=== PATIENT | male | born 1940 | race Caucasian/White ===

== ENCOUNTER 2020-09-01 20:26 | Inpatient (IN) ==
--- OUTSIDE RECORDS SUMMARY | 2020-09-01 20:29 | External Medical Summary | Continuity of Care Document ---
:1940 Author Name Andreas Paul, Provider Address Unavailable Unavailable , Care Team Providers Name Role Phone Jeffrey [email or web address] [email or web address] PCP, UNKNOWN Unavailable Unavailable Problems Active medical history not documented Allergies and Adverse Reactions Allergy history not documented Medications Medications not documented Procedures Procedures not documented Immunizations Immunizations not documented Plan of Treatment Planned Observations Planned Goals not documented Results No Known Results Results not documented
--- NOTE | 2020-09-01 21:02 | Emergency Department Note ---
History of Present Illness General Chief complaint: Shortness of Breath/Dyspnea Stated complaint: SOB; tumor R neck Time Seen by Provider: 09/01/20 20:48 Source: patient History of Present Illness Provider complaint: Shortness of breath Onset (ago): day(s) Location: chest Severity: moderate Pain Consistency: + intermittent Quality: + other (Shortness of breath) Relieved By: + none Associated symptoms: + chest pain (Tightness in chest today); no cough, no fever/chills and no nausea/vomiting This is an 80-year-old male with a history of CHF and a neck tumor presenting with shortness of breath today. The patient stated that he felt short of breath and had some tightness in his chest today. He was just discharged from the hospital at [facility] where they asked the ambulance to take him but they would not take him there. 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 He states that shortness of breath is worse when he moves around. He does have chronic swelling to his legs. He thinks he is on a blood thinner but is not sure. He denies any fever, cough, vomiting or diarrhea. He does feel some pressure in his abdomen. 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 I did obtain further history from the patient's as well as Bekah his daughter. They state that the patient was seen in [facility] 5 days ago. He was transferred to [facility] where he was discharged in order to get chemo and immunotherapy. The patient does have an appointment next Friday in [facility]. The patient was on Xarelto for atrial fibrillation but was taken off 2 weeks ago. He has been complaining of headaches for the past 2 months and has been taking ibuprofen on a regular basis. He was recently placed on narcotics which has caused him some bowel issues and he has not been eating very well recently. Home Medications Medication Instructions Recorded Confirmed Type diltiazem HCl 240 mg PO QAM 06/15/18 09/01/20 History furosemide [Lasix] 40 mg PO QAM 06/15/18 09/01/20 History potassium chloride [Klor-Con M20] 20 meq PO BID 06/15/18 09/01/20 History albuterol sulfate [Ventolin HFA] 2 puff INHALATION Q6H PRN 09/01/20 09/01/20 History artificial tears(hypromellose) 1 drp OPR TID 09/01/20 09/01/20 History atorvastatin 20 mg PO HS 09/01/20 09/01/20 History donepezil 5 mg PO QAM 09/01/20 09/01/20 History fentanyl 1 patch TRANSDERMAL [id number] 09/01/20 09/01/20 History metoprolol succinate 50 mg PO BID 09/01/20 09/01/20 History Allergies Allergy/AdvReac Type Severity Reaction Status Date / Time No Known Allergies Allergy Verified 09/01/20 22:27 Past Med/Surg History Medical History (Updated 09/02/20 @ 02:08 by Bindu Roman DO) Atrial fibrillation Dementia Dyslipidemia History of pacemaker Hypertension Neoplasm of neck Surgical History (Updated 09/02/20 @ 02:08 by Bindu Roman DO) History of cholecystectomy History of left knee replacement Family History (Updated 09/02/20 @ 02:09 by Bindu Roman DO) Other Family history non-contributory Social History (Updated 09/02/20 @ 02:09 by Bindu Roman DO) Smoking Status: Unknown if ever smoked Tobacco Type: Smokeless Tobacco (Dip or Chew) Hx Alcohol Use: Yes Alcohol type: beer Hx Substance Use: No Preferred Language: Turkish Feels Safe at Home: Yes Review of Systems See HPI for pertinent positives & negatives. and A total of 10 systems reviewed and were otherwise negative Physical Exam Vital Signs Vital Signs - 24 hr 09/01/20 20:25 09/01/20 20:48 09/01/20 20:57 Temperature 36.4 C L Temperature Source Oral Pulse Rate 89 96 H Pulse Rate from SpO2 Sensor 90 Pulse Rhythm Irregular Pulse Strength Normal Respiratory Rate 18 23 Respiratory Effort / Characteristics Non-Labored Respiratory Depth Normal Respiratory Pattern Regular Blood Pressure 141/45 H 136/70 Blood Pressure Mean 77 83 Blood Pressure Position Lying Pulse Oximetry 98 95 94 Oxygen Delivery Method Room Air Sepsis Recent Fever Within 48 Hours No Sepsis New/Unexplained Change in Mental Status N/A Sepsis Action Taken by Nursing No Action Required 09/01/20 21:00 09/01/20 22:00 09/01/20 22:30 Temperature Temperature Source Pulse Rate 98 H 76 91 H Pulse Rate from SpO2 Sensor 92 H 78 89 Pulse Rhythm Pulse Strength Respiratory Rate 19 14 19 Respiratory Effort / Characteristics Respiratory Depth Respiratory Pattern Blood Pressure 131/56 L 146/70 H 151/67 H Blood Pressure Mean 81 95 95 Blood Pressure Position Pulse Oximetry 96 99 98 Oxygen Delivery Method Sepsis Recent Fever Within 48 Hours Sepsis New/Unexplained Change in Mental Status Sepsis Action Taken by Nursing 09/01/20 23:00 09/01/20 23:45 09/01/20 23:50 Temperature Temperature Source Pulse Rate 85 88 Pulse Rate from SpO2 Sensor 199 H Pulse Rhythm Pulse Strength Respiratory Rate 17 19 Respiratory Effort / Characteristics Respiratory Depth Respiratory Pattern Blood Pressure 120/63 Blood Pressure Mean 82 Blood Pressure Position Pulse Oximetry 85 L Oxygen Delivery Method Room Air Sepsis Recent Fever Within 48 Hours Sepsis New/Unexplained Change in Mental Status Sepsis Action Taken by Nursing 09/02/20 00:00 09/02/20 00:03 09/02/20 00:19 Temperature 36.5 C Temperature Source Oral Pulse Rate 82 89 90 Pulse Rate from SpO2 Sensor 84 79 Pulse Rhythm Irregular Pulse Strength Normal Respiratory Rate 18 17 16 Respiratory Effort / Characteristics Respiratory Depth Respiratory Pattern Blood Pressure 138/55 L 138/55 L Blood Pressure Mean 74 82 Blood Pressure Position Lying Pulse Oximetry 99 98 96 Oxygen Delivery Method Sepsis Recent Fever Within 48 Hours Sepsis New/Unexplained Change in Mental Status Sepsis Action Taken by Nursing 09/02/20 00:31 09/02/20 00:46 09/02/20 00:47 Temperature Temperature Source Pulse Rate 88 90 89 Pulse Rate from SpO2 Sensor 82 87 90 Pulse Rhythm Pulse Strength Respiratory Rate 19 21 14 Respiratory Effort / Characteristics Respiratory Depth Respiratory Pattern Blood Pressure 109/59 L 145/93 H Blood Pressure Mean 69 105 Blood Pressure Position Pulse Oximetry 98 97 94 Oxygen Delivery Method Sepsis Recent Fever Within 48 Hours Sepsis New/Unexplained Change in Mental Status Sepsis Action Taken by Nursing 09/02/20 01:00 09/02/20 01:01 09/02/20 01:16 Temperature Temperature Source Pulse Rate 84 82 91 H Pulse Rate from SpO2 Sensor 80 85 88 Pulse Rhythm Pulse Strength Respiratory Rate 19 18 18 Respiratory Effort / Characteristics Respiratory Depth Respiratory Pattern Blood Pressure 138/73 116/70 Blood Pressure Mean 81 75 Blood Pressure Position Pulse Oximetry 100 95 97 Oxygen Delivery Method Sepsis Recent Fever Within 48 Hours Sepsis New/Unexplained Change in Mental Status Sepsis Action Taken by Nursing 09/02/20 01:30 09/02/20 01:31 09/02/20 01:52 Temperature Temperature Source Pulse Rate 86 94 H 89 Pulse Rate from SpO2 Sensor 83 87 89 Pulse Rhythm Pulse Strength Respiratory Rate 16 16 17 Respiratory Effort / Characteristics Respiratory Depth Respiratory Pattern Blood Pressure 138/76 110/51 L Blood Pressure Mean 87 84 Blood Pressure Position Pulse Oximetry 100 100 99 Oxygen Delivery Method Sepsis Recent Fever Within 48 Hours Sepsis New/Unexplained Change in Mental Status Sepsis Action Taken by Nursing Constitutional: Vital signs reviewed. Eyes: Pupils are equal round reactive to light. Conjunctiva are noninjected. ENT: Mucous membranes are dry. There is a large orange sized necrotic mass to the right side of the neck with swelling to the right pinna. Respiratory: Clear to auscultation bilaterally. Breath sounds are equal bilaterally. Cardiovascular: Irregularly irregular rhythm. Normal rate. GI: Soft, nondistended and nontender. Bowel sounds are present. Rectal: Guaiac positive melena. Musculoskeletal: Bilateral lower extremity pitting edema. Integumentary: No cyanosis. or jaundice. Neurological: The patient is awake and alert. No focal deficits. Psychiatric: Normal affect. Course Administered Medications Pantoprazole Sodium 40 mg/ (Dextrose) 100 mls @ 20 mls/hr IV Q5H [facility] Stop: 10/01/20 22:16 Last Admin: 09/01/20 22:24 Dose: 8 mg/hr, 20 mls/hr Documented by: [id number] Vancomycin HCl 2,500 mg/ (Sodium Chloride) 550 mls @ 180 mls/hr IV NOW ONE Stop: 09/02/20 03:55 Last Admin: 09/02/20 01:55 Dose: 180 mls/hr Documented by: [id number] Discontinued Medications Pantoprazole Sodium (Protonix Bolus/Drip) 0 mls @ 1 mls/hr IV ONE STA Stop: 09/01/20 22:00 Last Admin: 09/01/20 22:24 Dose: 1 mls/hr Documented by: [id number] Pantoprazole Sodium 80 mg/ (Dextrose) 120 mls @ 400 mls/hr IV NOW ONE Stop: 09/01/20 22:16 Last Infusion: 09/01/20 22:49 Dose: 0 mls/hr Documented by: [id number] Admin: 09/01/20 22:24 Dose: 400 mls/hr Documented by: [id number] Cefepime HCl (Maxipime) 2,000 mg in 20 mls @ 5 mls/min IV NOW STA; Protocol Stop: 09/01/20 22:17 Last Admin: 09/01/20 22:27 Dose: 5 mls/min Documented by: [id number] Morphine Sulfate (Morphine Sulfate 2 Mg/Ml Carp) 2 mg IV NOW STA Stop: 09/02/20 01:41 Last Admin: 09/02/20 01:48 Dose: 2 mg Documented by: [id number] Ondansetron HCl (Ondansetron Inj 2 Mg/Ml 2 Ml Vial) 4 mg IV NOW STA Stop: 09/02/20 01:41 Last Admin: 09/02/20 01:48 Dose: 4 mg Documented by: [id number] Critical Care Time Critical Care Time: Yes Total Critical Care Time: 45 I have personally spent approximately 45 minutes of critical care time in the direct management of this patient. This includes bedside care, interpretation of diagnostic studies, and testing, discussion with consultants, patient, and family members, and other required patient management activities. These minutes are in excess of all separately billable procedures. Medical Decision Making Differential Diagnosis CHF exacerbation, pulmonary edema, neck mass, pneumonia, anemia Medical Records Attestation: I reviewed the patient's medical records. I did perform a limited focused review of portions of the patient's old chart on the electronic medical record. The patient has had no recent pertinent visits to this hospital. Home Medications Current Medication List: was personally reviewed by me Laboratory Data Attestation: I reviewed the patient's lab results. Result diagrams: 09/01/20 21:49 09/01/20 21:49 Lab Results 09/01/20 09/01/20 09/01/20 Range/Units 21:49 21:49 21:49 WBC 38.61 H* (4.8-10.8) K/uL RBC 2.16 L (4.7-6.1) M/uL Hgb 6.2 L* (14.0-18.0) g/dL Hct 19.2 L* (42-52) % MCV 88.9 (80-100) fL MCH 28.7 (25-34) pg MCHC 32.3 (32-36) g/dL RDW Std Deviation 47.6 H (36.4-46.3) fL RDW Coeff of Sheri 15.2 H (11.5-14.5) % Plt Count 364 (130-400) K/uL MPV 8.9 (7.4-10.4) fL Absolute Nucleated RBC 1.73 H (0-0) K/uL Nucleated RBC % (auto) 4.5 % Neutrophils % (Manual) 87.9 % Lymphocytes % (Manual) 2.6 % Monocytes % (Manual) 6.1 % Metamyelocytes % (Man) 1.7 % Myelocytes % (Man) 1.7 % Neutrophils # (Manual) 33.94 H (1.4-6.5) K/uL Total Absolute Neuts 33.94 H (1.4-6.5) K/uL Lymphocytes # (Manual) 1.00 L (1.2-3.4) K/uL Total Abs Lymphocytes 1.00 L (1.2-3.4) K/uL Monocytes # (Manual) 2.36 H (0.11-0.59) K/uL Metamyelocytes # (Man) 0.66 H (0-0) K/uL Myelocytes # (Manual) 0.66 H (0-0) K/uL Polychromasia 1+ PT Cancelled INR Cancelled APTT Cancelled PTT Ratio Cancelled Sodium 137 (136-145) mmol/L Potassium 4.7 (3.5-5.1) mmol/L Chloride 104 (98-107) mmol/L Carbon Dioxide 19 L (21-32) mmol/L Anion Gap 13.0 H (3-11) BUN 81 H (7-18) mg/dl Creatinine 2.37 H (0.6-1.4) mg/dl Est Cr Clr Drug Dosing 31.2 ml/min Est GFR ( Amer) 28.7 Est GFR (Non-Af Amer) 24.8 BUN/Creatinine Ratio 34.3 H (10-20) Glucose 169 H (70-99) mg/dl Lactate (0.4-2.0) mmol/L Uric Acid 10.7 H (2.6-7.2) mg/dl Calcium 8.0 L (8.5-10.1) mg/dl Phosphorus 4.9 (2.5-4.9) mg/dl Total Bilirubin 0.5 (0.2-1) mg/dl AST 22 (15-37) U/L ALT 32 (12-78) U/L Alkaline Phosphatase 70 (45-117) U/L Lactate Dehydrogenase (87-241) U/L Troponin I < 0.015 (0-0.045) ng/ml NT-Pro-B Natriuret Pep 4292 H (0-1800) pg/ml Total Protein 4.9 L (6.4-8.2) gm/dl Albumin 1.9 L (3.4-5.0) gm/dl Globulin 3.0 (2.5-4.0) gm/dl Albumin/Globulin Ratio 0.6 L (0.9-2) Urine Color Urine Appearance (Clear) Urine pH (4.5-7.5) Ur Specific [place] (1.000-1.030) Urine Protein (Negative) Urine Glucose (UA) (Negative) Urine Ketones (Negative) Urine Blood (Negative) Urine Nitrite (Negative) Urine Bilirubin (Negative) Urine Urobilinogen (Negative) Ur Leukocyte Esterase (Negative) Urine WBC (Auto) (0-5) /hpf Urine RBC (Auto) (0-4) /hpf U Hyaline Cast (Auto) (0-5) /lpf U Epithel Cells (Auto) (0-5) /lpf Urine Bacteria (Auto) (Negative) COVID-19 Eval Order SARS-CoV-2, RNA, NAAT (NEGATIVE) Blood Type Antibody Screen Crossmatch 09/01/20 09/01/20 09/01/20 Range/Units 21:49 21:51 21:51 WBC (4.8-10.8) K/uL RBC (4.7-6.1) M/uL Hgb (14.0-18.0) g/dL Hct (42-52) % MCV (80-100) fL MCH (25-34) pg MCHC (32-36) g/dL RDW Std Deviation (36.4-46.3) fL RDW Coeff of Sheri (11.5-14.5) % Plt Count (130-400) K/uL MPV (7.4-10.4) fL Absolute Nucleated RBC (0-0) K/uL Nucleated RBC % (auto) % Neutrophils % (Manual) % Lymphocytes % (Manual) % Monocytes % (Manual) % Metamyelocytes % (Man) % Myelocytes % (Man) % Neutrophils # (Manual) (1.4-6.5) K/uL Total Absolute Neuts (1.4-6.5) K/uL Lymphocytes # (Manual) (1.2-3.4) K/uL Total Abs Lymphocytes (1.2-3.4) K/uL Monocytes # (Manual) (0.11-0.59) K/uL Metamyelocytes # (Man) (0-0) K/uL Myelocytes # (Manual) (0-0) K/uL Polychromasia PT INR APTT PTT Ratio Sodium (136-145) mmol/L Potassium (3.5-5.1) mmol/L Chloride (98-107) mmol/L Carbon Dioxide (21-32) mmol/L Anion Gap (3-11) BUN (7-18) mg/dl Creatinine (0.6-1.4) mg/dl Est Cr Clr Drug Dosing ml/min Est GFR ( Amer) Est GFR (Non-Af Amer) BUN/Creatinine Ratio (10-20) Glucose (70-99) mg/dl Lactate 7.4 H* (0.4-2.0) mmol/L Uric Acid (2.6-7.2) mg/dl Calcium (8.5-10.1) mg/dl Phosphorus (2.5-4.9) mg/dl Total Bilirubin (0.2-1) mg/dl AST (15-37) U/L ALT (12-78) U/L Alkaline Phosphatase (45-117) U/L Lactate Dehydrogenase 249 H (87-241) U/L Troponin I (0-0.045) ng/ml NT-Pro-B Natriuret Pep (0-1800) pg/ml Total Protein (6.4-8.2) gm/dl Albumin (3.4-5.0) gm/dl Globulin (2.5-4.0) gm/dl Albumin/Globulin Ratio (0.9-2) Urine Color Yellow Urine Appearance Cloudy A (Clear) Urine pH 5.0 (4.5-7.5) Ur Specific [place] 1.018 (1.000-1.030) Urine Protein Negative (Negative) Urine Glucose (UA) Negative (Negative) Urine Ketones Trace H (Negative) Urine Blood Negative (Negative) Urine Nitrite Negative (Negative) Urine Bilirubin Negative (Negative) Urine Urobilinogen Negative (Negative) Ur Leukocyte Esterase Trace H (Negative) Urine WBC (Auto) 1-5 (0-5) /hpf Urine RBC (Auto) 0-4 (0-4) /hpf U Hyaline Cast (Auto) >30 H (0-5) /lpf U Epithel Cells (Auto) 20-30 H (0-5) /lpf Urine Bacteria (Auto) Negative (Negative) COVID-19 Eval Order SARS-CoV-2, RNA, NAAT (NEGATIVE) Blood Type Antibody Screen Crossmatch 09/01/20 09/01/20 09/02/20 Range/Units 22:33 22:55 01:16 WBC (4.8-10.8) K/uL RBC (4.7-6.1) M/uL Hgb (14.0-18.0) g/dL Hct (42-52) % MCV (80-100) fL MCH (25-34) pg MCHC (32-36) g/dL RDW Std Deviation (36.4-46.3) fL RDW Coeff of Hseri (11.5-14.5) % Plt Count (130-400) K/uL MPV (7.4-10.4) fL Absolute Nucleated RBC (0-0) K/uL Nucleated RBC % (auto) % Neutrophils % (Manual) % Lymphocytes % (Manual) % Monocytes % (Manual) % Metamyelocytes % (Man) % Myelocytes % (Man) % Neutrophils # (Manual) (1.4-6.5) K/uL Total Absolute Neuts (1.4-6.5) K/uL Lymphocytes # (Manual) (1.2-3.4) K/uL Total Abs Lymphocytes (1.2-3.4) K/uL Monocytes # (Manual) (0.11-0.59) K/uL Metamyelocytes # (Man) (0-0) K/uL Myelocytes # (Manual) (0-0) K/uL Polychromasia PT 11.7 INR 1.1 APTT 21.0 PTT Ratio 0.8 Sodium (136-145) mmol/L Potassium (3.5-5.1) mmol/L Chloride (98-107) mmol/L Carbon Dioxide (21-32) mmol/L Anion Gap (3-11) BUN (7-18) mg/dl Creatinine (0.6-1.4) mg/dl Est Cr Clr Drug Dosing ml/min Est GFR ( Amer) Est GFR (Non-Af Amer) BUN/Creatinine Ratio (10-20) Glucose (70-99) mg/dl Lactate 4.8 H* (0.4-2.0) mmol/L Uric Acid (2.6-7.2) mg/dl Calcium (8.5-10.1) mg/dl Phosphorus (2.5-4.9) mg/dl Total Bilirubin (0.2-1) mg/dl AST (15-37) U/L ALT (12-78) U/L Alkaline Phosphatase (45-117) U/L Lactate Dehydrogenase (87-241) U/L Troponin I (0-0.045) ng/ml NT-Pro-B Natriuret Pep (0-1800) pg/ml Total Protein (6.4-8.2) gm/dl Albumin (3.4-5.0) gm/dl Globulin (2.5-4.0) gm/dl Albumin/Globulin Ratio (0.9-2) Urine Color Urine Appearance (Clear) Urine pH (4.5-7.5) Ur Specific [place] (1.000-1.030) Urine Protein (Negative) Urine Glucose (UA) (Negative) Urine Ketones (Negative) Urine Blood (Negative) Urine Nitrite (Negative) Urine Bilirubin (Negative) Urine Urobilinogen (Negative) Ur Leukocyte Esterase (Negative) Urine WBC (Auto) (0-5) /hpf Urine RBC (Auto) (0-4) /hpf U Hyaline Cast (Auto) (0-5) /lpf U Epithel Cells (Auto) (0-5) /lpf Urine Bacteria (Auto) (Negative) COVID-19 Eval Order SARS-CoV-2, RNA, NAAT (NEGATIVE) Blood Type A Positive Antibody Screen NEGATIVE Crossmatch See Detail 09/02/20 09/02/20 Range/Units 01:20 01:20 WBC (4.8-10.8) K/uL RBC (4.7-6.1) M/uL Hgb (14.0-18.0) g/dL Hct (42-52) % MCV (80-100) fL MCH (25-34) pg MCHC (32-36) g/dL RDW Std Deviation (36.4-46.3) fL RDW Coeff of Sheri (11.5-14.5) % Plt Count (130-400) K/uL MPV (7.4-10.4) fL Absolute Nucleated RBC (0-0) K/uL Nucleated RBC % (auto) % Neutrophils % (Manual) % Lymphocytes % (Manual) % Monocytes % (Manual) % Metamyelocytes % (Man) % Myelocytes % (Man) % Neutrophils # (Manual) (1.4-6.5) K/uL Total Absolute Neuts (1.4-6.5) K/uL Lymphocytes # (Manual) (1.2-3.4) K/uL Total Abs Lymphocytes (1.2-3.4) K/uL Monocytes # (Manual) (0.11-0.59) K/uL Metamyelocytes # (Man) (0-0) K/uL Myelocytes # (Manual) (0-0) K/uL Polychromasia PT INR APTT PTT Ratio Sodium (136-145) mmol/L Potassium (3.5-5.1) mmol/L Chloride (98-107) mmol/L Carbon Dioxide (21-32) mmol/L Anion Gap (3-11) BUN (7-18) mg/dl Creatinine (0.6-1.4) mg/dl Est Cr Clr Drug Dosing ml/min Est GFR ( Amer) Est GFR (Non-Af Amer) BUN/Creatinine Ratio (10-20) Glucose (70-99) mg/dl Lactate (0.4-2.0) mmol/L Uric Acid (2.6-7.2) mg/dl Calcium (8.5-10.1) mg/dl Phosphorus (2.5-4.9) mg/dl Total Bilirubin (0.2-1) mg/dl AST (15-37) U/L ALT (12-78) U/L Alkaline Phosphatase (45-117) U/L Lactate Dehydrogenase (87-241) U/L Troponin I (0-0.045) ng/ml NT-Pro-B Natriuret Pep (0-1800) pg/ml Total Protein (6.4-8.2) gm/dl Albumin (3.4-5.0) gm/dl Globulin (2.5-4.0) gm/dl Albumin/Globulin Ratio (0.9-2) Urine Color Urine Appearance (Clear) Urine pH (4.5-7.5) Ur Specific [place] (1.000-1.030) Urine Protein (Negative) Urine Glucose (UA) (Negative) Urine Ketones (Negative) Urine Blood (Negative) Urine Nitrite (Negative) Urine Bilirubin (Negative) Urine Urobilinogen (Negative) Ur Leukocyte Esterase (Negative) Urine WBC (Auto) (0-5) /hpf Urine RBC (Auto) (0-4) /hpf U Hyaline Cast (Auto) (0-5) /lpf U Epithel Cells (Auto) (0-5) /lpf Urine Bacteria (Auto) (Negative) [facility], [facility], NAAT NEGATIVE (NEGATIVE) Blood Type Antibody Screen Crossmatch Imaging Data Attestation: I personally reviewed and interpreted this imaging study as follows: My Impression: Acute abdominal series x-rays per my interpretation shows cardiomegaly and dilated bowel loops. Radiologist's Impression: Preliminary Findings Only See Final Report For Complete Findings CT HEAD: No acute intracranial hemorrhage, extra-axial fluid collection or mass-effect. There is age-related generalized cerebral volume loss and presumed chronic microvascular ischemic changes in the supratentorial white matter. CT NECK: There is a large ulcerated soft tissue mass centered within the right parotid gland and extending caudally along the right sternocleidomastoid muscle. Metallic artifact from probable embolization material is visualized along the posterior margin of the right mandible. There is right cervical chain lymphadenopathy. The airway is patent. No underlying osseous invasion is visualized. Nodular thickening concerning for neoplastic involvement is visualized within the posterior and medial margins of the left pleural space, which is only partially included in the [id number]. Biapical lung nodules are partially included in the [id number], suspicious for pulmonary metastases. Moderate amount of debris is visualized within the esophagus. Prominent arthroscopic calcifications of the aortic arch and to a lesser extent the arch vessels. CT ABDOMEN & PELVIS Without Contrast: No acute findings within the abdomen or pelvis. The bowel including the appendix is unremarkable. No evidence of bowel obstruction. No free air or free fluid in the abdomen or pelvis. Left pleural effusion with pleural thickening which may indicate a malignant pleural effusion. Numerous nodules are visualized within both lung bases suspicious for pulmonary metastases. Extensive atherosclerotic calcifications of the aorta, biiliac arteries and visceral branch vessels. Lobulated cystic structure right hepatic dome with additional subcentimeter low- density lesions in both the right and left hepatic lobe which are too small to characterize. Subcentimeter low-density lesions also noted within the spleen. While these may represent cysts, given the presence of known neoplasm within the right neck, metastases are not excluded. Mild degenerative changes both hips as well as spine. Radiologist: Ayanna Angulo M.D. Study ready at 00:01 and initial results transmitted at 00:35 ECG Data Attestation: I personally reviewed and interpreted this ECG as follows: Indication: + chest pain and + SOB/dyspnea Rate (beats per minute): 92 Rhythm: + atrial fibrillation ECG ST segments: + Nonspecific ST abnormalities ECG Findings: + PVCs; no Q waves MDM Narrative I did evaluate the patient as noted above. I did obtain history from the patient as well as his and his daughter over the telephone. She does state that he is a full code. He is presenting with chest pain and shortness of breath. He is not having any chest pain right now. He also had a headache earlier but has had headaches for over 2 weeks. Ultrasound-guided IV access was established. I did place an order for continuous cardiac monitoring. The monitor showed atrial fibrillation at a rate of 92 bpm. I did order and personally review the patient's 12-lead EKG as described above. He has atrial fibrillation with nonspecific ST changes. I did order and personally reviewed the images of the patient's chest and abdominal x-rays as described above. He has some distended bowel loops and cardiomegaly. I did order a urine analysis. I did order and review the patient's blood work as noted in the electronic medical record. Hemoglobin is 6.2. White count is 38.6. Creatinine is elevated at 2.37. BUN is 81. Troponin is negative. B [employer] is elevated. Lactate is over 7. They did have a very difficult time getting blood work from him so it is unclear if this lactate might be artificially elevated. His previous labs from [facility] showed a hemoglobin of 11.2, white blood cell count of 19 and creatinine of 1 on August 28. Blood cultures were obtained. The patient was given cefepime 2 g IV. I did obtain informed consent for blood transfusion. I did order 2 units of crossmatched blood. I did start the patient on IV Protonix. He was given a bolus and a continuous drip. I did order a CT of the head, soft tissue neck and abdomen and pelvis. I did review the images myself as well as the radiology report as described above.There is no intracranial hemorrhage or acute abnormality. CT neck shows a large ulcerated soft tissue mass centered within the right parotid gland and extending caudally along the right sternocleidomastoid muscle.CT of the abdomen pelvis shows no acute findings within the abdomen pelvis. ThereIs a left pleural effusion with pleural thickening which could indicate a malignant pleural effusion and numerous nodules within both lung bases concerning for metastatic disease. I did discuss the test results with the patient. He was given morphine 2 mg IV and Zofran 4 mg IV for pain all over his body. The patient is currently being transfused his first unit of blood.He remains hemodynamically stable. He will be hospitalized for further care and evaluation. Impression & Plan Acute upper gastrointestinal bleeding, Anemia due to acute blood loss, BRINDA (acute kidney injury), Chest pain Discharge Plan Visit Data Chief Complaint: Shortness of Breath/Dyspnea Stated Complaint: SOB; tumor R neck ED Provider: Jose De Jesus Cook Discharge Problem: Acute upper gastrointestinal bleeding, Anemia due to acute blood loss, BRINDA (acute kidney injury), Chest pain Patient Disposition: Admitted As Inpatient Forms Stand Alone Forms: [facility] Prescriptions Prescriptions: No Action furosemide [Lasix] 40 mg Tablet 40 mg PO QAM RF: 0 diltiazem HCl 240 mg Capsule,Ext.Rel 24h Degradable 240 mg PO QAM RF: 0 potassium chloride [Klor-Con M20] 20 mEq Tablet,Er Particles/Crystals 20 meq PO BID RF: 0 atorvastatin 40 mg Tablet 20 mg PO HS RF: 0 donepezil 5 mg Tablet 5 mg PO QAM RF: 0 metoprolol succinate 50 mg Tablet Extended Release 24 Hr 50 mg PO BID RF: 0 albuterol sulfate [Ventolin HFA] 90 mcg/actuation Hfa Aerosol Inhaler 2 puff INHALATION Q6H PRN (Reason: Shortness Of Breath) RF: 0 artificial tears(hypromellose) 0.5 % Drops 1 drp OPR TID RF: 0 fentanyl 25 mcg/hr Patch 72 Hour 1 patch TRANSDERMAL [id number] RF: 0 Referrals Referrals: PCP,NO [Primary Care Provider] - Discharge Problem: Chest pain Qualifiers: Chest pain type: unspecified Qualified Code(s): R07.9 - Chest pain, unspecified
[2020-09-01] MEDS ORDERED: PANTOPRAZOLE BOLUS/DRIP 1 EA IV STA (21:59)
[2020-09-01] MEDS ORDERED: PANTOprazole 80 MG in DEXTROSE 5% 100 ML IV ONE (21:59)
[2020-09-01] MEDS ORDERED: CEFEPIME 2,000 MG/20 ML VIAL IV STA (22:14)
[2020-09-01] MEDS ORDERED: SODIUM CHLORIDE 0.9% 250 ML IV PRN (22:14)
[2020-09-01] MEDS ORDERED: PANTOprazole 40 MG in DEXTROSE 5% 100 ML IV SCH (22:17)
[2020-09-01 22:20] LABS: Alanine Aminotransferase 32 U/L (12-78); Albumin Level 1.9 gm/dl (3.4-5.0); Aspartate Aminotransferase 22 U/L (15-37); BUN Creatinine Ratio 34.3 (10-20); Blood Urea Nitrogen 81 mg/dl (7-18); Carbon Dioxide 19 mmol/L (21-32); Chloride 104 mmol/L (98-107); Creatinine Clr Calc Pharmacy 31.2 ml/min; Est GFR (African American) 28.7; Est GFR (Non-African American) 24.8; Glucose 169 mg/dl (70-99); Potassium 4.7 mmol/L (3.5-5.1); Sodium 137 mmol/L (136-145)
[2020-09-01 22:24] LABS: Albumin Globulin Ratio 0.6 (0.9-2); Alkaline Phosphatase 70 U/L (45-117); Bilirubin,Total 0.5 mg/dl (0.2-1); NT Pro B Type Natriuretic Pept 4292 pg/ml (0-1800); Total Protein 4.9 gm/dl (6.4-8.2); Troponin I < 0.015 ng/ml (0-0.045)
[2020-09-01 22:27] LABS: Hematocrit (blood only) 19.2 % (42-52); Hemoglobin 6.2 g/dL (14.0-18.0); Mean Corpuscular Hemoglobin 28.7 pg (25-34); Mean Corpuscular Hgb Conc 32.3 g/dL (32-36); Mean Corpuscular Volume 88.9 fL (80-100); Mean Platelet Volume 8.9 fL (7.4-10.4); Nucleated RBC # (auto) 1.73 K/uL (0-0); Nucleated RBC % (auto) 4.5 %; Platelet Count 364 K/uL (130-400); RDW Coefficient of Variation 15.2 % (11.5-14.5); RDW Standard Deviation 47.6 fL (36.4-46.3); Red Blood Count 2.16 M/uL (4.7-6.1); White Blood Count 38.61 K/uL (4.8-10.8)
[2020-09-01 22:28] LABS: ANC (manual) 33.94 K/uL (1.4-6.5); Lymphocytes % (manual) 2.6 %; Metamyelocytes # (manual) 0.66 K/uL (0-0); Metamyelocytes % (manual) 1.7 %; Monocytes # (manual) 2.36 K/uL (0.11-0.59); Monocytes % (manual) 6.1 %; Myelocytes # (manual) 0.66 K/uL (0-0); Myelocytes % (manual) 1.7 %; Neutrophils # (manual) 33.94 K/uL (1.4-6.5); Neutrophils % (manual) 87.9 %; Polychromasia 1+
[2020-09-01 23:20] LABS: INR 1.1 (0.9-1.1); Partial Thromboplastin Ratio 0.8; Prothrombin Time 11.7 Seconds (9.0-12.0)
[2020-09-02] MEDS ORDERED: VANCOMYCIN HCL 2,500 MG in SODIUM CHLORIDE 0.9% 500 ML IV ONE (00:52)
[2020-09-02] MEDS ORDERED: VANCOMYCIN CONSULT ACTIVE PRN ×2 (00:52→02:33)
[2020-09-02 01:08] LABS: Appearance Urine Cloudy (Clear); Bacteria Urine Automated Negative (Negative); Bilirubin Urine Negative (Negative); Blood Urine Negative (Negative); Color Urine Yellow; Epithelial Cell Urine Auto 20-30 /lpf (0-5); Glucose Urine UA Negative (Negative); Ketones Urine Trace (Negative); Leukocyte Esterase Urine Trace (Negative); Nitrite Urine Negative (Negative); Protein Urine Negative (Negative); RBC Urine Automated 0-4 /hpf (0-4); Specific Gravity Urine 1.018 (1.000-1.030); Urobilinogen Urine Negative (Negative)
[2020-09-02 01:20] LABS: Phosphorus 4.9 mg/dl (2.5-4.9); Uric Acid 10.7 mg/dl (2.6-7.2)
[2020-09-02 01:24] LABS: Cast Urine Automated >30 /lpf (0-5)
[2020-09-02] MEDS ORDERED: ONDANSETRON INJ 2 MG/ML 2 ML VIAL IV STA (01:40)
[2020-09-02] MEDS ORDERED: MoRPHine SULFATE 2 MG/ML CARP IV STA (01:40)
--- NOTE | 2020-09-02 02:18 | History & Physical Report ---
Date of Service September 02, 2020 Assessment & Plan (1) Anemia due to acute blood loss: Patient with normochromic, normocytic anemia with Hgb=6.2, Hct=19.2. He is not currently on any blood thinners. Concern for UGIB given complaint of abdominal pain, nausea as well as epigastric discomfort on exam. He is hemodynamically stable at present. -Admit to PCU -Maintain 2 large PIVs -Transfuse 2u PRBCs now -Monitor CBC q 6 hours -Protonix drip continued -GI Consultation appreciated -Zofran PRN nausea Present on Admission?: Yes (2) Neoplasm of neck: Patient with large neoplasm of the right neck, presumably squamous cell carcinoma. He has had very little formal workup done thus far at outside institutions. He has not had complete staging as of yet. Imaging performed today concerning for pulmonary metastases, possible malignant effusion as well as possible metastases to liver and spleen. Patient is to establish care with Heme-Onc at [facility] next week and hopes to start chemotherapy and immunotherapy. Tumor is not currently bleeding. Does not appear to be invading vessels or osseous structures on imaging -Consult Heme-Onc - assistance appreciated Present on Admission?: Yes (3) Dementia: Patient with mild dementia -Continue Aricept Present on Admission?: Yes (4) Dyslipidemia: Chronic. Stable -Continue Atorvastatin Present on Admission?: Yes (5) Hypertension: Blood pressure stable -Hold Metoprolol in setting of acute bleed -Continue to monitor Present on Admission?: Yes (6) Atrial fibrillation: Patient with pacer in place. Currently not on anticoagulation therapy given recent bleeding from tumor -Holding Metoprolol and Diltiazem for now in setting of active bleeding -Continue to monitor Present on Admission?: Yes (7) BRINDA (acute kidney injury): Elevated BUN and Cr. Uncertain baseline. Most likely secondary to poor perfusion in setting of acute blood loss anemia. UA unremarkable. TLS rare in solid tumors, patient has not yet begun chemotherapy. K, PO4 are within normal limits. Uric acid and LDH are elevated -Avoid nephrotoxic agents -Monitor renal function after transfusion -Check urine Na and Cr for FeNA Present on Admission?: Yes (8) Leukocytosis: WBC=38.6 - Neutrophil predominant. Slight elevation in myelocytes/metamyelocytes as well. ?reactive in setting of acute stress, underlying malignancy, ?infection -Check peripheral smear -Follow cultures -Empiric antibiotic coverage with Vancomycin and Cefepime F/E/N - Transfusion PRBCs x 2 units as above. Monitor electrolytes. NPO for now Ppx - NO chemoppx given concern for acute bleed, SCDs Code - Full per discussion with daughter Dispo - Admit to PCU POC - Blossom Kimble - [phone]. Updated on patient's status and care plan at time of admission. History of Present Illness Chief Complaint: SOB, abdominal pain Primary Care Provider: NO PCP History obtained through discussion with daughter - [phone] Joe Wolf is an 80yo male with history of Atrial Fibrillation, HTN, HLP and large SCC of right neck presenting with abdominal pain and SOB as well as nausea, lightheadedness, melena. Hgb=6.2 concerning for acute blood loss anemia possibly secondary to GIB. Patient has been in and out of hospitals over the last few weeks. 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 He was seen in the ER at [facility] and was sent to [facility] in [place]. They were told that the bleeding in the tumor was from an arterial source. The vessel was embolized and the patient was sent home. The PET scan was never completed. Approximately 2 weeks ago he developed weakness and shortness of breath. He was taken to [facility] and diagnosed with a UTI as well as having his Fentanyl patch discontinued. He returned home. He was seen by his home Physical Therapist on 08/28/20 and was thought to have right sided facial droop concerning for a new CVA. He returned to [facility] for workup. He was told that he did not have a stroke but that the neck tumor was compressing the nerves and structures in his neck. He returned to [place] on 08/29/[address] Mae from Med-Onc to begin a plan for chemotherapy. She felt it best to start chemotherapy and immunotherapy on an outpatient basis. The family wishes to pursue their cancer treatment locally so Dr. Mae discussed the plan with Dr. Salas in [place]. They have an appointment to see Dr. Salas on 09/05/20. Patient returned home from [place] last evening. He has been complaining of lightheadedness, nausea and abdominal pain as well as decreased PO intake. His daughter states he has had dark, tarry stools for the last 1.5 weeks. Patient states that he feels "sick" but does not offer more specific complaints at this time. ER Course: Vancomycin 2500mg, Protonix bolus and drip, Zofran 4mg IV, Morphine 2mg IV, Cefepime, 2u PRBCs started, ER reports dark, Heme+ stools Allergies Allergy/AdvReac Type Severity Reaction Status Date / Time No Known Allergies Allergy Verified 09/01/20 22:27 Home Medications Medication Instructions Recorded Confirmed Type diltiazem HCl 240 mg PO QAM 06/15/18 09/01/20 History furosemide [Lasix] 40 mg PO QAM 06/15/18 09/01/20 History potassium chloride [Klor-Con M20] 20 meq PO BID 06/15/18 09/01/20 History albuterol sulfate [Ventolin HFA] 2 puff INHALATION Q6H PRN 09/01/20 09/01/20 History artificial tears(hypromellose) 1 drp OPR TID 09/01/20 09/01/20 History atorvastatin 20 mg PO HS 09/01/20 09/01/20 History donepezil 5 mg PO QAM 09/01/20 09/01/20 History fentanyl 1 patch TRANSDERMAL [id number] 09/01/20 09/01/20 History metoprolol succinate 50 mg PO BID 09/01/20 09/01/20 History Past Med/Surg History Medical History (Updated 09/02/20 @ 02:33 by Bindu Roman DO) Atrial fibrillation Dementia Dyslipidemia History of pacemaker Hypertension Neoplasm of neck Surgical History (Updated 09/02/20 @ 02:08 by Bindu Roman DO) History of cholecystectomy History of left knee replacement Family History (Updated 09/02/20 @ 02:09 by Bindu Roman DO) Other Family history non-contributory Social History (Updated 09/02/20 @ 02:09 by Bindu Roman DO) Smoking Status: Unknown if ever smoked Tobacco Type: Smokeless Tobacco (Dip or Chew) Hx Alcohol Use: Yes Alcohol type: beer Hx Substance Use: No Preferred Language: Sammarinese Feels Safe at Home: Yes Review of Systems Review of Systems: All systems reviewed & are unremarkable except as noted in HPI & below +SOB, nausea, dizziness, abdominal pain Physical Exam Physical Exam: General: obese, elderly male, ill in appearance, awake and alert to self Skin: pale, no rashes HEENT: NC/AT, PERRL, anicteric sclera, conjunctiva without injection, external ear normal to inspection and nontender, nares patent, moist mucus membranes, dentition intact, no oropharyngeal lesions, trachea midline, no thyromegaly, large mass on right neck with eschar. No active bleeding, oozing or drainage, dressing in place Heart: +S1/S2, regular, no m/r/g Lungs: equal air entry bilaterally, no rales/rhonchi/wheezes Abd: +BS, soft, diffusely tender with voluntary guarding, most in epigastric ilia, no masses/organomegaly/ascites Ext: cool, palpable pulses in UE/LE bilaterally, 3+ edema of bilateral LE Neuro: patient oriented to self, following commands, +right facial droop Results & Data Results & Data ([facility]) Vital Signs (Past 12 Hours) Vital Signs Temp Pulse Resp BP Pulse Ox 09/02/20 00:46 90 21 145/93 H 97 09/02/20 00:31 88 19 109/59 L 98 09/02/20 00:19 36.5 C 90 16 138/55 L 96 09/02/20 00:03 89 17 138/55 L 98 09/02/20 00:00 82 18 99 09/01/20 23:50 88 19 09/01/20 23:00 85 17 120/63 85 L 09/01/20 22:30 91 H 19 151/67 H 98 09/01/20 22:00 76 14 146/70 H 99 09/01/20 21:00 98 H 19 131/56 L 96 09/01/20 20:57 94 09/01/20 20:48 96 H 23 136/70 95 09/01/20 20:25 36.4 C L 89 18 141/45 H 98 Laboratory Results Lab Results 09/01/20 09/01/20 09/01/20 Range/Units 21:49 21:49 21:49 WBC 38.61 H* (4.8-10.8) K/uL RBC 2.16 L (4.7-6.1) M/uL Hgb 6.2 L* (14.0-18.0) g/dL Hct 19.2 L* (42-52) % MCV 88.9 (80-100) fL MCH 28.7 (25-34) pg MCHC 32.3 (32-36) g/dL RDW Std Deviation 47.6 H (36.4-46.3) fL RDW Coeff of Sheri 15.2 H (11.5-14.5) % Plt Count 364 (130-400) K/uL MPV 8.9 (7.4-10.4) fL Absolute Nucleated RBC 1.73 H (0-0) K/uL Nucleated RBC % (auto) 4.5 % Neutrophils % (Manual) 87.9 % Lymphocytes % (Manual) 2.6 % Monocytes % (Manual) 6.1 % Metamyelocytes % (Man) 1.7 % Myelocytes % (Man) 1.7 % Neutrophils # (Manual) 33.94 H (1.4-6.5) K/uL Total Absolute Neuts 33.94 H (1.4-6.5) K/uL Lymphocytes # (Manual) 1.00 L (1.2-3.4) K/uL Total Abs Lymphocytes 1.00 L (1.2-3.4) K/uL Monocytes # (Manual) 2.36 H (0.11-0.59) K/uL Metamyelocytes # (Man) 0.66 H (0-0) K/uL Myelocytes # (Manual) 0.66 H (0-0) K/uL Polychromasia 1+ PT Cancelled INR Cancelled APTT Cancelled PTT Ratio Cancelled Sodium 137 (136-145) mmol/L Potassium 4.7 (3.5-5.1) mmol/L Chloride 104 (98-107) mmol/L Carbon Dioxide 19 L (21-32) mmol/L Anion Gap 13.0 H (3-11) BUN 81 H (7-18) mg/dl Creatinine 2.37 H (0.6-1.4) mg/dl Est Cr Clr Drug Dosing 31.2 ml/min Est GFR ( Amer) 28.7 Est GFR (Non-Af Amer) 24.8 BUN/Creatinine Ratio 34.3 H (10-20) Glucose 169 H (70-99) mg/dl Lactate (0.4-2.0) mmol/L Uric Acid 10.7 H (2.6-7.2) mg/dl Calcium 8.0 L (8.5-10.1) mg/dl Phosphorus 4.9 (2.5-4.9) mg/dl Total Bilirubin 0.5 (0.2-1) mg/dl AST 22 (15-37) U/L ALT 32 (12-78) U/L Alkaline Phosphatase 70 (45-117) U/L Lactate Dehydrogenase (87-241) U/L Troponin I < 0.015 (0-0.045) ng/ml NT-Pro-B Natriuret Pep 4292 H (0-1800) pg/ml Total Protein 4.9 L (6.4-8.2) gm/dl Albumin 1.9 L (3.4-5.0) gm/dl Globulin 3.0 (2.5-4.0) gm/dl Albumin/Globulin Ratio 0.6 L (0.9-2) Urine Color Urine Appearance (Clear) Urine pH (4.5-7.5) Ur Specific [place] (1.000-1.030) Urine Protein (Negative) Urine Glucose (UA) (Negative) Urine Ketones (Negative) Urine Blood (Negative) Urine Nitrite (Negative) Urine Bilirubin (Negative) Urine Urobilinogen (Negative) Ur Leukocyte Esterase (Negative) Urine WBC (Auto) (0-5) /hpf Urine RBC (Auto) (0-4) /hpf U Hyaline Cast (Auto) (0-5) /lpf U Epithel Cells (Auto) (0-5) /lpf Urine Bacteria (Auto) (Negative) COVID-19 Eval Order SARS-CoV-2, RNA, NAAT (NEGATIVE) Blood Type Antibody Screen Crossmatch 09/01/20 09/01/20 09/01/20 Range/Units 21:49 21:51 21:51 WBC (4.8-10.8) K/uL RBC (4.7-6.1) M/uL Hgb (14.0-18.0) g/dL Hct (42-52) % MCV (80-100) fL MCH (25-34) pg MCHC (32-36) g/dL RDW Std Deviation (36.4-46.3) fL RDW Coeff of Sheri (11.5-14.5) % Plt Count (130-400) K/uL MPV (7.4-10.4) fL Absolute Nucleated RBC (0-0) K/uL Nucleated RBC % (auto) % Neutrophils % (Manual) % Lymphocytes % (Manual) % Monocytes % (Manual) % Metamyelocytes % (Man) % Myelocytes % (Man) % Neutrophils # (Manual) (1.4-6.5) K/uL Total Absolute Neuts (1.4-6.5) K/uL Lymphocytes # (Manual) (1.2-3.4) K/uL Total Abs Lymphocytes (1.2-3.4) K/uL Monocytes # (Manual) (0.11-0.59) K/uL Metamyelocytes # (Man) (0-0) K/uL Myelocytes # (Manual) (0-0) K/uL Polychromasia PT INR APTT PTT Ratio Sodium (136-145) mmol/L Potassium (3.5-5.1) mmol/L Chloride (98-107) mmol/L Carbon Dioxide (21-32) mmol/L Anion Gap (3-11) BUN (7-18) mg/dl Creatinine (0.6-1.4) mg/dl Est Cr Clr Drug Dosing ml/min Est GFR ( Amer) Est GFR (Non-Af Amer) BUN/Creatinine Ratio (10-20) Glucose (70-99) mg/dl Lactate 7.4 H* (0.4-2.0) mmol/L Uric Acid (2.6-7.2) mg/dl Calcium (8.5-10.1) mg/dl Phosphorus (2.5-4.9) mg/dl Total Bilirubin (0.2-1) mg/dl AST (15-37) U/L ALT (12-78) U/L Alkaline Phosphatase (45-117) U/L Lactate Dehydrogenase 249 H (87-241) U/L Troponin I (0-0.045) ng/ml NT-Pro-B Natriuret Pep (0-1800) pg/ml Total Protein (6.4-8.2) gm/dl Albumin (3.4-5.0) gm/dl Globulin (2.5-4.0) gm/dl Albumin/Globulin Ratio (0.9-2) Urine Color Yellow Urine Appearance Cloudy A (Clear) Urine pH 5.0 (4.5-7.5) Ur Specific [place] 1.018 (1.000-1.030) Urine Protein Negative (Negative) Urine Glucose (UA) Negative (Negative) Urine Ketones Trace H (Negative) Urine Blood Negative (Negative) Urine Nitrite Negative (Negative) Urine Bilirubin Negative (Negative) Urine Urobilinogen Negative (Negative) Ur Leukocyte Esterase Trace H (Negative) Urine WBC (Auto) 1-5 (0-5) /hpf Urine RBC (Auto) 0-4 (0-4) /hpf U Hyaline Cast (Auto) >30 H (0-5) /lpf U Epithel Cells (Auto) 20-30 H (0-5) /lpf Urine Bacteria (Auto) Negative (Negative) COVID-19 Eval Order SARS-CoV-2, RNA, NAAT (NEGATIVE) Blood Type Antibody Screen Crossmatch 09/01/20 09/01/20 09/02/20 Range/Units 22:33 22:55 01:16 WBC (4.8-10.8) K/uL RBC (4.7-6.1) M/uL Hgb (14.0-18.0) g/dL Hct (42-52) % MCV (80-100) fL MCH (25-34) pg MCHC (32-36) g/dL RDW Std Deviation (36.4-46.3) fL RDW Coeff of Sheri (11.5-14.5) % Plt Count (130-400) K/uL MPV (7.4-10.4) fL Absolute Nucleated RBC (0-0) K/uL Nucleated RBC % (auto) % Neutrophils % (Manual) % Lymphocytes % (Manual) % Monocytes % (Manual) % Metamyelocytes % (Man) % Myelocytes % (Man) % Neutrophils # (Manual) (1.4-6.5) K/uL Total Absolute Neuts (1.4-6.5) K/uL Lymphocytes # (Manual) (1.2-3.4) K/uL Total Abs Lymphocytes (1.2-3.4) K/uL Monocytes # (Manual) (0.11-0.59) K/uL Metamyelocytes # (Man) (0-0) K/uL Myelocytes # (Manual) (0-0) K/uL Polychromasia PT 11.7 INR 1.1 APTT 21.0 PTT Ratio 0.8 Sodium (136-145) mmol/L Potassium (3.5-5.1) mmol/L Chloride (98-107) mmol/L Carbon Dioxide (21-32) mmol/L Anion Gap (3-11) BUN (7-18) mg/dl Creatinine (0.6-1.4) mg/dl Est Cr Clr Drug Dosing ml/min Est GFR ( Amer) Est GFR (Non-Af Amer) BUN/Creatinine Ratio (10-20) Glucose (70-99) mg/dl Lactate 4.8 H* (0.4-2.0) mmol/L Uric Acid (2.6-7.2) mg/dl Calcium (8.5-10.1) mg/dl Phosphorus (2.5-4.9) mg/dl Total Bilirubin (0.2-1) mg/dl AST (15-37) U/L ALT (12-78) U/L Alkaline Phosphatase (45-117) U/L Lactate Dehydrogenase (87-241) U/L Troponin I (0-0.045) ng/ml NT-Pro-B Natriuret Pep (0-1800) pg/ml Total Protein (6.4-8.2) gm/dl Albumin (3.4-5.0) gm/dl Globulin (2.5-4.0) gm/dl Albumin/Globulin Ratio (0.9-2) Urine Color Urine Appearance (Clear) Urine pH (4.5-7.5) Ur Specific [place] (1.000-1.030) Urine Protein (Negative) Urine Glucose (UA) (Negative) Urine Ketones (Negative) Urine Blood (Negative) Urine Nitrite (Negative) Urine Bilirubin (Negative) Urine Urobilinogen (Negative) Ur Leukocyte Esterase (Negative) Urine WBC (Auto) (0-5) /hpf Urine RBC (Auto) (0-4) /hpf U Hyaline Cast (Auto) (0-5) /lpf U Epithel Cells (Auto) (0-5) /lpf Urine Bacteria (Auto) (Negative) COVID-19 Eval Order SARS-CoV-2, RNA, NAAT (NEGATIVE) Blood Type A Positive Antibody Screen NEGATIVE Crossmatch See Detail 09/02/20 09/02/20 Range/Units 01:20 01:20 WBC (4.8-10.8) K/uL RBC (4.7-6.1) M/uL Hgb (14.0-18.0) g/dL Hct (42-52) % MCV (80-100) fL MCH (25-34) pg MCHC (32-36) g/dL RDW Std Deviation (36.4-46.3) fL RDW Coeff of Sheri (11.5-14.5) % Plt Count (130-400) K/uL MPV (7.4-10.4) fL Absolute Nucleated RBC (0-0) K/uL Nucleated RBC % (auto) % Neutrophils % (Manual) % Lymphocytes % (Manual) % Monocytes % (Manual) % Metamyelocytes % (Man) % Myelocytes % (Man) % Neutrophils # (Manual) (1.4-6.5) K/uL Total Absolute Neuts (1.4-6.5) K/uL Lymphocytes # (Manual) (1.2-3.4) K/uL Total Abs Lymphocytes (1.2-3.4) K/uL Monocytes # (Manual) (0.11-0.59) K/uL Metamyelocytes # (Man) (0-0) K/uL Myelocytes # (Manual) (0-0) K/uL Polychromasia PT INR APTT PTT Ratio Sodium (136-145) mmol/L Potassium (3.5-5.1) mmol/L Chloride (98-107) mmol/L Carbon Dioxide (21-32) mmol/L Anion Gap (3-11) BUN (7-18) mg/dl Creatinine (0.6-1.4) mg/dl Est Cr Clr Drug Dosing ml/min Est GFR ( Amer) Est GFR (Non-Af Amer) BUN/Creatinine Ratio (10-20) Glucose (70-99) mg/dl Lactate (0.4-2.0) mmol/L Uric Acid (2.6-7.2) mg/dl Calcium (8.5-10.1) mg/dl Phosphorus (2.5-4.9) mg/dl Total Bilirubin (0.2-1) mg/dl AST (15-37) U/L ALT (12-78) U/L Alkaline Phosphatase (45-117) U/L Lactate Dehydrogenase (87-241) U/L Troponin I (0-0.045) ng/ml NT-Pro-B Natriuret Pep (0-1800) pg/ml Total Protein (6.4-8.2) gm/dl Albumin (3.4-5.0) gm/dl Globulin (2.5-4.0) gm/dl Albumin/Globulin Ratio (0.9-2) Urine Color Urine Appearance (Clear) Urine pH (4.5-7.5) Ur Specific [place] (1.000-1.030) Urine Protein (Negative) Urine Glucose (UA) (Negative) Urine Ketones (Negative) Urine Blood (Negative) Urine Nitrite (Negative) Urine Bilirubin (Negative) Urine Urobilinogen (Negative) Ur Leukocyte Esterase (Negative) Urine WBC (Auto) (0-5) /hpf Urine RBC (Auto) (0-4) /hpf U Hyaline Cast (Auto) (0-5) /lpf U Epithel Cells (Auto) (0-5) /lpf Urine Bacteria (Auto) (Negative) COVID-19 [facility] SARS-CoV-2, RNA, NAAT NEGATIVE (NEGATIVE) Blood Type Antibody Screen Crossmatch Diagnostic Findings CT Head: per STAT-rad - No acute intracranial hemorrhage, extra-axial fluid collection or mass-effect. There is age-related generalized cerebral volume loss and presumed chronic microvascular ischemic changes in the supratentorial white matter. CT Neck: Per STAT-rad - There is a large ulcerated soft tissue mass centered within the right parotid gland and extending caudally along the right SCM muscle. Metallic artifact from the probable embolization material is visualized layne the posterior margin of the right mandible. There is right cervical chain LAD. The airway is patent. No underlying osseous invasion is visualized. Nodular thickening concerning for neoplastic involvement is visualized within the posterior and medial margins of the left pleural space which is only partially included int he field of view. Biapical lung nodules are partially i ncluded in the field of view suspicious for pulmonary mets. Moderate amount of debris is visualized within the esophagus. Prominent arthroscopic calcification of the aortic arch and to a lesser extent the arch vessels. CT Abd/Pelvis - Per STAT-rad - No acute findings within the abdomen or pelvis. Left pelural effusion with pleural thickening which may indicate a malignant pleural effusion. Numerous nodules are visualized within both lung bases suspicious for metastases. Extensive atherosclerosis of the aorta, iliac, visceral branch vessels. Lobulated cystic structure right hepatic dome with additional subcentimeter low density lesions in both the right and left hepatic lobe which are too small to characterize. Subcentimeter low density lesions also in thespleen. ?cysts, mets no excluded. Code Status & VTE Plan VTE Prophylaxis Plan VTE Prophylaxis will be ordered: Yes PG Care Time/CCT Total # of Minutes Spent Total Time Spent with Patient: Total time spent is greater than 50% in coordination of care (as documented) at patient's floor/unit and/or counseling patient: Coding Level of Care Code 29879 Initial Inpt Care Lvl 3 Diagnoses Anemia due to acute blood loss D62 Neoplasm of neck D49.89 Dementia F03.90 Dementia type: unspecified type Dementia behavioral disturbance: without behavioral disturbance Dyslipidemia E78.5 Hypertension I10 Hypertension type: essential hypertension Atrial fibrillation I48.20 Atrial fibrillation type: unspecified chronic BRINDA (acute kidney injury) N17.9 Leukocytosis D72.829 Leukocytosis type: unspecified (1) Dementia Dementia type: unspecified type Dementia behavioral disturbance: without behavioral disturbance Qualified Code(s): F03.90 - Unspecified dementia without behavioral disturbance (2) Hypertension Hypertension type: essential hypertension Qualified Code(s): I10 - Essential (primary) hypertension (3) Atrial fibrillation Atrial fibrillation type: unspecified chronic Qualified Code(s): I48.20 - Chronic atrial fibrillation, unspecified (4) Leukocytosis Leukocytosis type: unspecified Qualified Code(s): D72.829 - Elevated white blood cell count, unspecified
[2020-09-02] MEDS ORDERED: VANCOMYCIN HCL 1,000 MG in SODIUM CHLORIDE 0.9% 250 ML IV SCH (02:33)
[2020-09-02] MEDS ORDERED: ALBUTEROL HFA 8 GM INHALER INH PRN (02:33)
[2020-09-02] MEDS ORDERED: ACETAMINOPHEN 325 MG TAB PO PRN (02:33)
[2020-09-02] MEDS ORDERED: SODIUM CHLORIDE 0.9% 250 ML IV PRN (02:33)
[2020-09-02] MEDS ORDERED: ONDANSETRON INJ 2 MG/ML 2 ML VIAL IV PRN ×2 (02:33)
[2020-09-02] MEDS: PANTOprazole 40 MG in DEXTROSE 5% 100 ML IV SCH ×5 (03:24→21:03)
--- NOTE | 2020-09-02 07:36 | Hospitalist Progress Note ---
Date of Service September 02, 2020 Assessment & Plan (1) Anemia due to acute blood loss: Patient with normochromic, normocytic anemia with Hgb=6.2, Hct=19.2. He is not currently on any blood thinners. Concern for UGIB given complaint of abdominal pain, nausea as well as epigastric discomfort on exam. He is hemodynamically stable at present. 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 The patient has been in and out of hospitals over the last few weeks. 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 This mass began bleeding a few weeks ago during a PET scan. He was seen in the ER at [facility] and was sent to [facility] in [place]. They were told that the bleeding in the tumor was from an arterial source. The vessel was embolized and the patient was sent home. He has not had complete staging as of yet. Imaging performed today concerning for pulmonary metastases, possible malignant effusion as well as possible metastases to liver and spleen. This pt has not yet established care with Heme-Onc at [facility] and given his illness currently will liknanette not make his appointment next week, the family is open to seeing Dr Voss here and are just looking for some striaght answers regarding treatment. I am concened that as he continues to accumulate medical issues his functional decline and reduced performance status will not be in his favor to treat. Tumor is not currently bleeding. Does not appear to be invading vessels or osseous structures on imaging (3) Dementia: Patient with mild dementia -Continue Aricept (4) Dyslipidemia: Chronic. Stable -Continue Atorvastatin (5) Hypertension: Blood pressure stable -Hold Metoprolol in setting of acute bleed -Continue to monitor (6) Atrial fibrillation: Patient with pacer in place. Currently not on anticoagulation therapy given recent bleeding from tumor -Holding Metoprolol and Diltiazem for now in setting of active bleeding -Continue to monitor (7) BRINDA (acute kidney injury): Elevated BUN and Cr. Uncertain baseline. BUN elevation maybe from ugi bleed, continue hydration (8) Leukocytosis: WBC=38.6 on presentiaton - Neutrophil predominant. Slight elevation in myelocytes/metamyelocytes as well. ?reactive in setting of acute stress, underlying malignancy, ?infection -Check peripheral smear -Follow cultures -Empiric antibiotic coverage with Vancomycin and Cefepime DVT NO chemoppx given concern for acute bleed, SCDs Code - Full per discussion with daughter Dispo - Admit to PCU POC - Daughter - Shyanne - [phone]. Updated on patient's status and care plan at time of admission. Admission and Anticipated Discharge Date Admission Date: September 02, 2020 Subjective pt is in significant pain and appears painful despite his transfusion, scheduled for EGD 09/03/20. large fungating draining right periauricular mass Review of Systems Review of Systems: Mild distress and fatigue c/o headache and neck pain does have speech or swallowing issues no chest pain, pressure or palpitations no shortness of breath, cough or wheezes no abdominal pain, nausea or vomiting, diarrhea or constipation no dysuria, hematuria or frequency significant LE swelling no back pain, CVA tenderness or radicular pain no bruising, bleeding or rashes no focal signs of weakness or numbness or altered sensation no complaints of anxiety or depression.. Physical Exam Physical Exam: The patient appeared in pain pale and weak Vital signs as documented. Head exam is normocephalic atraumatic no scleral icterus Neck is with massive fungating neck mass with associated facial droop Lungs are clear to auscultation, no focal loss of breath sounds Cardiac exam, Rhythm is tachycardic and regular.. No murmurs, rubs or gallops. Abdominal exam reveals normal bowel sounds, soft non tender, no masses Extremities are edematous bilaterally and both pedal pulses are present Neurologic exam is alert and oriented, no focal loss of strength or sensation Skin is without bruises or rashes Psychologically is without concerns for anxiety or depression. Results & Data Results & Data ([facility]) Vital Signs (Past 12 Hours) Vital Signs Temp Pulse Pulse Resp BP BP Pulse Ox 09/02/20 07:13 97.7 F 86 22 135/84 95 09/02/20 06:03 97.5 F L 88 24 125/60 98 09/02/20 05:20 97.5 F L 80 24 125/75 97 09/02/20 04:50 97.9 F 86 24 134/80 96 09/02/20 04:20 97.5 F L 84 22 138/85 98 09/02/20 03:50 97.7 F 82 22 142/78 H 98 09/02/20 03:35 97.5 F L 86 22 139/81 99 09/02/20 03:18 97.5 F L 91 H 138/84 100 09/02/20 02:51 97.5 F L 91 H 138/84 100 09/02/20 02:16 93 H 18 121/63 97 09/02/20 02:01 85 14 118/66 100 09/02/20 02:00 89 17 96 09/02/20 01:53 95 H 13 100 09/02/20 01:52 89 17 110/51 L 99 09/02/20 01:31 94 H 16 138/76 100 09/02/20 01:30 86 16 100 09/02/20 01:16 91 H 18 116/70 97 09/02/20 01:01 82 18 138/73 95 09/02/20 01:00 84 19 100 09/02/20 00:47 89 14 94 09/02/20 00:46 90 21 145/93 H 97 09/02/20 00:31 88 19 109/59 L 98 09/02/20 00:19 97.7 F 90 16 138/55 L 96 09/02/20 00:03 89 17 138/55 L 98 09/02/20 00:00 82 18 99 09/01/20 23:50 88 19 09/01/20 23:00 85 17 120/63 85 L 09/01/20 22:30 91 H 19 151/67 H 98 09/01/20 22:00 76 14 146/70 H 99 09/01/20 21:00 98 H 19 131/56 L 96 09/01/20 20:57 94 09/01/20 20:48 96 H 23 136/70 95 09/01/20 20:25 97.5 F L 89 18 141/45 H 98 PG Care Time/CCT Total # of Minutes Spent Total Time Spent with Patient: Total time spent is greater than 50% in coordination of care (as documented) at patient's floor/unit and/or counseling patient: Coding Level of Care Code 71220 Subseq Hosp Care Lvl 3 Diagnoses Anemia due to acute blood loss D62 Neoplasm of neck D49.89 Dementia F03.90 Dementia behavioral disturbance: without behavioral disturbance Dementia type: unspecified type Dyslipidemia E78.5 Hypertension I10 Hypertension type: essential hypertension Atrial fibrillation I48.20 Atrial fibrillation type: unspecified chronic BRINDA (acute kidney injury) N17.9 Leukocytosis D72.829 Leukocytosis type: unspecified (1) Atrial fibrillation Atrial fibrillation type: unspecified chronic Qualified Code(s): I48.20 - Chronic atrial fibrillation, unspecified (2) Dementia Dementia behavioral disturbance: without behavioral disturbance Dementia type: unspecified type Qualified Code(s): F03.90 - Unspecified dementia without behavioral disturbance (3) Leukocytosis Leukocytosis type: unspecified Qualified Code(s): D72.829 - Elevated white blood cell count, unspecified (4) Hypertension Hypertension type: essential hypertension Qualified Code(s): I10 - Essential (primary) hypertension
[2020-09-02] MEDS ORDERED: PNEUMOCOCCAL ADMINISTRATION CHARGE ONE (08:00)
[2020-09-02] MEDS ORDERED: PNEUMOCOCCAL POLYSACCHARIDES 25 MCG/0.5 ML VIAL/SYR IM ONE (08:00)
[2020-09-02] MEDS: CEFEPIME 2,000 MG in SYRINGE 0 ML IV SCH ×2 (08:09→19:57)
[2020-09-02] MEDS: DONEPEZIL HCL 5 MG TAB PO SCH (08:13)
[2020-09-02 08:38] LABS: Creatinine Clr Calc Pharmacy 29.5 ml/min; Est GFR (African American) 26.8; Est GFR (Non-African American) 23.1; Magnesium 2.4 mg/dl (1.8-2.4)
[2020-09-02] MEDS ORDERED: FUROSEMIDE 40 MG TAB PO SCH (09:00)
[2020-09-02] MEDS ORDERED: dilTIAZem HCL 240 MG CAPCR PO SCH (09:00)
[2020-09-02] MEDS ORDERED: PANTOprazole 40 MG in SYRINGE 0 ML IV SCH (09:00)
--- NOTE | 2020-09-02 09:01 | XRay Report ---
CHEST AND ABDOMEN 2 VIEWS HISTORY: Shortness of breath.Generalized abdominal pain. COMPARISON: Chest 01/08/2006. FINDINGS: No pneumothorax. There is a small left pleural effusion. The heart is enlarged. There is a left-sided pacemaker. There is diffuse interstitial/vascular thickening consistent with mild pulmonar y edema. This has progressed in the interval. There may be a few scattered subcentimeter pulmonary no dules. The largest in the right lung apex measures 8 mm. No pneumoperitoneum. No pneumatosis. Prior c holecystectomy. No renal or ureteral calculi. Multiple borderline dilated gas-filled loops of small b owel within the abdomen. There is gas and stool seen throughout the colon. This could represent a low -grade partial small bowel obstruction versus an ileus. Mild gaseous distention of the stomach. IMPRESSION: 1. Cardiomegaly with mild interstitial pulmonary edema and a small left pleural effusion. 2. Suggestion of a few scattered pulmonary nodules with the largest in the right lung apex measuring 8 mm. 3. A few mildly dilated gas-filled loops of small bowel seen within the abdomen. There is also gas an d stool-filled colon. Therefore, this could represent an ileus or low-grade partial small bowel obstr uction. ACT 112: Negative or not required by law. Electronically signed by: Chuck Reed M.D. 09/02/2020 9:00 AM
[2020-09-02 09:03] LABS: Hematocrit (blood only) 24.8 % (42-52); Hemoglobin 8.3 g/dL (14.0-18.0); Mean Corpuscular Hemoglobin 29.1 pg (25-34); Mean Corpuscular Hgb Conc 33.5 g/dL (32-36); Mean Platelet Volume 9.6 fL (7.4-10.4); Nucleated RBC # (auto) 1.08 K/uL (0-0); Nucleated RBC % (auto) 3.4 %; Platelet Count 228 K/uL (130-400); RDW Coefficient of Variation 14.8 % (11.5-14.5); RDW Standard Deviation 45.7 fL (36.4-46.3); Red Blood Count 2.85 M/uL (4.7-6.1); White Blood Count 31.33 K/uL (4.8-10.8)
[2020-09-02] MEDS ORDERED: oxyCODONE HCL IR 5 MG TAB (IMMEDIATE RELEASE) PO PRN (09:11)
[2020-09-02 09:19] LABS: Basophils # (auto) 0.07 K/uL (0-0.2); Basophils % (auto) 0.2 %; Immature Granulocytes # (auto) 0.96 K/uL (0.00-0.02); Immature Granulocytes % (auto) 3.1 %; Lymphocytes # (auto) 0.97 K/uL (1.2-3.4); Lymphocytes % (auto) 3.1 %; Monocytes # (auto) 1.64 K/uL (0.11-0.59); Monocytes % (auto) 5.2 %; Neutrophils # (auto) 27.69 K/uL (1.4-6.5); Neutrophils % (auto) 88.4 %; Polychromasia 1+
--- NOTE | 2020-09-02 09:36 | Pharmacy Report ---
Pharmacy Abx Initial Consult - Date of Service September 02, 2020 - Pharmacy Dosing Scope Date of Consult: 09/02 Consultation requested by: Dr. Roman Pharmacy is consulted to initiate Vancomycin dosing therapy, order appropriate labs and adjust drug dose/frequency. - Subjective The patient is a 80 year old M admitted on 09/02/20 01:48. - Objective Height: 5 ft 8 in Weight: 123.1 kg Vital Signs (Past 12hrs): Vital Signs Temp Pulse Pulse Resp BP BP Pulse Ox 09/02/20 07:13 36.5 C 86 22 135/84 95 09/02/20 06:03 36.4 C L 88 24 125/60 98 09/02/20 05:20 36.4 C L 80 24 125/75 97 09/02/20 04:50 36.6 C 86 24 134/80 96 09/02/20 04:20 36.4 C L 84 22 138/85 98 09/02/20 03:50 36.5 C 82 22 142/78 H 98 09/02/20 03:35 36.4 C L 86 22 139/81 99 09/02/20 03:18 36.4 C L 91 H 138/84 100 09/02/20 02:51 36.4 C L 91 H 138/84 100 09/02/20 02:16 93 H 18 121/63 97 09/02/20 02:01 85 14 118/66 100 09/02/20 02:00 89 17 96 09/02/20 01:53 95 H 13 100 09/02/20 01:52 89 17 110/51 L 99 09/02/20 01:31 94 H 16 138/76 100 09/02/20 01:30 86 16 100 09/02/20 01:16 91 H 18 116/70 97 09/02/20 01:01 82 18 138/73 95 09/02/20 01:00 84 19 100 09/02/20 00:47 89 14 94 09/02/20 00:46 90 21 145/93 H 97 09/02/20 00:31 88 19 109/59 L 98 09/02/20 00:19 36.5 C 90 16 138/55 L 96 09/02/20 00:03 89 17 138/55 L 98 09/02/20 00:00 82 18 99 09/01/20 23:50 88 19 09/01/20 23:00 85 17 120/63 85 L 09/01/20 22:30 91 H 19 151/67 H 98 09/01/20 22:00 76 14 146/70 H 99 Lab Results (24hrs): Laboratory Tests (24 Hours) 09/02/20 09/02/20 09/02/20 08:32 07:35 07:35 WBC 31.33 H* Neut # (Auto) 27.69 H Creatinine Cancelled Est Cr Clr Drug Dosing Cancelled Procalcitonin 3.62 H 09/02/20 09/02/20 09/01/20 07:35 07:35 21:49 WBC Cancelled 38.61 H* Neut # (Auto) Cancelled Creatinine 2.51 H Est Cr Clr Drug Dosing 29.5 Procalcitonin 09/01/20 21:49 WBC Neut # (Auto) Creatinine 2.37 H Est Cr Clr Drug Dosing 31.2 Procalcitonin Micro Results: 09/01/20 22:33 Aerobic Blood Culture - Pending Blood Anaerobic Blood Culture - Pending 09/01/20 22:33 Aerobic Blood Culture - Pending Blood Anaerobic Blood Culture - Pending - Risk Factors for Resistance * Immunocompromised ) - Assessment & Plan Assessment 80 year old M admitted with anemia d/t acute blood lose, concern for UGIB, leukocytosis on admission 38.6, patient with neoplasm of neck with imaging concerning for pulmonary mets and possible mets to liver and spleen. Leukocytosis may be related to acute stress, however beginning empiric vancomycin/cefepime, until further work up completed, blood cultures pending Plan Vancomycin IV * Estimated PK Parameters: Vd 0.6 L/kg, Dillan 0.028 hr-1, t1/2 24 hr * Loading dose: 2500 mg (20mg/kg) * Maintenance dose- will order random level for this evening ~18 hours from previous dose as SCr has held steady/increased slightly from repeat, uncertain of direction of renal function * Goal trough level for 15-20 mcg/mL * Random level ordered for 09/02 @ 1999 * A less than traditional dose and/or extended dosing interval has/have been selected due to likelihood of drug accumulation in obese patient/patient with h/o CKD. Cefepime currently dosed appropriately for renal function, should he have further decline, dose will need reduced to 2 gm every 24 hours. Pharmacy will continue to follow and will adjust dose/frequency as necessary. Thank you.
[2020-09-02] MEDS: MoRPHine SULFATE 2 MG/ML CARP IV PRN ×5 (09:37→22:53)
--- NOTE | 2020-09-02 09:41 | CT Scan Report ---
HEAD CT NONCONTRAST CT DOSE: HISTORY: Headache. Neck mass. TECHNIQUE: Multiaxial CT images of the head were performed without the use of intravenous contrast. A utomated exposure control was utilized for this study. A dose lowering technique was utilized adheri ng to the principles of ALARA. Comparison: None. Findings: There is a large right-sided neck mass which is partially imaged on this study. This appear s to extend into the external auditory canal. This mass measures up to 10 cm in size. The right masto id air cells are completely opacified as well as the right middle ear cavity. There is mild mucosal t hickening within the right maxillary sinus. The left mastoid air cells are clear. The calvarium and s kull base are intact. There is no mass, hematoma, midline shift, acute infarct. White matter hypodens ity is nonspecific but suggestive of microvascular ischemic change. The ventricles and sulci demonstr ate mild age-related involutional changes. Impression: 1. No acute intracranial abnormality. 2. Please refer to the same day neck CT for further evaluation of the large right neck mass. This karan ears to extend into the external auditory canal and likely accounts for the opacified right middle ea r cavity and mastoid air cells. ACT 112: Negative or not required by law. Electronically signed by: Chuck Reed M.D. 09/02/2020 9:39 AM
--- NOTE | 2020-09-02 09:47 | CT Scan Report ---
CT soft tissue neck wo con HISTORY: Right neck mass TECHNIQUE: Multiaxial CT images of the neck were performed without contrast. COMPARISON STUDY: None. FINDINGS: Multiple subcentimeter nodules are seen within the lung apices with the largest on the righ t measuring 8 mm. This is consistent with metastatic disease. There is also nodular pleural thickenin g within the left hemithorax consistent with metastatic disease. Left-sided pacemaker is noted. Mild mucosal thickening within the right maxillary sinus. Extensive calcified plaque within the bilateral carotid bifurcations. No left-sided cervical lymphadenopathy. There is a large ulcerating right neck mass which extends through the skin surface. There is associated right cervical lymphadenopathy with invasion into the right sternocleidomastoid muscle. This neck mass measures up to 10 cm in size. Ther e are vascular collaterals along the deep surface of the neck mass. This mass invades into the inferi or right ear lobe. There is opacification of the right external auditory canal which could be due to mass effect from the right neck mass or possibly tumor extension. This likely accounts for the opacif ied right middle ear cavity and mastoid air cells. This large right neck mass is centered at the righ t parotid gland. There is mild left deviation of the airway. However, the airway appears patent. Prev ertebral soft tissues and the epiglottis are normal in thickness. IMPRESSION: 1. A large ulcerated soft tissue mass centered within the right parotid gland with associated right c ervical lymphadenopathy as described above. 2. Multiple subcentimeter pulmonary nodules and nodular thickening of the left pleura consistent with metastatic disease. ACT 112: Negative or not required by law. Electronically signed by: Chuck Reed M.D. 09/02/2020 9:45 AM
--- NOTE | 2020-09-02 09:54 | CT Scan Report ---
CT OF THE ABDOMEN AND PELVIS WITHOUT CONTRAST CLINICAL HISTORY: Abdominal pain and melena. Evaluate for perforation. COMPARISON STUDY: Abdominal series September 01, 2020. TECHNIQUE: Axial images of the abdomen and pelvis were obtained without IV contrast. Images were revi ewed in the axial, sagittal, and coronal planes. Automated exposure control was utilized for the makenzie dy. A dose lowering technique was utilized adhering to the principles of ALARA. FINDINGS: Visualized portions of the lower chest reveal moderate cardiomegaly. Pacer leads are partia lly imaged. There is a small left pleural effusion. Extensive pleural nodularity within each lower he mithorax is noted. There are multiple pulmonary nodules within the lower lungs that measure up to 1.2 cm. Note is made of right cardiophrenic angle nodules. These may reflect enlarged lymph nodes or imp lants. Evaluation of the abdomen and pelvis is suboptimal on this unenhanced examination. No pneumato sis, free air or portal venous gas is present. There are several indeterminate hypodense hepatic lesi ons that measure up to 3.2 cm. Hypodense splenic lesions are likely benign. The adrenal glands, kidne ys and pancreas are unremarkable with exception of a left renal lesion. This is suboptimally assessed on this unenhanced exam but measures near water attenuation. A cyst is favored. Gallbladder surgical ly absent. There is no evidence for a bowel obstruction. There is a moderate amount of poorly formed stool within the colon. The appendix is normal. No pelvic lymphadenopathy is noted. No suspicious oss eous lesions are noted. There is no ascites. A few nodules adjacent to the spleen are noted. IMPRESSION: 1. No acute process within the abdomen or pelvis. No bowel obstruction. Moderate amount of poorly for med stool within the colon. Normal appendix. 2. Small left pleural effusion with extensive pleural nodularity within visualized portions of the lo wer chest. 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 Numerous pulmonary nodules suggestive of pulmonary metastases. 3. Several indeterminate hypodense hepatic lesions. ACT 112: Positive. There are findings on this exam that require communication between the performing entity and the patient following Patient Test Result Information Act ([place] Act 112) guidelines. Electronically signed by: Jaun Barger M.D. 09/02/2020 9:53 AM
[2020-09-02 13:08] LABS: Hematocrit (blood only) 24.3 % (42-52); Hemoglobin 8.1 g/dL (14.0-18.0); Mean Corpuscular Hgb Conc 33.3 g/dL (32-36); Mean Corpuscular Volume 87.1 fL (80-100); Nucleated RBC # (auto) 1.08 K/uL (0-0); Nucleated RBC % (auto) 3.6 %; Platelet Count 282 K/uL (130-400); RDW Coefficient of Variation 14.8 % (11.5-14.5); RDW Standard Deviation 45.6 fL (36.4-46.3); Red Blood Count 2.79 M/uL (4.7-6.1); White Blood Count 30.03 K/uL (4.8-10.8)
--- NOTE | 2020-09-02 13:54 | Gastrointestinal Consultation ---
Date of Consultation September 02, 2020 Assessment & Plan (1) Melena: (2) GI bleed: possible PUD vs. metastatic disease of his SCC or AVM. Recs: --clear liquid diet today, NPO post midnight --EGD to further evaluate tomorrow morning --continue protonix drip --trend H/H, transfuse prn hgb <7 rest as per primary team Thank you for allowing me to participate in the care of this patient. History of Present Illness Attending Physician: Jose De Jesus Gaviria MD 80yo male with history of Atrial Fibrillation, HTN, HLP and large SCC of right neck presenting with abdominal pain and SOB as well as nausea, lightheadedness, melena. GI consulted for possible GI bleed, worsening anemia. Hgb on admission was 6.2 and noted to have melena and heme positive stools. Currently he denies hematochezia, epistaxis, hematemesis. Currently denies any abdominal pains or other issues though he was having nausea and pain prior to admission. Started on protonix drip. Of note, patient has been in and out of hospitals over the last few weeks. 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 He was seen in the ER at [facility] and was sent to [facility] in [place]. They were told that the bleeding in the tumor was from an arterial source. The vessel was embolized and the patient was sent home. The PET scan was never completed. Approximately 2 weeks ago he developed weakness and shortness of breath. He was taken to [facility] and diagnosed with a UTI as well as having his Fentanyl patch discontinued. He returned home. He was seen by his home Physical Therapist on 08/28/20 and was thought to have right sided facial droop concerning for a new CVA. He returned to [facility] for workup. He was told that he did not have a stroke but that the neck tumor was compressing the nerves and structures in his neck. He returned to [place] on 08/29/[address] Mae from [facility] to begin a plan for chemotherapy. She felt it best to start chemotherapy and immunotherapy on an outpatient basis. The family wishes to pursue their cancer treatment locally so Dr. Mae discussed the plan with Dr. Salas in [place]. They have an appointment to see Dr. Salas on 09/05/20. VSS. hgb currently 8.1. labs reviewed. Allergies Allergy/AdvReac Type Severity Reaction Status Date / Time No Known Allergies Allergy Verified 09/01/20 22:27 Home Medications Medication Instructions Recorded Confirmed Type diltiazem HCl 240 mg PO QAM 06/15/18 09/01/20 History furosemide [Lasix] 40 mg PO QAM 06/15/18 09/01/20 History potassium chloride [Klor-Con M20] 20 meq PO BID 06/15/18 09/01/20 History albuterol sulfate [Ventolin HFA] 2 puff INHALATION Q6H PRN 09/01/20 09/01/20 History artificial tears(hypromellose) 1 drp OPR TID 09/01/20 09/01/20 History atorvastatin 20 mg PO HS 09/01/20 09/01/20 History donepezil 5 mg PO QAM 09/01/20 09/01/20 History fentanyl 1 patch TRANSDERMAL [id number] 09/01/20 09/01/20 History metoprolol succinate 50 mg PO BID 09/01/20 09/01/20 History Patient History Medical History Atrial fibrillation Dementia Dyslipidemia History of pacemaker Hypertension Neoplasm of neck Surgical History History of cholecystectomy History of left knee replacement Family History Other Family history non-contributory Social History Smoking Status: Unknown if ever smoked Tobacco Type: Smokeless Tobacco (Dip or Chew) Hx Alcohol Use: Yes Alcohol type: beer Hx Substance Use: No Preferred Language: Irish Beliefs That Will Affect Care: None Current Living Situation: Spouse Feels Safe at Home: Yes Review of Systems Constitutional: no fever, no chills and no weight loss Eyes: as per Subjective / HPI Ear, Nose, Mouth, Throat: as per Subjective / HPI Respiratory: no dyspnea and no dyspnea on exertion Cardiovascular: no chest pain and no palpitations Gastrointestinal: as per Subjective / HPI Musculoskeletal: no joint pain and no swelling Integumentary: no rash and no lesions Neurologic: no numbness and no paresthesia Psychiatric: no depression and no anxiety Endocrine: no fatigue Hematologic / Lymphatic: no easy bleeding and no easy bruising Physical Exam Constitutional: WD/WN, vitals as above Eyes: EOM intact bilaterally Neck: normal visual inspection Respiratory: normal respiratory effort, lungs clear to auscultation Cardiovascular: RRR, no murmur, no edema Gastrointestinal (Abdomen): Inspection/Auscultation: abdomen normal to inspection; abdomen not distended Percussion/Palpation: abdomen soft; abdomen nontender and no hepatosplenomegaly Musculoskeletal: Extremities: no cyanosis Gait: normal gait Skin: no rashes, warm and dry Neurologic: moves all extremities Psychiatric: A+Ox3, euthymic affect Results & Data ([facility]) Vital Signs (Past 12 Hours) Vital Signs Temp Pulse Pulse Resp BP BP Pulse Ox 09/02/20 12:21 36.9 C 72 20 129/76 99 09/02/20 10:08 84 09/02/20 07:13 36.5 C 86 22 135/84 95 09/02/20 06:03 36.4 C L 88 24 125/60 98 09/02/20 05:20 36.4 C L 80 24 125/75 97 09/02/20 04:50 36.6 C 86 24 134/80 96 09/02/20 04:20 36.4 C L 84 22 138/85 98 09/02/20 03:50 36.5 C 82 22 142/78 H 98 09/02/20 03:35 36.4 C L 86 22 139/81 99 09/02/20 03:18 36.4 C L 91 H 138/84 100 09/02/20 02:51 36.4 C L 91 H 138/84 100 09/02/20 02:16 93 H 18 121/63 97 09/02/20 02:01 85 14 118/66 100 09/02/20 02:00 89 17 96 09/02/20 01:53 95 H 13 100 09/02/20 01:52 89 17 110/51 L 99 PG Care Time/CCT Total # of Minutes Spent Total Time Spent with Patient: Total time spent is greater than 50% in coordination of care (as documented) at patient's floor/unit and/or counseling patient: Coding Level of Care Code 38352 Initial Inpt Care Lvl 3 Diagnoses Melena K92.1 GI bleed K92.2
--- NOTE | 2020-09-02 17:35 | Anesthesiology Consultation ---
Date of Service September 02, 2020 Assessment & Plan (1) Encounter for pre-operative examination: Chart Review Chart Review: Patient NOT seen in Pre Admission Testing Consults Requested ENT Please assess for ability to do emergent trach in the event of airway loss during planned endoscopy for GI bleed. Additional Notes Initial assessment of airway is concerning for multiple problems, including possible difficult intubation and possible difficult ventilation with a high risk for inability to maintain airway during planned endoscopy. Would recommend having ENT assess patient for ability to provide emergent trach in the event of airway loss (not sure if this would be surgically possible in the setting of patients neck mass). Mass does not appear to be putting direct pressure on the airway, but it is preventing the patient from opening his mouth normally and from extending his neck. In addition, the patient is morbidly obese with a short thick neck before the development of his current mass. Will await ENT assessment. History Height/Weight Height: 5 ft 8 in Weight: 123.1 kg Allergies Allergy/AdvReac Type Severity Reaction Status Date / Time No Known Allergies Allergy Verified 09/01/20 22:27 Medications Home Medications Medication Instructions Recorded Confirmed Last Taken diltiazem HCl 240 mg PO QAM 06/15/18 09/01/20 Unknown furosemide [Lasix] 40 mg PO QAM 06/15/18 09/01/20 Unknown potassium chloride [Klor-Con M20] 20 meq PO BID 06/15/18 09/01/20 Unknown albuterol sulfate [Ventolin HFA] 2 puff INHALATION Q6H PRN 09/01/20 09/01/20 Unknown artificial tears(hypromellose) 1 drp OPR TID 09/01/20 09/01/20 Unknown atorvastatin 20 mg PO HS 09/01/20 09/01/20 Unknown donepezil 5 mg PO QAM 09/01/20 09/01/20 Unknown fentanyl 1 patch TRANSDERMAL [id number] 09/01/20 09/01/20 Unknown metoprolol succinate 50 mg PO BID 09/01/20 09/01/20 Unknown Active Medications Generic Name Dose Route Start Last Admin Trade Name Freq PRN Reason Stop Dose Admin Acetaminophen 650 mg 09/02/20 02:33 09/02/20 08:24 Acetaminophen 325 Mg Tab PO 10/02/20 02:32 650 mg Q4H PRN Administration Pain or Fever Donepezil HCl 5 mg 09/02/20 09:00 09/02/20 08:13 Donepezil Hcl 5 Mg Tab PO 10/02/20 08:59 5 mg QAM MELISA Administration Furosemide 40 mg 09/02/20 09:00 09/02/20 08:14 Furosemide 40 Mg Tab PO 10/02/20 08:59 40 mg QAM MELISA Administration Pantoprazole Sodium 40 mg/ 100 mls @ 20 mls/hr 09/02/20 02:30 09/02/20 16:27 Dextrose IV 10/02/20 02:29 8 mg/hr Q5H MELISA 20 mls/hr Administration 8 MG/HR Cefepime HCl 2,000 mg/ Syringe 20 mls @ 5 mls/min 09/02/20 10:00 09/02/20 08:09 IV 09/04/20 09:59 5 mls/min Q12H MELISA Administration Protocol Morphine Sulfate 2 mg 09/02/20 09:11 09/02/20 17:11 Morphine Sulfate 2 Mg/Ml Carp IV 09/16/20 09:10 2 mg Q4 PRN Administration Pain Past Medical History Medical History Atrial fibrillation Dementia Dyslipidemia History of pacemaker Hypertension Neoplasm of neck Past Family History Family History Other Family history non-contributory Past Surgical History Surgical History History of cholecystectomy History of left knee replacement Social History Smoking Status: Unknown if ever smoked Hx Alcohol Use: Yes Alcohol type: beer Hx Substance Use: No Review of Systems pt c/o severe neck pain and requesting additional pain medications pt denying N/V Physical Exam Vital Signs Last Vital Signs Temp 37.0 C 09/02/20 14:57 Pulse 93 H 09/02/20 17:39 Resp 24 09/02/20 14:57 BP 108/65 09/02/20 14:57 Pulse Ox 96 09/02/20 14:57 Constitutional + morbidly obese Eyes right eye ptosis ENMT Mouth: + restricted motion of mouth and + small oral opening (2cm at most - trismus (combo of pain and mechanical per pt)) Thyromental Distance: < 3.5 Finger Breadths Mallampati Class: Other (unable to open mouth far enough to visualize mallampati) Mouth / Teeth: 1. missing teeth Neck + short neck, + thick neck and + limited neck extension Large mass covering right side of face and neck. Pt unwilling to move neck due to severe pain Respiratory normal respiratory effort, lungs clear to auscultation Cardiovascular Rate/Rhythm: + irregularly irregular Heart Sounds: no murmur Chest (Breasts) Chest: + pacemaker Neurologic Right sided facial droop Psychiatric Orientation: alert and oriented to person Testing Laboratory Results 09/02/20 12:54 09/02/20 07:35 PT 11.7 Seconds (9.0-12.0) 09/01/20 22:55 INR 1.1 (0.9-1.1) 09/01/20 22:55 APTT 21.0 Seconds (21.0-31.0) 09/01/20 22:55 Urine Color Yellow 09/01/20 21:51 Urine Appearance Cloudy (Clear) A 09/01/20 21:51 Urine pH 5.0 (4.5-7.5) 09/01/20 21:51 Ur Specific [place] 1.018 (1.000-1.030) 09/01/20 21:51 Urine Protein Negative (Negative) 09/01/20 21:51 Urine Glucose (UA) Negative (Negative) 09/01/20 21:51 Urine Ketones Trace (Negative) H 09/01/20 21:51 Urine Nitrite Negative (Negative) 09/01/20 21:51 Ur Leukocyte Esterase Trace (Negative) H 09/01/20 21:51 Urine WBC (Auto) 1-5 /hpf (0-5) 09/01/20 21:51 Urine RBC (Auto) 0-4 /hpf (0-4) 09/01/20 21:51 U Hyaline Cast (Auto) >30 /lpf (0-5) H 09/01/20 21:51 U Epithel Cells (Auto) 20-30 /lpf (0-5) H 09/01/20 21:51 Urine Bacteria (Auto) Negative (Negative) 09/01/20 21:51 Blood Type A Positive 09/01/20 22:33 Antibody Screen NEGATIVE 09/01/20 22:33 Electrocardiogram Date: 09/02/20 Findings: + AFIB @ (92) Occassional PVCs, nonspecific T wave abnormality Chest X-Ray Date: 09/02/20 1. Cardiomegaly with mild interstitial pulmonary edema and a small left pleural effusion. 2. Suggestion of a few scattered pulmonary nodules with the largest in the right lung apex measuring 8 mm. 3. A few mildly dilated gas-filled loops of small bowel seen within the abdomen. There is also gas and stool-filled colon. Therefore, this could represent an ileus or low-grade partial small bowel obstruction. Other Testing Head CT 09/02/20 Impression: 1. No acute intracranial abnormality. 2. Please refer to the same day neck CT for further evaluation of the large right neck mass. This appears to extend into the external auditory canal and likely accounts for the opacified right middle ear cavity and mastoid air cells. Neck CT 09/02/20 FINDINGS: Multiple subcentimeter nodules are seen within the lung apices with the largest on the right measuring 8 mm. This is consistent with metastatic disease. There is also nodular pleural thickening within the left hemithorax consistent with metastatic disease. Left-sided pacemaker is noted. Mild mucosal thickening within the right maxillary sinus. Extensive calcified plaque within the bilateral carotid bifurcations. No left-sided cervical lymphadenopathy. There is a large ulcerating right neck mass which extends through the skin surface. There is associated right cervical lymphadenopathy with invasion into the right sternocleidomastoid muscle. This neck mass measures up to 10 cm in size. There are vascular collaterals along the deep surface of the neck mass. This mass invades into the inferior right ear lobe. There is opacification of the right external auditory canal which could be due to mass effect from the right neck mass or possibly tumor extension. This likely accounts for the opacified right middle ear cavity and mastoid air cells. This large right neck mass is centered at the right parotid gland. There is mild left deviation of the airway. However, the airway appears patent. Prevertebral soft tissues and the epiglottis are normal in thickness. IMPRESSION: 1. A large ulcerated soft tissue mass centered within the right parotid gland with associated right cervical lymphadenopathy as described above. 2. Multiple subcentimeter pulmonary nodules and nodular thickening of the left pleura consistent with metastatic disease. Abd CT 09/02/20 FINDINGS: Visualized portions of the lower chest reveal moderate cardiomegaly. Pacer leads are partially imaged. There is a small left pleural effusion. Extensive pleural nodularity within each lower hemithorax is noted. There are multiple pulmonary nodules within the lower lungs that measure up to 1.2 cm. Note is made of right cardiophrenic angle nodules. These may reflect enlarged lymph nodes or implants. Evaluation of the abdomen and pelvis is suboptimal on this unenhanced examination. No pneumatosis, free air or portal venous gas is present. There are several indeterminate hypodense hepatic lesions that measure up to 3.2 cm. Hypodense splenic lesions are likely benign. The adrenal glands, kidneys and pancreas are unremarkable with exception of a left renal lesion. This is suboptimally assessed on this unenhanced exam but measures near water attenuation. A cyst is favored. Gallbladder surgically absent. There is no evidence for a bowel obstruction. There is a moderate amount of poorly formed stool within the colon. The appendix is normal. No pelvic lymphadenopathy is noted. No suspicious osseous lesions are noted. There is no ascites. A few nodules adjacent to the spleen are noted. IMPRESSION: 1. No acute process within the abdomen or pelvis. No bowel obstruction. Moderate amount of poorly formed stool within the colon. Normal appendix. 2. Small left pleural effusion with extensive pleural nodularity within visualized portions of the lower chest. 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 Numerous pulmonary nodules suggestive of pulmonary metastases. 3. Several indeterminate hypodense hepatic lesions.
[2020-09-02] MEDS ORDERED: ATORVASTATIN 20 MG TAB PO SCH (21:00)
--- NOTE | 2020-09-02 21:54 | Electrocardiogram Report ---
Test Reason : Blood Pressure : / mmHG Vent. Rate : 092 BPM Atrial Rate : 093 BPM P-R Int : 000 ms QRS Dur : 078 ms QT Int : 350 ms P-R-T Axes : 000 012 118 degrees QTc Int : 432 ms Atrial fibrillation with intermittent ventricular-paced complexes Nonspecific ST and T wave abnormality Abnormal ECG When compared with ECG of 26-JUN-2015 13:53, HR has increased by 15 bpm Confirmed by Charbel Castaneda ([id number]) on 09/02/2020 9:54:13 PM Referred By: REFERRED SELF Confirmed By:Charbel Castaneda
--- NOTE | 2020-09-02 22:10 | Electrocardiogram Report ---
Test Reason : Blood Pressure : / mmHG Vent. Rate : 092 BPM Atrial Rate : 416 BPM P-R Int : 000 ms QRS Dur : 082 ms QT Int : 370 ms P-R-T Axes : 000 020 150 degrees QTc Int : 457 ms Atrial fibrillation with occasional ventricular-paced complexes Nonspecific T wave abnormality Abnormal ECG When compared with ECG of 01-SEP-2020 20:32, No significant change Confirmed by Charbel Castaneda ([id number]) on 09/02/2020 10:09:48 PM Referred By: REFERRED SELF Confirmed By:Charbel Castaneda
[2020-09-03] MEDS: PANTOprazole 40 MG in DEXTROSE 5% 100 ML IV SCH ×2 (01:38→05:45)
[2020-09-03] MEDS: MoRPHine SULFATE 2 MG/ML CARP IV PRN ×2 (03:13→13:18)
[2020-09-03] MEDS: MoRPHine SULFATE 4 MG/ML 1 ML CARP\\VIAL IV PRN ×2 (05:43→18:01)
[2020-09-03] MEDS ORDERED: VANCOMYCIN HCL 1,500 MG in SODIUM CHLORIDE 0.9% 500 ML IV SCH (08:00)
[2020-09-03] MEDS ORDERED: VANCOMYCIN HCL 1,750 MG in SODIUM CHLORIDE 0.9% 500 ML IV SCH (08:00)
[2020-09-03] MEDS ORDERED: VANCOMYCIN HCL 1,750 MG in SODIUM CHLORIDE 0.9% 500 ML IV ONE (08:15)
--- NOTE | 2020-09-03 08:48 | Communication Note ---
Date of Service: September 03, 2020 GI brief note: EGD cancelled this morning due to high risk airway and relative stability of his anemia and vital signs. would need ENT as backup if we were to do an EGD per my discussion with anesthesia. Will monitor hgb for now and continue PPI (can do BID). keep NPO post midnight tonight in case for possible EGD tomorrow if needed. Keyon Taylor MD Gastroenterology
[2020-09-03] MEDS: DONEPEZIL HCL 5 MG TAB PO SCH (09:06)
[2020-09-03] MEDS: CEFEPIME 2,000 MG in SYRINGE 0 ML IV SCH (09:24)
[2020-09-03 09:37] LABS: Hematocrit (blood only) 22.1 % (42-52); Hemoglobin 7.3 g/dL (14.0-18.0); Mean Corpuscular Hemoglobin 29.1 pg (25-34); Mean Platelet Volume 8.6 fL (7.4-10.4); Nucleated RBC # (auto) 0.52 K/uL (0-0); Nucleated RBC % (auto) 2.1 %; Platelet Count 216 K/uL (130-400); RDW Coefficient of Variation 15.4 % (11.5-14.5); RDW Standard Deviation 47.4 fL (36.4-46.3); Red Blood Count 2.51 M/uL (4.7-6.1); White Blood Count 24.99 K/uL (4.8-10.8)
[2020-09-03 09:56] LABS: Basophils # (auto) 0.02 K/uL (0-0.2); Basophils % (auto) 0.1 %; Immature Granulocytes # (auto) 0.31 K/uL (0.00-0.02); Immature Granulocytes % (auto) 1.2 %; Lymphocytes # (auto) 0.89 K/uL (1.2-3.4); Lymphocytes % (auto) 3.6 %; Monocytes # (auto) 0.88 K/uL (0.11-0.59); Monocytes % (auto) 3.5 %; Neutrophils # (auto) 22.89 K/uL (1.4-6.5); Neutrophils % (auto) 91.6 %; Polychromasia 1+
[2020-09-03 10:22] LABS: Albumin Level 1.8 gm/dl (3.4-5.0); BUN Creatinine Ratio 36.5 (10-20); Bilirubin Direct 0.4 mg/dl (0-0.2); Calcium 8.1 mg/dl (8.5-10.1); Est GFR (African American) 29.8; Est GFR (Non-African American) 25.7; Potassium 3.9 mmol/L (3.5-5.1); Total Protein 5.1 gm/dl (6.4-8.2)
[2020-09-03] MEDS ORDERED: METOPROLOL TARTRATE 1 MG/ML VIAL IV PRN (11:17)
[2020-09-03] MEDS: METOPROLOL TARTRATE 1 MG/ML VIAL IV SCH ×2 (12:14→18:02)
[2020-09-03] MEDS: PANTOprazole 40 MG in SYRINGE 0 ML IV SCH ×2 (12:18→21:00)
[2020-09-03] MEDS ORDERED: HALOPERIDOL LACTATE 5 MG/ML 1 ML VIAL IV STA (13:54)
--- NOTE | 2020-09-03 14:57 | Pharmacy Report ---
Pharmacy Abx Dose Short Note - Date of Service September 03, 2020 - Assessment & Plan Assessment 80 year old M receiving VANCOMYCIN/CEFEPIME. Discussed with hospitalist, antibiotics initially ordered as empiric 48 hrs, Leukocytosis is trending down, afebrile, blood cultures, urine culture currently negative, would like antibiotics duration extended to cover for possible skin source. Indication updated to [facility]. Day # 2 of antimicrobial therapy. Plan Vancomycin * Random level last evening 20.6 mcg/ml, SCr slightly decreased today to 2.30 * Gave 1 x 1750 mg dose as patient half-life still estimating ~24 hrs, will begin maintenance dose of 1500 mg q24H as patient at risk for accumulation with BMI >35 and CKD * Goal trough level 15-20 mcg/mL * Trough currently not ordered as there may be change in renal function. Pharmacy will continue to follow and will adjust dose/frequency as necessary. Thank you.
[2020-09-03] MEDS ORDERED: LORazepam 0.5 MG/1 ML VIAL IV PRN (18:13)
[2020-09-03] MEDS ORDERED: LORazepam 1 MG/2 ML VIAL IV STA (18:13)
[2020-09-03] MEDS ORDERED: HALOPERIDOL LACTATE 5 MG/ML 1 ML VIAL IV PRN (18:13)
--- NOTE | 2020-09-03 18:22 | Hospitalist Progress Note ---
Date of Service September 03, 2020 Assessment & Plan (1) Anemia due to acute blood loss: Patient with normochromic, normocytic anemia with Hgb=6.2, Hct=19.2. He is not currently on any blood thinners. Concern for UGIB given complaint of abdominal pain, nausea as well as epigastric discomfort on exam. He is hemodynamically stable at present. 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 The patient has been in and out of hospitals over the last few weeks. 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 This mass began bleeding a few weeks ago during a PET scan. He was seen in the ER at [facility] and was sent to [facility] in [place]. They were told that the bleeding in the tumor was from an arterial source. The vessel was embolized and the patient was sent home. He has not had complete staging as of yet. Imaging performed today concerning for pulmonary metastases, possible malignant effusion as well as possible metastases to liver and spleen. This pt has not yet established care with Heme-Onc at [facility] and given his illness currently will likley not make his appointment next week, the family is open to seeing Dr Voss here and are just looking for some striaght answers regarding treatment. I am concerned that as he continues to accumulate medical issues his functional decline and reduced performance status will not be in his favor to treat. Tumor is not currently bleeding. Does not appear to be invading vessels or osseous structures on imaging (3) Dementia: Patient with mild dementia -Continue Aricept (4) Dyslipidemia: Chronic. Stable -Continue Atorvastatin (5) Hypertension: Blood pressure stable -Hold Metoprolol in setting of acute bleed -Continue to monitor (6) Atrial fibrillation: Patient with pacer in place. Currently not on anticoagulation therapy given recent bleeding from tumor -Holding Metoprolol and Diltiazem for now in setting of active bleeding -Continue to monitor (7) BRINDA (acute kidney injury): Elevated BUN and Cr. Uncertain baseline. BUN elevation maybe from ugi bleed, continue hydration (8) Leukocytosis: WBC=38.6 on presentation - Neutrophil predominant. Slight elevation in myelocytes/metamyelocytes as well. ?reactive in setting of acute stress, underlying malignancy, ?infection -Check peripheral smear -Follow cultures -Empiric antibiotic coverage with Vancomycin and Cefepime continued DVT NO chemoppx given concern for acute bleed, SCDs Code - Full per discussion with daughter Dispo - Admit to PCU POC - Blossom Kimble - [phone]. Updated on patient's status and care plan at time of admission. Admission and Anticipated Discharge Date Admission Date: September 02, 2020 Subjective pt is in significant pain and appears painful despite his transfusion, EGD reconsidered due to concern for airway issues and stable hgb large fungating draining right periauricular mass Review of Systems Review of Systems: Mild distress and fatigue c/o headache and neck pain does have speech or swallowing issues no chest pain, pressure or palpitations no shortness of breath, cough or wheezes no abdominal pain, nausea or vomiting, diarrhea or constipation no dysuria, hematuria or frequency significant LE swelling no back pain, CVA tenderness or radicular pain no bruising, bleeding or rashes no focal signs of weakness or numbness or altered sensation no complaints of anxiety or depression.. Physical Exam Physical Exam: The patient appeared in pain pale and weak Vital signs as documented. Head exam is normocephalic atraumatic no scleral icterus Neck is with massive fungating neck mass with associated facial droop Lungs are clear to auscultation, no focal loss of breath sounds Cardiac exam, Rhythm is tachycardic and regular.. No murmurs, rubs or gallops. Abdominal exam reveals normal bowel sounds, soft non tender, no masses Extremities are edematous bilaterally and both pedal pulses are present Neurologic exam is alert and oriented, no focal loss of strength or sensation Skin is without bruises or rashes Psychologically is without concerns for anxiety or depression. Results & Data Results & Data ([facility]) Vital Signs (Past 12 Hours) Vital Signs Temp Pulse Pulse Resp BP BP Pulse Ox 09/03/20 18:02 108 H 135/56 L 09/03/20 16:00 98.2 F 98 H 18 144/78 H 98 09/03/20 12:14 108 H 135/56 L 09/03/20 11:44 97.9 F 108 H 20 102/72 95 09/03/20 10:40 97.9 F 108 H 17 116/64 95 09/03/20 07:00 98.2 F 92 H 18 141/62 H 99 PG Care Time/CCT Total # of Minutes Spent Total Time Spent with Patient: Total time spent is greater than 50% in coordination of care (as documented) at patient's floor/unit and/or counseling patient: Coding Level of Care Code 78462 Subseq Hosp Care Lvl 3 Diagnoses Anemia due to acute blood loss D62 Neoplasm of neck D49.89 Dementia F03.90 Dementia type: unspecified type Dementia behavioral disturbance: without behavioral disturbance Dyslipidemia E78.5 Hypertension I10 Hypertension type: essential hypertension Atrial fibrillation I48.20 Atrial fibrillation type: unspecified chronic BRINDA (acute kidney injury) N17.9 Leukocytosis D72.829 Leukocytosis type: unspecified (1) Dementia Dementia type: unspecified type Dementia behavioral disturbance: without behavioral disturbance Qualified Code(s): F03.90 - Unspecified dementia without behavioral disturbance (2) Hypertension Hypertension type: essential hypertension Qualified Code(s): I10 - Essential (primary) hypertension (3) Atrial fibrillation Atrial fibrillation type: unspecified chronic Qualified Code(s): I48.20 - Chronic atrial fibrillation, unspecified (4) Leukocytosis Leukocytosis type: unspecified Qualified Code(s): D72.829 - Elevated white blood cell count, unspecified
[2020-09-03] MEDS ORDERED: LORazepam 2 MG/ML VIAL (IM USE) IM STA (18:23)
[2020-09-03] MEDS ORDERED: HALOPERIDOL LACTATE 5 MG/ML 1 ML VIAL IM STA (18:23)
[2020-09-03] MEDS ORDERED: SODIUM CHLORIDE 0.9% 250 ML IV PRN (18:23)
--- NOTE | 2020-09-03 20:15 | Procedure Note ---
Procedure Note Date of Service September 03, 2020 Note INTERNAL JUGULAR CENTRAL LINE PROCEDURE NOTE: Procedure: Internal Jugular Central Line Placement Attending: Dr. Kasi Morrell Provider: SID Merrill Indication: Poor venous access Anesthesia: Lidocaine 1% I was consulted by the patient's primary physician, Dr. Gaviria, as there was need for central access following failed attempts to obtain peripheral IV access and ultrasound guided access by the IV team. Patient is a 80-year-old male currently undergoing treatment for upper GI bleed with acute blood loss requiring transfusion, SCC neoplasm of right neck. The patient is currently requiring a unit of RBCs to be transfused and planned to undergo endoscopy in the a.m. per GI, however he currently has poor venous access and is unable to receive transfusion with current access. IV team was previously consulted but is unable to obtain peripheral or ultrasound-guided IV access, at which time I was consulted to obtain central line access. Patient's INR on admission was within normal limits. Unable to attempt right IJ due to neoplasm, but easily able to visualize left IJ with ultrasound, and plan was made to attempt left IJ CVC. Consent was signed and placed on the chart prior to procedure by Dr Gaviria. A time-out was completed verifying correct patient, procedure, site, positioning, and implants(s) or special equipment if applicable. Patients left neck was cleansed and draped in the typical sterile fashion using Chloraprep. The Internal Jugular Vein and Carotid Artery were identified using ultrasound. The superficial tissue was anesthetized using 3 mL of 1% lidocaine without epinephrine under direct visualization with the ultrasound. After adequate anesthetization was achieved, the Internal Jugular vein was cannulated under direct ultrasound guidance using an introducer needle on a syringe. Good venous blood return was maintained prior to removal of syringe from introducer needle. Using Seldinger Technique, a guide wire was advanced through the introducer needle without resistance. The introducer needle was removed and ultrasound images were obtained of the guide wire within the Internal Jugular Vein and saved to the patients medical record. A small incision was made in penetrating fashion at the guide wire insertion site utilizing an 11 blade scalpel. The dilator was advanced to the vessel without resistance. The dilator was exchanged for the triple lumen catheter which was advanced into the vessel without resistance. The guide wire was removed intact from the catheter without issue. Claves were placed on each catheter tip with confirmation of good blood flow from each lumen. Each port was easily flushed with sterile saline. The catheter was placed at 16 cm and sut[address] in place. BioPatch was applied to the catheter and a sterile Tegaderm dressing was applied over the catheter with careful attention to sterility. Patient tolerated procedure well. No immediate complications were met. Post procedure x-ray was completed, placement was appropriate and no pneumothorax was noted. Images obtained are saved for permanent record Procedural Ultrasound Guidance: Procedure Date: 09/03/2020 Indication: Central venous catheter insertion Attending: Dr. Kasi Morrell Provider: SID Merrill Artery AND Vein visualized: Yes Compressible Vein: Yes Guidewire or Short Catheter seen in vein prior to dilation: Yes Line confirmed in Vein with ultrasound: Yes Images obtained are saved for permanent record. Coding CPT Codes Tubes, Drains, and Vasc Access - Tubes, Drains, and Vasc Access: [id number] Place catheter in vein superior or inferior vena cava ([id number]) Tubes, Drains, and Vasc Access - Tubes, Drains, and Vasc Access: [id number] Ultrasound Guidance For Vascular ([id number]) [facility] Procedure Codes (Charges) Tubes, Drains, and Vasc Access Procedure 1: Tubes, Drains, and Vasc Access: [id number] Place catheter in vein superior or inferior vena cava Procedure 2: Tubes, Drains, and Vasc Access: [id number] Ultrasound Guidance For Vascular
[2020-09-04] MEDS: METOPROLOL TARTRATE 1 MG/ML VIAL IV SCH ×5 (01:00→23:18)
[2020-09-04] MEDS: CEFEPIME 2,000 MG in SYRINGE 0 ML IV SCH ×3 (01:01→22:01)
[2020-09-04] MEDS: MoRPHine SULFATE 4 MG/ML 1 ML CARP\\VIAL IV PRN (04:44)
--- NOTE | 2020-09-04 06:36 | Ultrasound Report ---
US venous doppler UE LT HISTORY: 80 years-old Male eval for clot h/o cancer acute pain and swelling of the left upper extrem ity COMPARISON: None TECHNIQUE: Multiple real-time sonographic images of the left upper extremity deep venous structures w ere obtained assessing grayscale appearance, color and spectral flow FINDINGS: A cutaneous edema. Normal flow and phasicity of the left upper extremity venous structures. The left internal jugular proximal subclavian veins are not diagnostically visualized secondary to overlying b andage material. Nonocclusive superficial venous thrombosis is noted within the cephalic vein within the proximal forearm and antecubital vein. IMPRESSION: 1. No sonographic evidence of deep venous thrombosis. 2. Superficial venous thrombus as above. ACT 112: Negative or not required by law. The above report was generated using voice recognition software. It may contain grammatical, syntax o r spelling errors. Electronically signed by: Walter Mckeon M.D. 09/04/2020 6:35 AM
[2020-09-04 07:59] LABS: Creatinine Clr Calc Pharmacy 41.7 ml/min; Est GFR (Non-African American) 36.2
[2020-09-04] MEDS: VANCOMYCIN HCL 1,500 MG in SODIUM CHLORIDE 0.9% 500 ML IV SCH (08:11)
--- NOTE | 2020-09-04 08:13 | XRay Report ---
XR chest 1V portable CLINICAL HISTORY: Chest x-ray status post central line placement COMPARISON STUDY: 09/01/2020 FINDINGS: The heart remains enlarged. There is radiographic evidence of congestive failure. Trace ple ural effusions are suspected. There is no lobar consolidation. There is a left subclavian dual-chambe r central venous pacemaker. There is been interval placement of a left internal jugular central venou s catheter. The tip projects over the superior vena cava. There is no pneumothorax.[Bilateral pulmona ry nodules are suspected. IMPRESSION: 1. No evidence of pneumothorax status post placement of a left internal jugular central venous cathet er. ACT 112: Negative or not required by law. Electronically signed by: Lázaro Redmond M.D. 09/04/2020 8:11 AM
[2020-09-04] MEDS: DONEPEZIL HCL 5 MG TAB PO SCH (08:16)
[2020-09-04] MEDS: PANTOprazole 40 MG in SYRINGE 0 ML IV SCH ×2 (08:17→20:16)
--- NOTE | 2020-09-04 09:25 | Gastroenterology Progress Note ---
Date of Service September 04, 2020 Assessment & Plan (1) Melena: (2) GI bleed: possible PUD vs. metastatic disease of his SCC or AVM. Recs: --Continue NPO status for now. --continue protonix drip --trend H/H, transfuse prn hgb <7 --Hold off on invasive GI work up today. May consider tomorrow or later this week if clinically indicated. rest as per primary team Thank you for allowing me to participate in the care of this patient. Admission and Anticipated Discharge Date Admission Date: September 02, 2020 Supervising Physician Co-Signing Physician Notes I personally evaluated the patient and agree with the findings as documented by [employer] Exam: abd: soft, nt, nd Subjective Patient is unable to provide any history due to altered mental status. He remains on a 1:1 status. He did have a successful left IJ placed yesterday for venous access due to poor peripheral access. Remains NPO at this time. Continues Pantoprazole 40 mg IV BID. Per nursing, he has not had any overt melanotic or bloody stools since Friday, 09/02. Brown smear this am. Review of Systems Review of Systems: Unobtainable due to cognitive status Physical Exam Constitutional: + obese mild distress Eyes: EOM intact bilaterally Neck: normal visual inspection Respiratory: + labored breathing and + tachypneic Auscultation: + breath sounds absent, + crackles (left base) and + wheezes (right base) Cardiovascular: Rate/Rhythm: regular rate and regular rhythm Gastrointestinal (Abdomen): Inspection/Auscultation: normal bowel sounds Percussion/Palpation: abdomen soft Musculoskeletal: + anasarca Results & Data Results & Data ([facility]) Vital Signs (Past 12 Hours) Vital Signs Temp Pulse Pulse Resp BP BP Pulse Ox 09/04/20 06:50 37 C 96 H 16 124/65 93 09/04/20 05:55 105 H 159/90 H 09/04/20 03:20 36.9 C 100 H 24 159/90 H 96 09/04/20 02:51 36.8 C 105 H 22 114/64 97 09/04/20 01:52 36.9 C 97 H 22 103/50 L 97 09/04/20 01:00 110 H 133/79 09/04/20 00:52 36.5 C 106 H 22 133/79 95 09/04/20 00:22 36.5 C 115 H 22 132/79 98 09/04/20 00:07 36.4 C L 112 H 24 121/56 L 96 09/03/20 23:47 36.5 C 107 H 24 110/74 97 09/03/20 23:30 36.7 C 108 H 24 115/76 95 09/03/20 22:25 36.9 C 106 H 24 113/75 94 09/03/20 21:55 36.9 C 117 H 24 140/74 97 09/03/20 21:25 36.9 C 113 H 24 118/81 97 Laboratory Results Abnormal lab results 09/01/20 09/03/20 09/03/20 Range/Units 22:33 09:21 09:21 WBC 24.99 H (4.8-10.8) K/uL RBC 2.51 L (4.7-6.1) M/uL Hgb 7.3 L (14.0-18.0) g/dL Hct 22.1 L (42-52) % RDW Std Deviation 47.4 H (36.4-46.3) fL RDW Coeff of Sheri 15.4 H (11.5-14.5) % Neut # (Auto) 22.89 H (1.4-6.5) K/uL Lymph # (Auto) 0.89 L (1.2-3.4) K/uL [place] # (Auto) 0.88 H (0.11-0.59) K/uL Immature Gran # (Auto) 0.31 H (0.00-0.02) K/uL Absolute Nucleated RBC 0.52 H (0-0) K/uL Chloride 109 H (98-107) mmol/L Carbon Dioxide 20 L (21-32) mmol/L BUN 84 H (7-18) mg/dl Creatinine 2.30 H (0.6-1.4) mg/dl BUN/Creatinine Ratio 36.5 H (10-20) Glucose 127 H (70-99) mg/dl Calcium 8.1 L (8.5-10.1) mg/dl Direct Bilirubin 0.4 H (0-0.2) mg/dl Total Protein 5.1 L (6.4-8.2) gm/dl Albumin 1.8 L (3.4-5.0) gm/dl Crossmatch See Detail 09/04/20 Range/Units 06:48 WBC (4.8-10.8) K/uL RBC (4.7-6.1) M/uL Hgb (14.0-18.0) g/dL Hct (42-52) % RDW Std Deviation (36.4-46.3) fL RDW Coeff of Sheri (11.5-14.5) % Neut # (Auto) (1.4-6.5) K/uL Lymph # (Auto) (1.2-3.4) K/uL [place] # (Auto) (0.11-0.59) K/uL Immature Gran # (Auto) (0.00-0.02) K/uL Absolute Nucleated RBC (0-0) K/uL Chloride (98-107) mmol/L Carbon Dioxide (21-32) mmol/L BUN (7-18) mg/dl Creatinine 1.73 H D (0.6-1.4) mg/dl BUN/Creatinine Ratio (10-20) Glucose (70-99) mg/dl Calcium (8.5-10.1) mg/dl Direct Bilirubin (0-0.2) mg/dl Total Protein (6.4-8.2) gm/dl Albumin (3.4-5.0) gm/dl Crossmatch PG Care Time/CCT Total # of Minutes Spent Total Time Spent with Patient: Total time spent is greater than 50% in coordination of care (as documented) at patient's floor/unit and/or counseling patient: Coding Level of Care Code 37910 Subseq Hosp Care Lvl 3 Diagnoses Melena K92.1 GI bleed K92.2
--- NOTE | 2020-09-04 09:37 | Hospitalist Progress Note ---
Date of Service September 04, 2020 Assessment & Plan (1) Acute respiratory failure with hypoxia and hypercapnia: 1-18 ABG with pCO2 49, pH 7.3, oxygen 80% on RA requiring 3L oxymask likely related to sedating medications and underlying obstructive sleep apnea WEI Likely exacerbated by large right neck mass consulted pulmonary for eval of possible intubation vs Bipap (2) SIRS (systemic inflammatory response syndrome): 1-16 WBC 38.6 - Neutrophil predominant. Slight elevation in myelocytes/metamyelocytes as well. ?reactive in setting of acute stress, underlying malignancy, ?infection -Check peripheral smear -Follow cultures 1-18 tachycardia and WBC > 12 leukocytosis improving cont empiric antibiotic coverage with Vancomycin and Cefepime (3) Encephalopathy: several days ago, patient was conversational, alert 1-18 acutely worse, thought to be related to morphine in setting of ESRD, uremia, hypercapnia required multiple doses of haldol today due to picking at lines, bandages, hitting nurses continue sitter at bedside checked ABG which shows hypercapnia, which is likely exacerbating encephalopathy (4) BRINDA (acute kidney injury): 1-15 Cr 2.37 today, uncertain baseline. BUN elevation maybe from ugi bleed, continue hydration 1-18 Cr 1.73, improving (5) Anemia due to acute blood loss: 1-15 Hg 6.2, normochromic, normocytic not currently on any blood thinners. Concern for UGIB given complaint of abdominal pain, nausea as well as epigastric discomfort on exam. He is hemodynamically stable at present. -Transfuse 2u PRBCs 1-16 post transfusion hgb did fall, will transfuse another 2 units -Protonix bolus bid -GI Consultation appreciated, continues on protonix bolus bid -Zofran PRN nausea 1-18 Hg 9.1 today tachycardia improved after transfusions GI stated that his BM was brown and to hold off on invasive procedures for now (6) Atrial fibrillation: Patient with pacer in place. 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 The patient has been in and out of hospitals over the last few weeks. 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 This mass began bleeding a few weeks ago during a PET scan. He was seen in the ER at [facility] and was sent to [facility] in [place]. They were told that the bleeding in the tumor was from an arterial source. The vessel was embolized and the patient was sent home. He has not had complete staging as of yet. Imaging performed today concerning for pulmonary metastases, possible malignant effusion as well as possible metastases to liver and spleen. This pt has not yet established care with Heme-Onc at [facility] and given his illness currently will dorothy not make his appointment 09-[address] Lovelace. The family is open to seeing Dr Voss here and are just looking for some striaght answers regarding treatment. I am concerned that as he continues to accumulate medical issues his functional decline and reduced performance status will not be in his favor to treat. (8) Dementia: Patient with mild dementia -Continue Aricept (9) Hypertension: Blood pressure stable -Hold Metoprolol in setting of acute bleed -Continue to monitor (10) Dyslipidemia: Chronic. Stable -Continue Atorvastatin DVT NO chemoppx given concern for acute bleed, SCDs Code - Full per discussion with daughter Dispo - Admit to PCU POC - Daughter - Shyanne - [phone]. Updated on patient's status and care plan at time of admission. Admission and Anticipated Discharge Date Admission Date: September 02, 2020 Subjective Unobtainable from patient who is sedated. Nursing states patient was pulling at lines and wound dressing, punching, agitated, needed to be given haldol 5mg. box toe stitcher present at bedside. Returned to bedside later, patient still obtunded, had just received morphine and ativan, per orders from palliative care. Review of Systems Review of Systems: Unobtainable due to mental health condition Physical Exam Constitutional: well nourished, + ill appearing and + morbidly obese; no acute distress Eyes: PERRL, conjunctivae normal, anicteric sclerae + pinpoint pupils ENMT: Mouth: oral mucous membranes not dry Neck: right neck mass with bandage, left neck with IJ catheter present Respiratory: normal respiratory effort; no respiratory distress and no labored breathing Auscultation: lungs clear to auscultation bilaterally; no crackles, no rales, no rhonchi and no wheezes obstructive breathing pattern Cardiovascular: Rate/Rhythm: regular rate and regular rhythm Heart Sounds: no murmur and no cardiac rub Vessels: normal peripheral pulses and radial pulses present; no JVD Extremities: no edema Gastrointestinal (Abdomen): Inspection/Auscultation: abdomen normal to inspection and normal bowel sounds; abdomen not distended Percussion/Palpation: abdomen soft; abdomen nontender, no guarding, abdomen not rigid and no hepatosplenomegaly Musculoskeletal: Head/Neck/Chest: normocephalic and head atraumatic Spine: no cervical spinal tenderness, no cervical muscular tenderness, no thoracic spinal tenderness and no lumbar spinal tenderness Skin: no rashes, warm and dry Neurologic: CN's II-XI intact bilaterally, moves all extremities and + obtunded Motor/Sensory: no tremor and no sensory deficit Psychiatric: Apperance: + disheveled Results & Data Results & Data ([facility]) Vital Signs (Past 12 Hours) Vital Signs Temp Pulse Pulse Resp BP BP Pulse Ox 09/04/20 06:50 37 C 96 H 16 124/65 93 09/04/20 05:55 105 H 159/90 H 09/04/20 03:20 36.9 C 100 H 24 159/90 H 96 09/04/20 02:51 36.8 C 105 H 22 114/64 97 09/04/20 01:52 36.9 C 97 H 22 103/50 L 97 09/04/20 01:00 110 H 133/79 09/04/20 00:52 36.5 C 106 H 22 133/79 95 09/04/20 00:22 36.5 C 115 H 22 132/79 98 09/04/20 00:07 36.4 C L 112 H 24 121/56 L 96 09/03/20 23:47 36.5 C 107 H 24 110/74 97 09/03/20 23:30 36.7 C 108 H 24 115/76 95 09/03/20 22:25 36.9 C 106 H 24 113/75 94 09/03/20 21:55 36.9 C 117 H 24 140/74 97 Laboratory Results Abnormal lab results 09/01/20 09/04/20 09/04/20 Range/Units 22:33 06:48 06:57 WBC 19.42 H (4.8-10.8) K/uL RBC 3.03 L (4.7-6.1) M/uL Hgb 9.1 L (14.0-18.0) g/dL Hct 27.8 L (42-52) % RDW Std Deviation 49.3 H (36.4-46.3) fL RDW Coeff of Sheri 15.5 H (11.5-14.5) % Neut # (Auto) 17.65 H (1.4-6.5) K/uL Lymph # (Auto) 0.65 L (1.2-3.4) K/uL [place] # (Auto) 0.92 H (0.11-0.59) K/uL Immature Gran # (Auto) 0.19 H (0.00-0.02) K/uL Absolute Nucleated RBC 0.18 H (0-0) K/uL ABG pH (7.35-7.45) ABG pCO2 (35-46) mmHg ABG O2 Saturation (90-95) % Creatinine 1.73 H D (0.6-1.4) mg/dl Crossmatch See Detail 09/04/20 Range/Units 15:58 WBC (4.8-10.8) K/uL RBC (4.7-6.1) M/uL Hgb (14.0-18.0) g/dL Hct (42-52) % RDW Std Deviation (36.4-46.3) fL RDW Coeff of Sheri (11.5-14.5) % Neut # (Auto) (1.4-6.5) K/uL Lymph # (Auto) (1.2-3.4) K/uL [place] # (Auto) (0.11-0.59) K/uL Immature Gran # (Auto) (0.00-0.02) K/uL Absolute Nucleated RBC (0-0) K/uL ABG pH 7.30 L (7.35-7.45) ABG pCO2 49 H (35-46) mmHg ABG O2 Saturation 96.2 H (90-95) % Creatinine (0.6-1.4) mg/dl Crossmatch Medications Administered Current Inpatient Medications Acetaminophen (Acetaminophen 325 Mg Tab) 650 mg PO Q4H PRN PRN Reason: Pain or Fever Stop: 10/02/20 02:32 Last Admin: 09/02/20 08:24 Dose: 650 mg Documented by: Albuterol (Albuterol Hfa 8 Gm Inhaler) 2 puffs INH Q6H PRN PRN Reason: Shortness Of Breath Stop: 10/02/20 02:32 Donepezil HCl (Donepezil Hcl 5 Mg Tab) 5 mg PO QAM [facility] Stop: 10/02/20 08:59 Last Admin: 09/04/20 08:16 Dose: Not Given Documented by: Furosemide (Furosemide 40 Mg Tab) 40 mg PO QAM [facility] Stop: 10/02/20 08:59 Last Admin: 09/02/20 08:14 Dose: 40 mg Documented by: Haloperidol Lactate (Haloperidol Oral Soln 2 Mg/Ml) 0.5 mg PO Q4H PRN PRN Reason: Agitation Stop: 10/04/20 11:13 Last Admin: 09/04/20 11:53 Dose: 0.5 mg Documented by: Hydromorphone HCl (Hydromorphone Inj 0.5 Mg/0.5 Ml Syr) 0.5 mg IV Q2H PRN PRN Reason: Moderate Pain Stop: 09/18/20 11:05 Hydromorphone HCl (Hydromorphone Inj 1 Mg/Ml Syringe) 1 mg IV Q2H PRN PRN Reason: Severe Pain Stop: 09/18/20 15:56 Sodium Chloride (Nss) 250 mls @ 15 mls/hr IV .[id number] PRN PRN Reason: For Transfusion Stop: 10/02/20 02:32 Last Infusion: 09/04/20 03:30 Dose: Infused Documented by: Cefepime HCl 2,000 mg/ Syringe 20 mls @ 5 mls/min IV Q12H [facility]; Protocol Stop: 09/09/20 09:59 Last Admin: 09/04/20 08:17 Dose: 5 mls/min Documented by: Pantoprazole Sodium 40 mg/ (Syringe) 10 mls @ 5 mls/min IV BID [facility] Stop: 10/03/20 11:59 Last Admin: 09/04/20 08:17 Dose: 5 mls/min Documented by: Vancomycin HCl 1,500 mg/ (Sodium Chloride) 530 mls @ 200 mls/hr IV Q24H [facility] Stop: 09/11/20 07:59 Last Infusion: 09/04/20 10:57 Dose: Infused Documented by: Metoprolol Tartrate (Metoprolol Tartrate 1 Mg/Ml Vial) 5 mg IV Q4 PRN PRN Reason: sbp> 185, dbp >95, HR >120 Stop: 10/03/20 11:16 Metoprolol Tartrate (Metoprolol Tartrate 1 Mg/Ml Vial) 5 mg IV Q6 MELISA Stop: 10/03/20 11:59 Last Admin: 09/04/20 11:57 Dose: 5 mg Documented by: Miscellaneous Information (Vancomycin Consult Active) 1 ea N/A UD PRN PRN Reason: Consult Stop: 10/02/20 02:32 Ondansetron HCl (Ondansetron Inj 2 Mg/Ml 2 Ml Vial) 4 mg IV Q6H PRN PRN Reason: Nausea Stop: 10/02/20 02:32 PG Care Time/CCT Total # of Minutes Spent Total Time Spent with Patient: Total time spent is greater than 50% in coordination of care (as documented) at patient's floor/unit and/or counseling patient: Coding Level of Care Code 58202 Subseq Hosp Care Lvl 3 Diagnoses Acute respiratory failure with hypoxia and hypercapnia J96.01; J96.02 SIRS (systemic inflammatory response syndrome) R65.10 Encephalopathy G93.40 BRINDA (acute kidney injury) N17.9 Anemia due to acute blood loss D62 Atrial fibrillation I48.20 Atrial fibrillation type: unspecified chronic Neoplasm of neck D49.89 Dementia F03.90 Dementia behavioral disturbance: without behavioral disturbance Dementia type: unspecified type Hypertension I10 Hypertension type: essential hypertension Dyslipidemia E78.5 (1) Atrial fibrillation Atrial fibrillation type: unspecified chronic Qualified Code(s): I48.20 - Chronic atrial fibrillation, unspecified (2) Dementia Dementia behavioral disturbance: without behavioral disturbance Dementia type: unspecified type Qualified Code(s): F03.90 - Unspecified dementia without behavioral disturbance (3) Hypertension Hypertension type: essential hypertension Qualified Code(s): I10 - Essential (primary) hypertension
[2020-09-04 09:59] LABS: Basophils # (auto) 0.01 K/uL (0-0.2); Basophils % (auto) 0.1 %; Hematocrit (blood only) 27.8 % (42-52); Hemoglobin 9.1 g/dL (14.0-18.0); Immature Granulocytes # (auto) 0.19 K/uL (0.00-0.02); Lymphocytes # (auto) 0.65 K/uL (1.2-3.4); Lymphocytes % (auto) 3.3 %; Mean Corpuscular Hgb Conc 32.7 g/dL (32-36); Mean Corpuscular Volume 91.7 fL (80-100); Mean Platelet Volume 8.9 fL (7.4-10.4); Monocytes # (auto) 0.92 K/uL (0.11-0.59); Monocytes % (auto) 4.7 %; Neutrophils # (auto) 17.65 K/uL (1.4-6.5); Neutrophils % (auto) 90.9 %; Nucleated RBC # (auto) 0.18 K/uL (0-0); Nucleated RBC % (auto) 0.9 %; Platelet Count 174 K/uL (130-400); RDW Coefficient of Variation 15.5 % (11.5-14.5); RDW Standard Deviation 49.3 fL (36.4-46.3); Red Blood Count 3.03 M/uL (4.7-6.1); White Blood Count 19.42 K/uL (4.8-10.8)
[2020-09-04] MEDS ORDERED: HYDROmorphone INJ 0.5 MG/0.5 ML SYR IV PRN (11:06)
[2020-09-04] MEDS ORDERED: HALOPERIDOL ORAL SOLN 2 MG/ML PO PRN (11:14)
--- NOTE | 2020-09-04 13:15 | Palliative Care Consultation ---
Date of Consultation September 04, 2020 Assessment & Plan (1) Pain: He has acute on chronic kidney disease with GFR of 30. With frequent morphine dosing, he may be having delirium related to metabolite toxicity. It is difficult to determine at this point if restlessness is pain vs delirium vs combination. Haldol ordered for delirium. I changed pain medication to hydromorphone which is less toxic in renal failure. Monitor his comfort as medications clear. (2) Palliative care encounter: I spoke with his daughter, Yaritza, on the phone and updated her on medication changes and his current condition. Family has had virtually no time to adjust to his recent diagnosis and multiple complications. They are aware of concern for metastatic disease in lung, liver and spleen, as well as pleural effusion. I did discuss that his functional status at this time limits treatment options and concerns for airway stability with anesthesia for endoscopy. I explained that his condition is very concerning. They are anxious to have input from oncology about whether there are treatment options for him. Palliative care will follow to assist with goals of care discussion and symptom management. Thank you for allowing us to participate in his care. (3) Neoplasm of neck: (4) Acute upper gastrointestinal bleeding: (5) BRINDA (acute kidney injury): (6) Dementia: Dementia type: unspecified type Dementia behavioral disturbance: without behavioral disturbance Qualified Code(s): F03.90 - Unspecified dementia without behavioral disturbance History of Present Illness Reason for Consultation: goals of care Requesting Physician: Dr. Gaviria Attending Physician: Xin Meraz MD History of Present Illness 80 yo gentleman with multiple hospitalizations/ER visits in [place] and [facility] in the last few weeks. 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 He has been hospitalized for embolization at [facility] for bleeding from the tumor. He has also been seen for shortness of breath, mental status change and UTI at [place]. At that time his fentanyl patch was stopped. He has also been seen for right facial droop and was admitted here with anemia and possible GI bleed. Unfortunately he is very high risk for endoscopy. He has had blood transfusion and his hemoglobin has improved from 6.2 on admission to 9.1. He has had escalating pain and restlessness. He is unfortunately unable to communicate but is very restless and moaning in bed. He has had three doses of morphine 4mg IV in the last 24 hours and a dose of ativan early this morning and remains restless. He is a full code and family has been hoping to start treatment for his cancer and were scheduled as outpatient to see oncology tomorrow. We have been consulted to assist with goals of care. Allergies Allergy/AdvReac Type Severity Reaction Status Date / Time No Known Allergies Allergy Verified 09/01/20 22:27 Home Medications Medication Instructions Recorded Confirmed Type diltiazem HCl 240 mg PO QAM 06/15/18 09/01/20 History furosemide [Lasix] 40 mg PO QAM 06/15/18 09/01/20 History potassium chloride [Klor-Con M20] 20 meq PO BID 06/15/18 09/01/20 History albuterol sulfate [Ventolin HFA] 2 puff INHALATION Q6H PRN 09/01/20 09/01/20 History artificial tears(hypromellose) 1 drp OPR TID 09/01/20 09/01/20 History atorvastatin 20 mg PO HS 09/01/20 09/01/20 History donepezil 5 mg PO QAM 09/01/20 09/01/20 History fentanyl 1 patch TRANSDERMAL [id number] 09/01/20 09/01/20 History metoprolol succinate 50 mg PO BID 09/01/20 09/01/20 History Patient History Medical History Atrial fibrillation Dementia Dyslipidemia History of pacemaker Hypertension Neoplasm of neck Surgical History History of cholecystectomy History of left knee replacement Family History Other Family history non-contributory Social History Smoking Status: Unknown if ever smoked Tobacco Type: Smokeless Tobacco (Dip or Chew) Hx Alcohol Use: Yes Alcohol type: beer Hx Substance Use: No Preferred Language: Syriac Beliefs That Will Affect Care: None Current Living Situation: Spouse Feels Safe at Home: Yes Assistive Devices: None Review of Systems Review of Systems: Unobtainable due to reduced consciousness [place] Symptom Assessment Scale unobtainable restless, moaning, picking at dressing on right cheek Palliative Performance Score 20% Physical Exam Constitutional: + morbidly obese and + edematous; + uncomfortable Eyes: pinpoint pupils, Right ptosis ENMT: Large mass right cheek with serosanguinous drainage on dressing Respiratory: + uses accessory muscles Gastrointestinal (Abdomen): Percussion/Palpation: abdomen nontender Skin: warm and dry Neurologic: moves all extremities and + obtunded Results & Data ([facility]) Vital Signs (Past 12 Hours) Vital Signs Temp Pulse Pulse Resp BP BP Pulse Ox 09/04/20 11:57 108 H 09/04/20 11:17 98.6 F 86 18 135/72 98 09/04/20 06:50 98.6 F 96 H 16 124/65 93 09/04/20 05:55 105 H 159/90 H 09/04/20 03:20 98.4 F 100 H 24 159/90 H 96 09/04/20 02:51 98.2 F 105 H 22 114/64 97 09/04/20 01:52 98.4 F 97 H 22 103/50 L 97 09/04/20 01:00 110 H 133/79 09/04/20 00:52 97.7 F 106 H 22 133/79 95 PG Care Time/CCT Total # of Minutes Spent Total Time Spent with Patient: Total time spent is greater than 50% in co ordination of care (as documented) at patient's floor/unit and/or counseling patient: Total time spent 75 minutes with more than 50% of time spent on family communication, symptom management. Coding Level of Care Code 22181 Inpt Consult Level 4 Diagnoses Pain R52 Palliative care encounter Z51.5 Neoplasm of neck D49.89 Acute upper gastrointestinal bleeding K92.2 BRINDA (acute kidney injury) N17.9 Dementia F03.90 Dementia type: unspecified type Dementia behavioral disturbance: without behavioral disturbance
[2020-09-04] MEDS ORDERED: HYDROmorphone INJ 1 MG/ML SYRINGE IV PRN (15:57)
[2020-09-04 16:13] LABS: Base Excess ABG -2.7 mEq/L (-9-1.8); HCO3 ABG 24 mmol/L (19-24); Oxygen Saturation ABG 96.2 % (90-95); PCO2 ABG 49 mmHg (35-46); PO2 ABG 93 mmHg (80-95)
[2020-09-04 16:14] LABS: Allen Test Pos (Pos)
--- NOTE | 2020-09-04 16:33 | Consultation ---
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 Feel free to contact if any questions Present on Admission?: Yes (2) Anemia due to acute blood loss: - transfuse blood as needed for symptomatic anemia - GI service on board - dvt prophylaxis via compression device Present on Admission?: Yes History of Present Illness Requesting Physician: H&N cancer, metastatic Attending Physician: Xin Meraz MD History of Present Illness (History obtained from chart review and discussion with daughter) 80 y/o male with history of Atrial Fibrillation, HTN, HLP and large tumor in right neck who presented to ED with abdominal pain, SOB, nausea, lightheadedness, melena and acute blood loss anemia Hgb 6.2 g/dL, possibly secondary to GIB. Patient has been in and out of hospitals over the last few weeks. 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 He was seen in the ER at [facility] and was sent to [facility] in [place]. They were told that the bleeding in the tumor was from an arterial source. The vessel was embolized and the patient was sent home. He returned to [place] on 08/29/[address] Mae from [facility] who suggested to start chemotherapy and immunotherapy on an outpatient basis. The family wishes to pursue their cancer treatment locally so Dr. Mae discussed the plan with Dr. Salas in [place]. They have an appointment to see Dr. Salas on 09/05/20. Patient was transfused 2 units PRBC and his Hgb is improved to 9.1 g/dL. GI consultation was obtained but endoscopy is deferred until patient is more stable. Today, patient is notably delirious and agitated. He received multiple doses of morphine with ongoing renal dysfunction. Patient was seen and examined at bedside but no history was obtained. Lab data and imaging studies were reviewed. Allergies Allergy/AdvReac Type Severity Reaction Status Date / Time No Known Allergies Allergy Verified 09/01/20 22:27 Home Medications Medication Instructions Recorded Confirmed Type diltiazem HCl 240 mg PO QAM 06/15/18 09/01/20 History furosemide [Lasix] 40 mg PO QAM 06/15/18 09/01/20 History potassium chloride [Klor-Con M20] 20 meq PO BID 06/15/18 09/01/20 History albuterol sulfate [Ventolin HFA] 2 puff INHALATION Q6H PRN 09/01/20 09/01/20 History artificial tears(hypromellose) 1 drp OPR TID 09/01/20 09/01/20 History atorvastatin 20 mg PO HS 09/01/20 09/01/20 History donepezil 5 mg PO QAM 09/01/20 09/01/20 History fentanyl 1 patch TRANSDERMAL [id number] 09/01/20 09/01/20 History metoprolol succinate 50 mg PO BID 09/01/20 09/01/20 History Patient History Medical History Atrial fibrillation Dementia Dyslipidemia History of pacemaker Hypertension Neoplasm of neck Surgical History History of cholecystectomy History of left knee replacement Family History Other Family history non-contributory Social History Smoking Status: Unknown if ever smoked Tobacco Type: Smokeless Tobacco (Dip or Chew) Hx Alcohol Use: Yes Alcohol type: beer Hx Substance Use: No Preferred Language: Belgian Communication Ability: Unable Beliefs That Will Affect Care: None Current Living Situation: Spouse Feels Safe at Home: Yes Assistive Devices: None Review of Systems Review of Systems: Unobtainable due to cognitive status (Delirium) Physical Exam Physical Exam: Constitutional: Vitals are stable, DELIRIOUS, AGITATED Eyes: Eyes are ELLI EOMI without conjunctival erythema or icterus. ENT: LARGE FUNGATING RIGHT SIDED NECK MASS WITH SURROUNDING ERYTHEMA Respiratory: Lung sounds were generally clear bilaterally. Cardiovascular: Heart was regular without significant murmur, gallops or rubs. Gastrointestinal: The abdomen was soft with normal bowel sounds. Lymphatic system: There was no palpable peripheral lymphadenopathy. Musculoskeletal System: The musculoskeletal system seemed concordant with age. Skin: The skin was negative for jaundice. Neurologic Exam: The exam was negative for focal findings. Extremities: PEDAL EDEMA 1+ Results & Data ([facility]) Vital Signs (Past 12 Hours) Vital Signs Temp Pulse Pulse Resp BP BP Pulse Ox 09/04/20 15:24 37.0 C 101 H 20 104/63 80 L 09/04/20 11:57 108 H 09/04/20 11:17 37.0 C 86 18 135/72 98 09/04/20 06:50 37 C 96 H 16 124/65 93 09/04/20 05:55 105 H 159/90 H Laboratory Results Abnormal lab results 09/01/20 09/03/20 09/03/20 Range/Units 22:33 09:21 09:21 WBC 24.99 H (4.8-10.8) K/uL RBC 2.51 L (4.7-6.1) M/uL Hgb 7.3 L (14.0-18.0) g/dL Hct 22.1 L (42-52) % RDW Std Deviation 47.4 H (36.4-46.3) fL RDW Coeff of Sheri 15.4 H (11.5-14.5) % Neut # (Auto) 22.89 H (1.4-6.5) K/uL Lymph # (Auto) 0.89 L (1.2-3.4) K/uL Dillon # (Auto) 0.88 H (0.11-0.59) K/uL Immature Gran # (Auto) 0.31 H (0.00-0.02) K/uL Absolute Nucleated RBC 0.52 H (0-0) K/uL Chloride 109 H (98-107) mmol/L Carbon Dioxide 20 L (21-32) mmol/L BUN 84 H (7-18) mg/dl Creatinine 2.30 H (0.6-1.4) mg/dl BUN/Creatinine Ratio 36.5 H (10-20) Glucose 127 H (70-99) mg/dl Calcium 8.1 L (8.5-10.1) mg/dl Direct Bilirubin 0.4 H (0-0.2) mg/dl Total Protein 5.1 L (6.4-8.2) gm/dl Albumin 1.8 L (3.4-5.0) gm/dl Crossmatch See Detail 09/04/20 Range/Units 06:48 WBC (4.8-10.8) K/uL RBC (4.7-6.1) M/uL Hgb (14.0-18.0) g/dL Hct (42-52) % RDW Std Deviation (36.4-46.3) fL RDW Coeff of Sheri (11.5-14.5) % Neut # (Auto) (1.4-6.5) K/uL Lymph # (Auto) (1.2-3.4) K/uL Dillon # (Auto) (0.11-0.59) K/uL Immature Gran # (Auto) (0.00-0.02) K/uL Absolute Nucleated RBC (0-0) K/uL Chloride (98-107) mmol/L Carbon Dioxide (21-32) mmol/L BUN (7-18) mg/dl Creatinine 1.73 H D (0.6-1.4) mg/dl BUN/Creatinine Ratio (10-20) Glucose (70-99) mg/dl Calcium (8.5-10.1) mg/dl Direct Bilirubin (0-0.2) mg/dl Total Protein (6.4-8.2) gm/dl Albumin (3.4-5.0) gm/dl Crossmatch Diagnostic Findings CT OF THE ABDOMEN AND PELVIS WITHOUT CONTRAST 09/01/20 IMPRESSION: 1. No acute process within the abdomen or pelvis. No bowel obstruction. Moderate amount of poorly formed stool within the colon. Normal appendix. 2. Small left pleural effusion with extensive pleural nodularity within visualized portions of the lower chest. 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 Numerous pulmonary nodules suggestive of pulmonary metastases. 3. Several indeterminate hypodense hepatic lesions. CT SOFT TISSUE NECK WO CONTRAST 09/01/20 FINDINGS: Multiple subcentimeter nodules are seen within the lung apices with the largest on the right measuring 8 mm. This is consistent with metastatic disease. There is also nodular pleural thickening within the left hemithorax consistent with metastatic disease. Left-sided pacemaker is noted. Mild mucosal thickening within the right maxillary sinus. Extensive calcified plaque within the bilateral carotid bifurcations. No left-sided cervical lymphadenopathy. There is a large ulcerating right neck mass which extends through the skin surface. There is associated right cervical lymphadenopathy with invasion into the right sternocleidomastoid muscle. This neck mass measures up to 10 cm in size. There are vascular collaterals along the deep surface of the neck mass. This mass invades into the inferior right ear lobe. There is opacification of the right external auditory canal which could be due to mass effect from the right neck mass or possibly tumor extension. This likely accounts for the opacified right middle ear cavity and mastoid air cells. This large right neck mass is centered at the right parotid gland. There is mild left deviation of the airway. However, the airway appears patent. Prevertebral soft tissues and the epiglottis are normal in thickness. IMPRESSION: 1. A large ulcerated soft tissue mass centered within the right parotid gland with associated right cervical lymphadenopathy as described above. 2. Multiple subcentimeter pulmonary nodules and nodular thickening of the left pleura consistent with metastatic disease.
--- NOTE | 2020-09-04 17:45 | Pulmonary Consultation ---
Date of Consultation September 04, 2020 Assessment & Plan (1) Acute respiratory failure with hypoxia and hypercapnia: --Chest x-ray 09/03/2020 personally reviewed: Portable film, increased cardiac silhouette. Right costophrenic angle is clean, left costophrenic angle is blunted. No clear lung infiltrate. CT abdomen pelvis: Lower part of the lung shows multiple pulmonary nodules bilaterally, small left-sided pleural effusion. The nodules are highly suspicious for metastatic disease --Acute hypoxic hypercapnic respiratory failure Multifactorial I think patient has undiagnosed WEI/OHS which is playing a role for his hypercapnia COVID-19 PCR -ve on 09/02. Procalcitonin 3.9 AB.30/49/93 on 1 L Recommend keeping oxygen saturation between 88-92% --Multiple pulmonary nodules This likely represents metastatic disease given the location --Left-sided pleural effusion Small No need to do thoracentesis --Morbid obesity --Overall prognosis is very poor given the significant metastatic disease Plan: The reason for patient's acidotic pH is metabolic acidosis on top of respiratory acidosis. Metabolic acidosis is most likely from the BRINDA and bicarb of 20, respiratory acidosis is because of WEI as well as getting medication which will suppress her respiratory drive. Would recommend avoiding any medication which will have significant suppression of the respiratory drive. Recommend BiPAP 12/8 nightly and as needed He does have ulcerating mass on the right parotid putting a BiPAP mask will be an issue. But intubation would be a risk if BiPAP is not put on. If there is any clinical deterioration will take the patient to the ICU. Palliative care is already following the case. Leukocytosis is most likely from underlying cancer. Which can increase procalcitonin as well. Recommend doing a nasal MRSA. If negative can discontinue vancomycin. Case was discussed with Dr Meraz and Joe PATEL Please note the above document was generated using voice recognition software. It may contain grammatical, syntax or spelling errors.Any formal questions or concerns about the content, text or information contained within the body of this dictation should be directly addressed to the provider for clarification. 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 The reason of admission of the patient in the hospital was acute blood loss anemia with hemoglobin of 6.2. Patient got transfused. Past medical history: Annmarie hudson currently not on anticoagulation because of bleeding, hypertension, dementia mild on Aricept Pulmonary consulted because of one episode of hypoxia with saturations in the low 80s while he was sleeping. At the time of examination patient was waking up only to sternal rub. He was not following commands. Patient had gotten 5 mg of haloperidol at around noon, this was followed by 0.5 of Dilaudid at around 1 PM and 0.5 of Ativan around 2 PM. Patient does have history of CKD. Patient was on 2 L oxygen mask at the time of examination he was saturating 96%. Not in any distress. Patient's nurse Joe PATEL was at bedside and helped during history and the latest events. Allergies Allergy/AdvReac Type Severity Reaction Status Date / Time No Known Allergies Allergy Verified 09/01/20 22:27 Home Medications Medication Instructions Recorded Confirmed Type diltiazem HCl 240 mg PO QAM 06/15/18 09/01/20 History furosemide [Lasix] 40 mg PO QAM 06/15/18 09/01/20 History potassium chloride [Klor-Con M20] 20 meq PO BID 06/15/18 09/01/20 History albuterol sulfate [Ventolin HFA] 2 puff INHALATION Q6H PRN 09/01/20 09/01/20 History artificial tears(hypromellose) 1 drp OPR TID 09/01/20 09/01/20 History atorvastatin 20 mg PO HS 09/01/20 09/01/20 History donepezil 5 mg PO QAM 09/01/20 09/01/20 History fentanyl 1 patch TRANSDERMAL [id number] 09/01/20 09/01/20 History metoprolol succinate 50 mg PO BID 09/01/20 09/01/20 History Patient History Medical History Atrial fibrillation Dementia Dyslipidemia History of pacemaker Hypertension Neoplasm of neck Surgical History History of cholecystectomy History of left knee replacement Family History Other Family history non-contributory Social History Smoking Status: Unknown if ever smoked Tobacco Type: Smokeless Tobacco (Dip or Chew) Hx Alcohol Use: Yes Alcohol type: beer Hx Substance Use: No Preferred Language: Danish Communication Ability: Unable Beliefs That Will Affect Care: None Current Living Situation: Spouse Feels Safe at Home: Yes Assistive Devices: None Review of Systems Review of Systems: All systems reviewed & are unremarkable except as noted in HPI & below and Unobtainable due to mental health condition Physical Exam Physical Exam: Constitutional: No acute distress HEENT: PERRLA, right parotid ulcerating mass appreciated. Respiratory system: Decreased air entry bilaterally, no wheeze, rhonchi, mild crackles bilateral lower lobes CVS: S1-S2 positive Abdomen: Soft, nontender, nondistended, positive bowel sounds x4, obese Extremities: +2 pulses bilaterally radialis/ dorsalis pedis, no cyanosis, +3 pitting edema bilateral lower extremity, ecchymosis bilateral upper extremities dorsal surface Neuro: GCS 9, patient responds to deep sternal rub Psych: Unable to assess G/U: Positive [place] Skin: no rashes, warm and dry Lymphatic: no cervical or axillary lymphadenopathy Results & Data Results & Data ([facility]) Vital Signs (Past 12 Hours) Vital Signs Temp Pulse Pulse Resp BP BP Pulse Ox 09/04/20 17:35 110 H 09/04/20 15:24 37.0 C 101 H 20 104/63 80 L 09/04/20 11:57 108 H 09/04/20 11:17 37.0 C 86 18 135/72 98 09/04/20 06:50 37 C 96 H 16 124/65 93 09/04/20 05:55 105 H 159/90 H 09/04/20 06:57 09/04/20 06:48 PG Care Time/CCT Total # of Minutes Spent Total Time Spent with Patient: Total time spent is greater than 50% in coordination of care (as documented) at patient's floor/unit and/or counseling patient: Coding Level of Care Code 60576 Initial Inpt Care Lvl 3 Diagnoses Acute respiratory failure with hypoxia and hypercapnia J96.01; J96.02 Encephalopathy G93.40
[2020-09-04] MEDS: HYDROmorphone INJ 0.5 MG/0.5 ML SYR IV PRN ×3 (18:00→23:19)
--- NOTE | 2020-09-04 18:01 | XRay Report ---
SINGLE VIEW CHEST CLINICAL HISTORY: Dyspnea. FINDINGS: An AP, portable, upright chest radiograph is compared to study dated 09/03/2020. A left inte rnal jugular central venous catheter is unchanged in position, as is a 2-lead cardiac pacemaker. The heart is enlarged noting atherosclerotic calcification of the thoracic aorta. There is pulmonary vasc ular congestion. Small pleural effusions are suspected. Numerous pulmonary nodules have not appreciab ly changed. No pneumothorax is seen. The skeletal structures are osteopenic. The bony thorax is gross ly intact. IMPRESSION: 1. Cardiomegaly and cardiac pacemaker. There is mild pulmonary vascular congestion. 2. Small pleural effusions are suspected. 3. Multiple pulmonary nodules are unchanged. These were better assessed on recent CT scans. ACT 112: Negative or not required by law. Electronically signed by: Fercho Kent M.D. 09/04/2020 5:59 PM
[2020-09-05] MEDS: HYDROmorphone INJ 0.5 MG/0.5 ML SYR IV PRN ×5 (02:10→11:36)
[2020-09-05] MEDS: METOPROLOL TARTRATE 1 MG/ML VIAL IV SCH ×3 (05:49→17:55)
--- NOTE | 2020-09-05 07:29 | Hospitalist Progress Note ---
Date of Service September 05, 2020 Assessment & Plan (1) Encephalopathy: several days ago, patient was conversational, alert 18 acutely worse, thought to be related to morphine in setting of ESRD, uremia, hypercapnia required multiple doses of haldol today due to picking at lines, bandages, h itting nurses continue sitter at bedside checked ABG which shows hypercapnia, which is likely exacerbating encephalopathy 09-05 precedex started by ICU, weaning off opiates and haldol (2) Sepsis: -16 WBC 38.6 - Neutrophil predominant. Slight elevation in myelocytes/metamyelocytes as well. ?reactive in setting of acute stress, underlying malignancy, ?infection -Check peripheral smear 18 tachycardia and WBC > 12 leukocytosis improving cont empiric antibiotic coverage with Vancomycin and Cefepime 09-05 right neck mass foul smelling, red, likely cellulitis is source of sepsis WBC improving with antibiotics, cont current vanc, cefepime blood cultures NGTD urine culture negative, final (3) Cellulitis: involving the right neck fungating mass, which is foul smelling and purulent cont vanc and cefepime (4) Hypernatremia: likely related to dehydration starting 1/2 NS at 80ml/hr repeat BMP in a couple hours and q8h after that (5) BRINDA (acute kidney injury): 15 Cr 2.37 today, uncertain baseline. 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 s/p embolization of bleeding vessel adjacent to the mass has not had complete staging as of yet Imaging performed on admit concerning for pulmonary metastases, possible malignant effusion as well as possible metastases to liver and spleen. missed his 09-[address] Lovelace. 09-[address] Major saw patient poor prognosis given fast growth, high tumor burden, comorbid conditions not a candidate for chemo or immunotherapy now due to delirium -- reassess as outpatient once stable palliative options may be available (7) Acute respiratory failure with hypoxia and hypercapnia: 18 ABG with pCO2 49, pH 7.3, oxygen 80% on RA requiring 3L oxymask likely related to sedating medications and underlying obstructive sleep apnea WEI Likely exacerbated by large right neck mass consulted pulmonary for eval of possible intubation vs Bipap 1-19 did not tolerate bipap well due to strap overlying tender right neck mass patient transferred to ICU for close monitoring (8) Anemia due to acute blood loss: 1-15 Hg 6.2, normochromic, normocytic not currently on any blood thinners. Concern for UGIB given complaint of abdominal pain, nausea as well as epigastric discomfort on exam. He is hemodynamically stable at present. -Transfuse 2u PRBCs 1-16 post transfusion hgb did fall, will transfuse another 2 units -Protonix bolus bid -GI Consultation appreciated, continues on protonix bolus bid -Zofran PRN nausea 1-18 Hg 9.1 today tachycardia improved after transfusions GI stated that his BM was brown and to hold off on invasive procedures for now (9) Atrial fibrillation: Patient with pacer in place. -Currently not on anticoagulation therapy given recent bleeding from tumor -Metoprolol IV -holding Diltiazem -Continue to monitor (10) Dementia: Patient with mild dementia -Continue Aricept (11) Hypertension: Blood pressure stable -Hold Metoprolol in setting of acute bleed -Continue to monitor (12) Dyslipidemia: Chronic. Stable -Continue Atorvastatin DVT NO chemoppx given concern for acute bleed, SCDs Code - Full per discussion with daughter Dispo - Admit to PCU POC - Blossom Kimble - [phone]. Updated on patient's status and care plan at time of admission. Admission and Anticipated Discharge Date Admission Date: September 02, 2020 Subjective Patient is obtunded. Does not respond other than opening his eyes. Nursing tells me he was thrashing in bed this morning, appearing in pain, so dilaudid was given. Review of Systems Review of Systems: Unobtainable due to mental health condition Physical Exam Constitutional: well nourished, + ill appearing and + morbidly obese; no acute distress Eyes: PERRL, conjunctivae normal, anicteric sclerae + pinpoint pupils ENMT: Mouth: oral mucous membranes not dry Neck: + thick neck large approx 10cm foul smelling fungating mass inferior to right ear Respiratory: normal respiratory effort; no respiratory distress and no labored breathing Auscultation: lungs clear to auscultation bilaterally; no crackles, no rales, no rhonchi and no wheezes Cardiovascular: Rate/Rhythm: regular rate and regular rhythm Heart Sounds: no murmur and no cardiac rub Vessels: normal peripheral pulses and radial pulses present; no JVD Extremities: no edema Gastrointestinal (Abdomen): Inspection/Auscultation: abdomen normal to inspection and normal bowel sounds; abdomen not distended Percussion/Palpation: abdomen soft; abdomen nontender, no guarding, abdomen not rigid and no hepatosplenomegaly Musculoskeletal: Head/Neck/Chest: normocephalic and head atraumatic Spine: no cervical spinal tenderness, no cervical muscular tenderness, no thoracic spinal tenderness and no lumbar spinal tenderness Skin: no rashes, warm and dry Neurologic: CN's II-XI intact bilaterally, moves all extremities and + obtunded Motor/Sensory: no tremor and no sensory deficit Psychiatric: Apperance: + disheveled Results & Data Results & Data ([facility]) Vital Signs (Past 12 Hours) Vital Signs Temp Pulse Pulse Resp BP BP Pulse Ox 09/05/20 05:49 108 H 115/64 09/05/20 04:00 36.5 C 108 H 20 115/64 100 09/05/20 02:14 88 20 98 09/05/20 00:00 107 H 09/04/20 23:24 36.6 C 115 H 20 172/58 H 98 09/04/20 23:18 111 H 111/70 09/04/20 22:25 78 20 94 09/04/20 20:10 36.3 C L 107 H 20 110/65 99 Laboratory Results Abnormal lab results 09/04/20 09/05/20 09/05/20 Range/Units 15:58 07:45 07:45 WBC 16.47 H (4.8-10.8) K/uL RBC 2.97 L (4.7-6.1) M/uL Hgb 8.8 L (14.0-18.0) g/dL Hct 28.0 L (42-52) % MCHC 31.4 L (32-36) g/dL RDW Std Deviation 53.2 H (36.4-46.3) fL RDW Coeff of Sheri 17.0 H (11.5-14.5) % Neut # (Auto) 14.90 H (1.4-6.5) K/uL Lymph # (Auto) 0.45 L (1.2-3.4) K/uL Grayson # (Auto) 0.98 H (0.11-0.59) K/uL Immature Gran # (Auto) 0.12 H (0.00-0.02) K/uL ABG pH 7.30 L (7.35-7.45) ABG pCO2 49 H (35-46) mmHg ABG O2 Saturation 96.2 H (90-95) % VBG pH (7.36-7.41) VBG pCO2 (38-50) mmHg Sodium 152 H D (136-145) mmol/L Chloride 120 H (98-107) mmol/L BUN 47 H (7-18) mg/dl BUN/Creatinine Ratio 39.8 H (10-20) Glucose 109 H (70-99) mg/dl Magnesium 3.0 H (1.8-2.4) mg/dl Total Protein 5.0 L (6.4-8.2) gm/dl Albumin 1.7 L (3.4-5.0) gm/dl Albumin/Globulin Ratio 0.5 L (0.9-2) 09/05/20 Range/Units 07:45 WBC (4.8-10.8) K/uL RBC (4.7-6.1) M/uL Hgb (14.0-18.0) g/dL Hct (42-52) % MCHC (32-36) g/dL RDW Std Deviation (36.4-46.3) fL RDW Coeff of Sheri (11.5-14.5) % Neut # (Auto) (1.4-6.5) K/uL Lymph # (Auto) (1.2-3.4) K/uL Grayson # (Auto) (0.11-0.59) K/uL Immature Gran # (Auto) (0.00-0.02) K/uL ABG pH (7.35-7.45) ABG pCO2 (35-46) mmHg ABG O2 Saturation (90-95) % VBG pH 7.27 L (7.36-7.41) VBG pCO2 58 H (38-50) mmHg Sodium (136-145) mmol/L Chloride (98-107) mmol/L BUN (7-18) mg/dl BUN/Creatinine Ratio (10-20) Glucose (70-99) mg/dl Magnesium (1.8-2.4) mg/dl Total Protein (6.4-8.2) gm/dl Albumin (3.4-5.0) gm/dl Albumin/Globulin Ratio (0.9-2) Medications Administered Current Inpatient Medications Acetaminophen (Acetaminophen 325 Mg Tab) 650 mg PO Q4H PRN PRN Reason: Pain or Fever Stop: 10/02/20 02:32 Last Admin: 09/02/20 08:24 Dose: 650 mg Documented by: Acetaminophen (Acetaminophen 1000 Mg/100 Ml Iv) 1,000 mg IV Q8H PRN PRN Reason: pain Stop: 09/08/20 12:17 Albuterol (Albuterol Hfa 8 Gm Inhaler) 2 puffs INH Q6H PRN PRN Reason: Shortness Of Breath Stop: 10/02/20 02:32 Donepezil HCl (Donepezil Hcl 5 Mg Tab) 5 mg PO QAM [facility] Stop: 10/02/20 08:59 Last Admin: 09/05/20 07:57 Dose: 5 mg Documented by: Haloperidol Lactate (Haloperidol Oral Soln 2 Mg/Ml) 0.5 mg PO Q4H PRN PRN Reason: Agitation Stop: 10/04/20 11:13 Last Admin: 09/04/20 11:53 Dose: 0.5 mg Documented by: Hydromorphone HCl (Hydromorphone Inj 0.5 Mg/0.5 Ml Syr) 0.5 mg IV Q3H PRN PRN Reason: Severe Pain Stop: 09/18/20 15:57 Sodium Chloride (Nss) 250 mls @ 15 mls/hr IV .[id number] PRN PRN Reason: For Transfusion Stop: 10/02/20 02:32 Last Infusion: 09/04/20 03:30 Dose: Infused Documented by: Pantoprazole Sodium 40 mg/ (Syringe) 10 mls @ 5 mls/min IV BID MELISA Stop: 10/03/20 11:59 Last Admin: 09/05/20 07:57 Dose: 5 mls/min Documented by: Vancomycin HCl 1,500 mg/ (Sodium Chloride) 530 mls @ 200 mls/hr IV Q24H [facility] Stop: 09/11/20 07:59 Last Infusion: 09/05/20 12:20 Dose: Infused Documented by: Dexmedetomidine HCl 200 mcg/ (Sodium Chloride) 50 mls @ 5.96 mls/hr IV .[id number] [facility]; Protocol Stop: 09/09/20 09:59 Last Admin: 09/05/20 11:23 Dose: 0.2 mcg/kg/hr, 6 mls/hr Documented by: Cefepime HCl 2,000 mg/ Syringe 20 mls @ 5 mls/min IV Q8H [facility]; Protocol Stop: 09/09/20 09:59 Sodium Chloride (1/2 Nss) 1,000 mls @ 80 mls/hr IV .[id number] [facility] Stop: 10/05/20 14:29 Metoprolol Tartrate (Metoprolol Tartrate 1 Mg/Ml Vial) 5 mg IV Q4 PRN PRN Reason: sbp> 185, dbp >95, HR >120 Stop: 10/03/20 11:16 Metoprolol Tartrate (Metoprolol Tartrate 1 Mg/Ml Vial) 5 mg IV Q6 [facility] Stop: 10/03/20 11:59 Last Admin: 09/05/20 11:36 Dose: 5 mg Documented by: Miscellaneous Information (Vancomycin Consult Active) 1 ea N/A UD PRN PRN Reason: Consult Stop: 10/02/20 02:32 Ondansetron HCl (Ondansetron Inj 2 Mg/Ml 2 Ml Vial) 4 mg IV Q6H PRN PRN Reason: Nausea Stop: 10/02/20 02:32 PG Care Time/CCT Total # of Minutes Spent Total Time Spent with Patient: Total time spent is greater than 50% in coordination of care (as documented) at patient's floor/unit and/or counseling patient: Coding Level of Care Code 49491 Subseq Hosp Care Lvl 3 Diagnoses Encephalopathy G93.40 Sepsis A41.9 Sepsis type: sepsis due to unspecified organism Sepsis acute organ dysfunction status: unspecified Cellulitis L03.221 Site of cellulitis: neck Hypernatremia E87.0 BRINDA (acute kidney injury) N17.9 Neoplasm of neck D49.89 Acute respiratory failure with hypoxia and hypercapnia J96.01; J96.02 Anemia due to acute blood loss D62 Atrial fibrillation I48.20 Atrial fibrillation type: unspecified chronic Dementia F03.90 Dementia behavioral disturbance: without behavioral disturbance Dementia type: unspecified type Hypertension I10 Hypertension type: essential hypertension Dyslipidemia E78.5 (1) Atrial fibrillation Atrial fibrillation type: unspecified chronic Qualified Code(s): I48.20 - Chronic atrial fibrillation, unspecified (2) Dementia Dementia behavioral disturbance: without behavioral disturbance Dementia ty pe: unspecified type Qualified Code(s): F03.90 - Unspecified dementia without behavioral disturbance (3) Hypertension Hypertension type: essential hypertension Qualified Code(s): I10 - Essential (primary) hypertension (4) Sepsis Sepsis type: sepsis due to unspecified organism Sepsis acute organ dysfunction status: unspecified Qualified Code(s): A41.9 - Sepsis, unspecified organism (5) Cellulitis Site of cellulitis: neck Qualified Code(s): L03.221 - Cellulitis of neck
--- NOTE | 2020-09-05 07:55 | Pulmonology Progress Note ---
Date of Service September 05, 2020 Assessment & Plan (1) Acute respiratory failure with hypoxia and hypercapnia: --Chest x-ray 09/03/2020 personally reviewed: Portable film, increased cardiac si lhouette. Right costophrenic angle is clean, left costophrenic angle is blunted. No clear lung infiltrate. CT abdomen pelvis: Lower part of the lung shows multiple pulmonary nodules bilaterally, small left-sided pleural effusion. The nodules are highly suspicious for metastatic disease --Metabolic encephalopathy Multifactorial Patient does have underlying history of dementia I think delirium from being in the hospital as well as getting medications is playing a significant role. Unsure if the patient's cancer is also playing a role when it comes to his encephalopathy. Aspiration precautions --Acute hypoxic hypercapnic respiratory failure Multifactorial I think patient has undiagnosed WEI/OHS which is playing a role for his hypercapnia COVID-19 PCR -ve on 09/02. Procalcitonin 3.9 Recommend keeping oxygen saturation between 88-92% --Hypernatremia Free water deficit 7 L --BRINDA Monitor BUNs/creatinine Avoid nephrotoxic medications --Multiple pulmonary nodules This likely represents metastatic disease given the location --Left-sided pleural effusion Small No need to do thoracentesis --Morbid obesity --Overall prognosis is very poor given the significant metastatic disease Plan: In/Out: - 1342, urine output 1900 Given the patient is still altered and getting Dilaudid on the floor I am going to take the patient to MICU and given Precedex and stop all the respiratory depressant medications. Patient nasal MRSA is negative. I am going to discontinue vancomycin. Patient's metabolic encephalopathy is multifactorial. Delirium while being in the hospital in a patient with underlying dementia is playing a role Patient is also hyponatremic. We will try to correct the sodium greatly 148 in the next 24 hours. Start the patient on D5 water 200 mL an hour IV. I would repeat BMP in 4 hours. Palliative care is on board. We will consider MRI of the brain if there is no improvement in mental status in the next 24-48 hours. Patient's daughter was updated regarding the patient's condition. They are requesting if there is a possibility we can start radiation therapy on the patient. I have personally spent 51 minutes of critical care time in the direct management of this patient. This is a life/limb threatening event. This includes time spent evaluating patient, direct bedside care, chart review, placing orders, interpretation of diagnostic studies, discussion with consultants, patient, and family members, as well as other required patient management activities. This time is exclusive of all separately billable procedures, and teaching time and separate from and in addition to any other critical care service time. Please note the above document was generated using voice recognition software. It may contain grammatical, syntax or spelling errors. (2) Encephalopathy: Admission and Anticipated Discharge Date Admission Date: September 02, 2020 Subjective Patient seen and examined at bedside. Overnight patient was still getting Dilaudid 0.5 mg for agitation. He had sitter 1 is to 1 bedside. He is more alert compared to when I saw him yesterday. But he does not follow commands still. Does get restless on and off. Review of Systems Review of Systems: Unobtainable due to mental health condition and Unobtainable due to cognitive status Physical Exam Physical Exam: Constitutional: No acute distress HEENT: PERRLA, right parotid ulcerating mass appreciated. Respiratory system: Decreased air entry bilaterally, no wheeze, rhonchi, mild crackles bilateral lower lobes CVS: S1-S2 positive Abdomen: Soft, nontender, nondistended, positive bowel sounds x4, obese Extremities: +2 pulses bilaterally radialis/ dorsalis pedis, no cyanosis, +3 pitting edema bilateral lower extremity, ecchymosis bilateral upper extremities dorsal surface Neuro: Patient responds to voice but does not follow commands, moves all extremities appropriately Psych: Unable to assess G/U: Positive [place] Skin: no rashes, warm and dry Lymphatic: no cervical or axillary lymphadenopathy Results & Data Results & Data ([facility]) Vital Signs (Past 12 Hours) Vital Signs Temp Pulse Pulse Resp BP BP Pulse Ox 09/05/20 05:49 108 H 115/64 09/05/20 04:00 36.5 C 108 H 20 115/64 100 09/05/20 02:14 88 20 98 09/05/20 00:00 107 H 09/04/20 23:24 36.6 C 115 H 20 172/58 H 98 09/04/20 23:18 111 H 111/70 09/04/20 22:25 78 20 94 09/04/20 20:10 36.3 C L 107 H 20 110/65 99 09/04/20 06:57 09/04/20 06:48 PG Care Time/CCT Total # of Minutes Spent Total Time Spent with Patient: Total time spent is greater than 50% in co ordination of care (as documented) at patient's floor/unit and/or counseling patient: Coding Level of Care Code None Diagnoses Acute respiratory failure with hypoxia and hypercapnia J96.01; J96.02 Encephalopathy G93.40 Time Spent (min) 51
[2020-09-05] MEDS: VANCOMYCIN HCL 1,500 MG in SODIUM CHLORIDE 0.9% 500 ML IV SCH (07:56)
[2020-09-05] MEDS: DONEPEZIL HCL 5 MG TAB PO SCH (07:57)
[2020-09-05] MEDS: PANTOprazole 40 MG in SYRINGE 0 ML IV SCH ×2 (07:57→21:06)
[2020-09-05 08:04] LABS: Basophils # (auto) 0.01 K/uL (0-0.2); Basophils % (auto) 0.1 %; Eosinophils # (auto) 0.01 K/uL (0-0.5); Eosinophils % (auto) 0.1 %; Hemoglobin 8.8 g/dL (14.0-18.0); Immature Granulocytes # (auto) 0.12 K/uL (0.00-0.02); Immature Granulocytes % (auto) 0.7 %; Lymphocytes # (auto) 0.45 K/uL (1.2-3.4); Lymphocytes % (auto) 2.7 %; Mean Corpuscular Hemoglobin 29.6 pg (25-34); Mean Corpuscular Hgb Conc 31.4 g/dL (32-36); Mean Corpuscular Volume 94.3 fL (80-100); Mean Platelet Volume 8.7 fL (7.4-10.4); Monocytes # (auto) 0.98 K/uL (0.11-0.59); Neutrophils % (auto) 90.4 %; Platelet Count 144 K/uL (130-400); RDW Standard Deviation 53.2 fL (36.4-46.3); Red Blood Count 2.97 M/uL (4.7-6.1); White Blood Count 16.47 K/uL (4.8-10.8)
[2020-09-05 08:06] LABS: Base Excess VBG -1.1 mEq/L; Oxygen Saturation VBG 84.5 %; pH VBG 7.27 (7.36-7.41)
[2020-09-05 08:29] LABS: Albumin Level 1.7 gm/dl (3.4-5.0); BUN Creatinine Ratio 39.8 (10-20); Calcium 8.5 mg/dl (8.5-10.1); Creatinine Clr Calc Pharmacy 61.1 ml/min; Est GFR (Non-African American) 56.9; Potassium 3.5 mmol/L (3.5-5.1)
[2020-09-05 08:34] LABS: Albumin Globulin Ratio 0.5 (0.9-2); Bilirubin,Total 0.8 mg/dl (0.2-1); Globulin 3.3 gm/dl (2.5-4.0); Phosphorus 4.3 mg/dl (2.5-4.9)
--- NOTE | 2020-09-05 09:24 | Pharmacy Report ---
Pharmacy Abx Dose Short Note - Date of Service September 05, 2020 - Assessment & Plan Assessment 80 year old M receiving vancomycin and cefepime for treatment of SSTI/possible pneumonia Day #4 of antimicrobial therapy. Plan Vancomycin * Scr rapidly changing from yesterday to today 1.73 to 1.19 mg/dL - unknown baseline Scr * Estimated kinetics: t1/2~13 hrs, ke~0.05 hr-1, CrCl ~60 ml/min * CXR 09/04 with small pleural effusions, now concern with possible pneumonia. Pulmonary consulted feel that leukocytosis may be related to underlying metastatic disease. * Current vancomycin dosing likely will not provide therapeutic level with changing renal function. Of note, patient also with elevated BMI >35 kg/m2 therefore increased accumulation likely with vancomycin. * Will plan to check a random level for vancomycin this evening to ensure appropriate before redosing patient and adjusting dose. If level <20 mcg/ml - will redose Pharmacy will continue to follow and will adjust dose/frequency as necessary. Thank you.
[2020-09-05] MEDS ORDERED: STAT IV Infusion **Titration per Protocol STA (09:46)
[2020-09-05] MEDS: CEFEPIME 2,000 MG in SYRINGE 0 ML IV SCH ×2 (10:18→17:54)
[2020-09-05] MEDS: DEXMEDETOMIDINE HCL 200 MCG in SODIUM CHLORIDE 0.9% 48 ML IV SCH ×3 (11:23→21:45)
[2020-09-05] MEDS ORDERED: ACETAMINOPHEN 1000 MG/100 ML IV IV PRN (12:18)
[2020-09-05] MEDS ORDERED: HYDROmorphone INJ 0.5 MG/0.5 ML SYR IV PRN (12:19)
--- NOTE | 2020-09-05 13:19 | Palliative Care Progress Note ---
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 He has had problems with bleeding of his tumor and GI bleeding vs internal bleeding caused by tumor. His prognosis is poor. I have spoken with his daughter, Yaritza, yesterday and today. Family has had very little time to process his diagnosis. Yaritza tells me that her dad has always been a fighter and that he was looking forward to meeting with oncologist as an outpatient and starting treatment. Unfortunately, he was hospitalized before his appointment and is currently not a candidate for treatment given his current condition. Yaritza understands this but feels that he would want to try and get better. I reviewed potential problems with bipap and intubation based on the location and size of his tumor. CT of neck on 09/01 shows airway deviation. I expressed concern that he may not survive this admission. She acknowledges this but feels that he would want to continue treatment for now. Palliative care will follow. (2) Pain: In attempt to decrease opioid need, IV tylenol ordered. Discussed with RN, to use dilaudid only if tylenol is ineffective. (3) Encephalopathy: (4) Acute respiratory failure with hypoxia and hypercapnia: Admission and Anticipated Discharge Date Admission Date: September 02, 2020 Subjective Now in ICU with hypoxic, hypercarbic respiratory failure, likely related to WEI/OHS, tumor bulk, medications. Unfortunately, he has been very restless and had been calling out "help me" and answering yes when asked about pain, prior to sedation. He has been frequently picking at dressing over his tumor. His daughter reports that he frequently becomes agitated when hospitalized. Review of Systems Review of Systems: Unobtainable due to reduced consciousness Pain by PainAD, nonverbal pain score 7/10 Palliative Performance Score 20% Physical Exam Constitutional: + ill appearing restless ENMT: Large mass right cheek with serosanguinous drainage on dressing Respiratory: + uses accessory muscles Gastrointestinal (Abdomen): Percussion/Palpation: abdomen nontender Neurologic: moves all extremities and + obtunded Genitourinary: [place] catheter Results & Data ([facility]) Vital Signs (Past 12 Hours) Vital Signs Temp Pulse Pulse Resp BP BP BP 09/05/20 11:59 110 H 09/05/20 11:55 98.4 F 09/05/20 11:36 124 H 09/05/20 11:30 130 H 24 09/05/20 11:22 116 H 15 156/94 H 09/05/20 11:20 123 H 25 H 09/05/20 10:30 138 H 09/05/20 10:00 128 H 09/05/20 09:30 129 H 09/05/20 09:00 117 H 09/05/20 08:30 110 H 09/05/20 08:01 107 H 23 09/05/20 08:00 98.2 F 107 H 109 H 20 130/67 09/05/20 07:30 86 09/05/20 07:00 103 H 09/05/20 06:30 99 H 09/05/20 06:00 100 H 09/05/20 05:49 108 H 115/64 09/05/20 05:30 104 H 09/05/20 05:00 128 H 09/05/20 04:30 115 H 09/05/20 04:00 97.7 F 107 H 108 H 20 115/64 09/05/20 03:30 104 H 09/05/20 03:00 110 H 09/05/20 02:30 105 H 09/05/20 02:14 88 20 09/05/20 02:00 134 H 09/05/20 01:30 106 H Pulse Ox 09/05/20 11:59 09/05/20 11:55 09/05/20 11:36 09/05/20 11:30 99 09/05/20 11:22 97 09/05/20 11:20 09/05/20 10:30 09/05/20 10:00 09/05/20 09:30 09/05/20 09:00 09/05/20 08:30 09/05/20 08:01 95 09/05/20 08:00 93 09/05/20 07:30 09/05/20 07:00 09/05/20 06:30 09/05/20 06:00 09/05/20 05:49 09/05/20 05:30 09/05/20 05:00 09/05/20 04:30 09/05/20 04:00 100 09/05/20 03:30 09/05/20 03:00 09/05/20 02:30 09/05/20 02:14 98 09/05/20 02:00 09/05/20 01:30 PG Care Time/CCT Total # of Minutes Spent Total Time Spent with Patient: Total time spent is greater than 50% in coordination of care (as documented) at patient's floor/unit and/or counseling patient: Total time spent is 45 minutes with more than 50% of time spent on symptom management, prognosis, family support and goals of care. Coding Level of Care Code 08356 Subseq Hosp Care Lvl 3 Diagnoses Palliative care encounter Z51.5 Pain R52 Encephalopathy G93.40 Acute respiratory failure with hypoxia and hypercapnia J96.01; J96.02
[2020-09-05] MEDS ORDERED: SODIUM CHLORIDE 0.45 % 1,000 ML IV SCH (14:30)
[2020-09-05 17:37] LABS: BUN Creatinine Ratio 43.9 (10-20); Calcium 7.6 mg/dl (8.5-10.1); Creatinine Clr Calc Pharmacy 63.2 ml/min; Est GFR (African American) 68.8; Est GFR (Non-African American) 59.4; Potassium 3.8 mmol/L (3.5-5.1)
[2020-09-05] MEDS: DEXTROSE 5% 1,000 ML IV SCH ×2 (17:54→22:47)
--- NOTE | 2020-09-05 17:56 | Billing Data ---
Date of Service September 05, 2020 Coding Level of Care Code Critical Care 1st 30-74 mins Time Spent (min) 51
[2020-09-05 23:35] LABS: BUN Creatinine Ratio 42.9 (10-20); Calcium 7.3 mg/dl (8.5-10.1); Creatinine Clr Calc Pharmacy 63.8 ml/min; Est GFR (African American) 69.5; Potassium 3.4 mmol/L (3.5-5.1)
[2020-09-05] MEDS: DEXMEDETOMIDINE HCL 400 MCG in 0.9 % SODIUM CHLORIDE 96 ML IV SCH (23:48)
[2020-09-06] MEDS: METOPROLOL TARTRATE 1 MG/ML VIAL IV SCH (00:37)
[2020-09-06] MEDS: POTASSIUM CHLORIDE / WTR 20 MEQ/100 ML PLCT IV SCH ×2 (01:27→03:27)
[2020-09-06] MEDS: CEFEPIME 2,000 MG in SYRINGE 0 ML IV SCH ×2 (01:28→11:10)
[2020-09-06] MEDS: DEXMEDETOMIDINE HCL 400 MCG in 0.9 % SODIUM CHLORIDE 96 ML IV SCH ×3 (02:00→09:25)
[2020-09-06] MEDS: DEXTROSE 5% 1,000 ML IV SCH (04:03)
[2020-09-06] MEDS ORDERED: STAT IV Infusion **Titration per Protocol STA (05:24)
[2020-09-06] MEDS ORDERED: NOREPINEPHRINE/D5W 8 MG/508 ML BAG IV SCH (05:30)
[2020-09-06 06:12] LABS: iSTAT Art Bld Gas pCO2 Correct 43 mmHg (35-46); iSTAT Art Bld Gas pH Corrected 7.334 (7.35-7.45); iSTAT Arterial Blood Gas HCO3 23 meg/L (19-24); iSTAT Arterial Blood Gas pCO2 43 mmHg (35-46); iSTAT Arterial Blood Gas pH 7.33 (7.35-7.45); iSTAT Arterial Blood Gas pO2 70 mmHg (80-95); iSTAT Arterial Blood Gas pO2 C 70; iSTAT Carbon Dioxide 24 mmol/L (24-31); iSTAT Hematocrit 19 % (42-52); iSTAT Hemoglobin 6.5 g/dl (14.0-18.0); iSTAT Potassium 3.9 mmol/L (3.3-5.0); iSTAT Site R Brachial; iSTAT Sodium 147 mmol/L (135-144)
[2020-09-06] MEDS ORDERED: SODIUM CHLORIDE 0.9% 250 ML IV PRN (06:12)
[2020-09-06] MEDS ORDERED: ALBUMIN 5% 250 ML IV ONE (06:12)
[2020-09-06 06:14] LABS: Hematocrit (blood only) 18.1 % (42-52); Hemoglobin 5.7 g/dL (14.0-18.0); Mean Corpuscular Hemoglobin 29.7 pg (25-34); Mean Corpuscular Hgb Conc 31.5 g/dL (32-36); Mean Corpuscular Volume 94.3 fL (80-100); Platelet Count 120 K/uL (130-400); RDW Coefficient of Variation 17.3 % (11.5-14.5); RDW Standard Deviation 54.9 fL (36.4-46.3); Red Blood Count 1.92 M/uL (4.7-6.1); White Blood Count 12.52 K/uL (4.8-10.8)
[2020-09-06 06:28] LABS: Eosinophils # (auto) 0.07 K/uL (0-0.5); Eosinophils % (auto) 0.6 %; Immature Granulocytes # (auto) 0.06 K/uL (0.00-0.02); Immature Granulocytes % (auto) 0.5 %; Lymphocytes # (auto) 0.43 K/uL (1.2-3.4); Lymphocytes % (auto) 3.4 %; Monocytes # (auto) 0.67 K/uL (0.11-0.59); Monocytes % (auto) 5.4 %; Neutrophils # (auto) 11.29 K/uL (1.4-6.5); Neutrophils % (auto) 90.1 %; Polychromasia 1+
[2020-09-06 06:33] LABS: BUN Creatinine Ratio 42.5 (10-20); Calcium 7.7 mg/dl (8.5-10.1); Creatinine Clr Calc Pharmacy 58.1 ml/min; Est GFR (African American) 62.8; Est GFR (Non-African American) 54.2; Magnesium 2.5 mg/dl (1.8-2.4); Phosphorus 1.7 mg/dl (2.5-4.9); Potassium 4.1 mmol/L (3.5-5.1)
[2020-09-06 07:08] LABS: INR 1.2 (0.9-1.1); Prothrombin Time 12.4 Seconds (9.0-12.0)
--- NOTE | 2020-09-06 07:10 | Hospitalist Progress Note ---
Date of Service September 06, 2020 Assessment & Plan (1) Hemorrhagic shock: melena overnight levophed started this morning unable to resuscitate patient (2) GI bleed: PPI started for melena overnight this morning, continued to have multiple melenotic bowel movements GI consulted pre-EGD intubation planned -- patient lost pulse during intubation unable to be resuscitated (3) Anemia due to acute blood loss: 1-15 Hg 6.2, normochromic, normocytic not currently on any blood thinners. Concern for UGIB given complaint of abdominal pain, nausea as well as epigastric discomfort on exam. He is hemodynamically stable at present. -Transfuse 2u PRBCs 1-16 post transfusion hgb did fall, will transfuse another 2 units -Protonix bolus bid -GI Consultation appreciated, continues on protonix bolus bid -Zofran PRN nausea 1-18 Hg 9.1 today tachycardia improved after transfusions GI stated that his BM was brown and to hold off on invasive procedures for now 1-20 melena recurred Hg 6, given two units pRBC (4) Encephalopathy: several days ago, patient was conversational, alert 1-18 acutely worse, thought to be related to morphine in setting of ESRD, uremia, hypercapnia required multiple doses of haldol today due to picking at lines, bandages, hitting nurses continue sitter at bedside checked ABG which shows hypercapnia, which is likely exacerbating encephalopathy 1-19 precedex started by ICU, weaning off opiates and haldol 1-20 continues to be obtunded does not follow commands after intubation, planning to check MRI (5) Sepsis: 1-16 WBC 38.6 - Neutrophil predominant. Slight elevation in myelocytes/metamyelocytes as well. ?reactive in setting of acute stress, underlying malignancy, ?infection -Check peripheral smear 1-18 tachycardia and WBC > 12 leukocytosis improving cont empiric antibiotic coverage with Vancomycin and Cefepime 1-19 right neck mass foul smelling, red, likely cellulitis is source of sepsis WBC improving with antibiotics, cont current vanc, cefepime blood cultures NGTD urine culture negative, final (6) Cellulitis: involving the right neck fungating mass, which is foul smelling and purulent MRSA swab negative, vanc stopped cont cefepime (7) Hypernatremia: likely related to dehydration starting 1/2 NS at 80ml/hr repeat BMP in a couple hours and q8h after that (8) BRINDA (acute kidney injury): 09-01 Cr 2.37 today, uncertain baseline. 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 s/p embolization of bleeding vessel adjacent to the mass has not had complete staging as of yet Imaging performed on admit concerning for pulmonary metastases, possible malignant effusion as well as possible metastases to liver and spleen. missed his 09-[address] Lovelace. 09-[address] Major saw patient poor prognosis given fast growth, high tumor burden, comorbid conditions not a candidate for chemo or immunotherapy now due to delirium -- reassess as outpatient once stable palliative options may be available (10) Acute respiratory failure with hypoxia and hypercapnia: 09-04 ABG with pCO2 49, pH 7.3, oxygen 80% on RA requiring 3L oxymask likely related to sedating medications and underlying obstructive sleep apnea WEI Likely exacerbated by large right neck mass consulted pulmonary for eval of possible intubation vs Bipap 09-05 did not tolerate bipap well due to strap overlying tender right neck mass patient transferred to ICU for close monitoring (11) Atrial fibrillation: Patient with pacer in place. -Currently not on anticoagulation therapy given recent bleeding from tumor -Metoprolol IV -holding Diltiazem -Continue to monitor (12) Dementia: Patient with mild dementia -Continue Aricept (13) Hypertension: Blood pressure stable -Hold Metoprolol in setting of acute bleed -Continue to monitor (14) Dyslipidemia: Chronic. Stable -Continue Atorvastatin DVT NO chemoppx given concern for acute bleed, SCDs Code - Full per discussion with daughter Dispo - Admit to PCU POC - Daughter - Shyanne - [phone]. Updated on patient's status and care plan at time of admission. Admission and Anticipated Discharge Date Admission Date: September 02, 2020 Subjective Patient continued to be obtunded this morning. Sitter at bedside stated no purposeful movement, not following any commands. No improvement from prior. Having melena overnight. BP dropped this morning requiring levophed. Patient required 2 units pRBC transfusion this morning. Review of Systems Review of Systems: Unobtainable due to reduced consciousness Physical Exam Constitutional: well nourished, + ill appearing and + morbidly obese; no acute distress Eyes: PERRL, conjunctivae normal, anicteric sclerae + pinpoint pupils ENMT: Mouth: oral mucous membranes not dry Neck: + thick neck (large fungating mass on right neck, foul smelling, purulent) Respiratory: + tachypneic; no respiratory distress and no labored breathing Auscultation: lungs clear to auscultation bilaterally; no crackles, no rales, no rhonchi and no wheezes Cardiovascular: Rate/Rhythm: regular rhythm and + tachycardic Heart Sounds: no murmur and no cardiac rub Vessels: normal peripheral pulses and radial pulses present; no JVD Extremities: + edema Gastrointestinal (Abdomen): Inspection/Auscultation: abdomen normal to inspection and normal bowel sounds; abdomen not distended Percussion/Palpation: abdomen soft; abdomen nontender, no guarding, abdomen not rigid and no hepatosplenomegaly Musculoskeletal: Head/Neck/Chest: normocephalic and head atraumatic Spine: no cervical spinal tenderness, no cervical muscular tenderness, no thoracic spinal tenderness and no lumbar spinal tenderness Skin: no rashes, warm and dry Neurologic: CN's II-XI intact bilaterally (mild facial asymmetry), moves all extremities, + confused and + obtunded Motor/Sensory: no tremor and no sensory deficit Psychiatric: Orientation: + not alert Apperance: + disheveled Results & Data Results & Data ([facility]) Vital Signs (Past 12 Hours) Vital Signs Temp Pulse Resp BP Pulse Ox 09/06/20 05:01 72 22 97 09/06/20 05:00 88 23 83/41 L 96 09/06/20 04:00 37.1 C 102 H 22 92/38 L 97 09/06/20 03:01 101 H 22 99/45 L 97 09/06/20 03:00 103 H 25 H 88 L 09/06/20 02:01 105 H 20 111/52 L 90 09/06/20 02:00 111 H 23 88 L 09/06/20 01:01 106 H 21 95 09/06/20 01:00 93 H 22 98/74 L 96 09/06/20 00:37 99 H 91/46 L 09/06/20 00:15 108 H 21 91/46 L 95 09/06/20 00:01 107 H 25 H 92 09/06/20 00:00 37.7 C H 104 H 26 H 97/56 L 95 09/05/20 23:50 96 H 19 95/42 L 96 09/05/20 23:00 103 H 20 96/46 L 09/05/20 22:01 99 H 17 96 09/05/20 22:00 110 H 23 110/43 L 93 09/05/20 21:01 102 H 21 112/60 94 09/05/20 21:00 108 H 25 H 94 09/05/20 20:01 112 H 20 97 09/05/20 20:00 36.9 C 115 H 18 117/50 L 97 Laboratory Results Abnormal lab results 09/01/20 09/05/20 09/05/20 Range/Units 22:33 07:45 07:45 WBC 16.47 H (4.8-10.8) K/uL RBC 2.97 L (4.7-6.1) M/uL Hgb 8.8 L (14.0-18.0) g/dL POC Hgb (14.0-18.0) g/dl Hct 28.0 L (42-52) % POC Hct (42-52) % MCHC 31.4 L (32-36) g/dL RDW Std Deviation 53.2 H (36.4-46.3) fL RDW Coeff of Sheri 17.0 H (11.5-14.5) % Plt Count (130-400) K/uL Neut # (Auto) 14.90 H (1.4-6.5) K/uL Lymph # (Auto) 0.45 L (1.2-3.4) K/uL Mcculloch # (Auto) 0.98 H (0.11-0.59) K/uL Immature Gran # (Auto) 0.12 H (0.00-0.02) K/uL PT (9.0-12.0) Seconds INR (0.9-1.1) POC pH (7.35-7.45) POC pO2 (80-95) mmHg ABG pH (Temp Correct) (7.35-7.45) VBG pH (7.36-7.41) VBG pCO2 (38-50) mmHg POC Sodium (135-144) mmol/L Sodium 152 H D (136-145) mmol/L Potassium (3.5-5.1) mmol/L Chloride 120 H (98-107) mmol/L BUN 47 H (7-18) mg/dl BUN/Creatinine Ratio 39.8 H (10-20) Glucose 109 H (70-99) mg/dl Lactate (0.4-2.0) mmol/L Calcium (8.5-10.1) mg/dl Phosphorus (2.5-4.9) mg/dl Magnesium 3.0 H (1.8-2.4) mg/dl Total Protein 5.0 L (6.4-8.2) gm/dl Albumin 1.7 L (3.4-5.0) gm/dl Albumin/Globulin Ratio 0.5 L (0.9-2) Crossmatch See Detail 09/05/20 09/05/20 09/05/20 Range/Units 07:45 17:01 23:06 WBC (4.8-10.8) K/uL RBC (4.7-6.1) M/uL Hgb (14.0-18.0) g/dL POC Hgb (14.0-18.0) g/dl Hct (42-52) % POC Hct (42-52) % MCHC (32-36) g/dL RDW Std Deviation (36.4-46.3) fL RDW Coeff of Sheri (11.5-14.5) % Plt Count (130-400) K/uL Neut # (Auto) (1.4-6.5) K/uL Lymph # (Auto) (1.2-3.4) K/uL Mcculloch # (Auto) (0.11-0.59) K/uL Immature Gran # (Auto) (0.00-0.02) K/uL PT (9.0-12.0) Seconds INR (0.9-1.1) POC pH (7.35-7.45) POC pO2 (80-95) mmHg ABG pH (Temp Correct) (7.35-7.45) VBG pH 7.27 L (7.36-7.41) VBG pCO2 58 H (38-50) mmHg POC Sodium (135-144) mmol/L Sodium 156 H* 154 H (136-145) mmol/L Potassium 3.4 L (3.5-5.1) mmol/L Chloride 124 H 123 H (98-107) mmol/L BUN 50 H 49 H (7-18) mg/dl BUN/Creatinine Ratio 43.9 H 42.9 H (10-20) Glucose 109 H 184 H (70-99) mg/dl Lactate (0.4-2.0) mmol/L Calcium 7.6 L 7.3 L (8.5-10.1) mg/dl Phosphorus (2.5-4.9) mg/dl Magnesium (1.8-2.4) mg/dl Total Protein (6.4-8.2) gm/dl Albumin (3.4-5.0) gm/dl Albumin/Globulin Ratio (0.9-2) Crossmatch 09/06/20 09/06/20 09/06/20 Range/Units 05:28 05:28 05:28 WBC 12.52 H (4.8-10.8) K/uL RBC 1.92 L (4.7-6.1) M/uL Hgb 5.7 L* D (14.0-18.0) g/dL POC Hgb (14.0-18.0) g/dl Hct 18.1 L* (42-52) % POC Hct (42-52) % MCHC 31.5 L (32-36) g/dL RDW Std Deviation 54.9 H (36.4-46.3) fL RDW Coeff of Sheri 17.3 H (11.5-14.5) % Plt Count 120 L (130-400) K/uL Neut # (Auto) 11.29 H (1.4-6.5) K/uL Lymph # (Auto) 0.43 L (1.2-3.4) K/uL Mcculloch # (Auto) 0.67 H (0.11-0.59) K/uL Immature Gran # (Auto) 0.06 H (0.00-0.02) K/uL PT (9.0-12.0) Seconds INR (0.9-1.1) POC pH (7.35-7.45) POC pO2 (80-95) mmHg ABG pH (Temp Correct) (7.35-7.45) VBG pH (7.36-7.41) VBG pCO2 (38-50) mmHg POC Sodium (135-144) mmol/L Sodium 149 H (136-145) mmol/L Potassium (3.5-5.1) mmol/L Chloride 120 H (98-107) mmol/L BUN 53 H (7-18) mg/dl BUN/Creatinine Ratio 42.5 H (10-20) Glucose 198 H (70-99) mg/dl Lactate (0.4-2.0) mmol/L Calcium 7.7 L (8.5-10.1) mg/dl Phosphorus 1.7 L D (2.5-4.9) mg/dl Magnesium 2.5 H (1.8-2.4) mg/dl Total Protein (6.4-8.2) gm/dl Albumin (3.4-5.0) gm/dl Albumin/Globulin Ratio (0.9-2) Crossmatch See Detail 09/06/20 09/06/20 09/06/20 Range/Units 05:34 05:57 06:40 WBC (4.8-10.8) K/uL RBC (4.7-6.1) M/uL Hgb (14.0-18.0) g/dL POC Hgb 6.5 L* (14.0-18.0) g/dl Hct (42-52) % POC Hct 19 L* (42-52) % MCHC (32-36) g/dL RDW Std Deviation (36.4-46.3) fL RDW Coeff of Sheri (11.5-14.5) % Plt Count (130-400) K/uL Neut # (Auto) (1.4-6.5) K/uL Lymph # (Auto) (1.2-3.4) K/uL Mcculloch # (Auto) (0.11-0.59) K/uL Immature Gran # (Auto) (0.00-0.02) K/uL PT 12.4 H (9.0-12.0) Seconds INR 1.2 H (0.9-1.1) POC pH 7.33 L (7.35-7.45) POC pO2 70 L (80-95) mmHg ABG pH (Temp Correct) 7.334 L (7.35-7.45) VBG pH (7.36-7.41) VBG pCO2 (38-50) mmHg POC Sodium 147 H (135-144) mmol/L Sodium (136-145) mmol/L Potassium (3.5-5.1) mmol/L Chloride (98-107) mmol/L BUN (7-18) mg/dl BUN/Creatinine Ratio (10-20) Glucose (70-99) mg/dl Lactate 2.3 H* (0.4-2.0) mmol/L Calcium (8.5-10.1) mg/dl Phosphorus (2.5-4.9) mg/dl Magnesium (1.8-2.4) mg/dl Total Protein (6.4-8.2) gm/dl Albumin (3.4-5.0) gm/dl Albumin/Globulin Ratio (0.9-2) Crossmatch Medications Administered Current Inpatient Medications Acetaminophen (Acetaminophen 325 Mg Tab) 650 mg PO Q4H PRN PRN Reason: Pain or Fever Stop: 10/02/20 02:32 Last Admin: 09/02/20 08:24 Dose: 650 mg Documented by: Acetaminophen (Acetaminophen 1000 Mg/100 Ml Iv) 1,000 mg IV Q8H PRN PRN Reason: pain Stop: 09/08/20 12:17 Albuterol (Albuterol Hfa 8 Gm Inhaler) 2 puffs INH Q6H PRN PRN Reason: Shortness Of Breath Stop: 10/02/20 02:32 Donepezil HCl (Donepezil Hcl 5 Mg Tab) 5 mg PO QAM [facility] Stop: 10/02/20 08:59 Last Admin: 09/05/20 07:57 Dose: 5 mg Documented by: Haloperidol Lactate (Haloperidol Oral Soln 2 Mg/Ml) 0.5 mg PO Q4H PRN PRN Reason: Agitation Stop: 10/04/20 11:13 Last Admin: 09/04/20 11:53 Dose: 0.5 mg Documented by: Hydromorphone HCl (Hydromorphone Inj 0.5 Mg/0.5 Ml Syr) 0.5 mg IV Q3H PRN PRN Reason: Severe Pain Stop: 09/18/20 15:57 Pantoprazole Sodium 40 mg/ (Syringe) 10 mls @ 5 mls/min IV BID [facility] Stop: 10/03/20 11:59 Last Admin: 09/05/20 21:06 Dose: 5 mls/min Documented by: Cefepime HCl 2,000 mg/ Syringe 20 mls @ 5 mls/min IV Q8H [facility]; Protocol Stop: 09/09/20 09:59 Last Admin: 09/06/20 01:28 Dose: 5 mls/min Documented by: Dextrose (D5w) 1,000 mls @ 200 mls/hr IV .Q5H [facility] Stop: 10/05/20 17:44 Last Admin: 09/06/20 04:03 Dose: 200 mls/hr Documented by: Dexmedetomidine HCl 400 mcg/ (Sodium Chloride) 100 mls @ 44.7 mls/hr IV .Q2H15M [facility]; Protocol Stop: 09/09/20 23:44 Last Admin: 09/06/20 04:35 Dose: 1.5 mcg/kg/hr, 44.7 mls/hr Documented by: Norepinephrine Bitartrate (Levophed/D5w) 8 mg in 508 mls @ 22.708 mls/hr IV .[id number] [facility]; Protocol Stop: 10/06/20 05:29 Last Admin: 09/06/20 05:37 Dose: 0.05 mcg/kg/min, 22.7 mls/hr Documented by: Sodium Chloride (Nss) 250 mls @ 15 mls/hr IV .[id number] PRN PRN Reason: For Transfusion Stop: 09/06/20 16:13 Metoprolol Tartrate (Metoprolol Tartrate 1 Mg/Ml Vial) 5 mg IV Q4 PRN PRN Reason: sbp> 185, dbp >95, HR >120 Stop: 10/03/20 11:16 Metoprolol Tartrate (Metoprolol Tartrate 1 Mg/Ml Vial) 5 mg IV Q6 [facility] Stop: 10/03/20 11:59 Last Admin: 09/06/20 00:37 Dose: Not Given Documented by: Ondansetron HCl (Ondansetron Inj 2 Mg/Ml 2 Ml Vial) 4 mg IV Q6H PRN PRN Reason: Nausea Stop: 10/02/20 02:32 PG Care Time/CCT Total # of Minutes Spent Total Time Spent with Patient: Total time spent is greater than 50% in coordination of care (as documented) at patient's floor/unit and/or counseling patient: Coding Level of Care Code 66691 Subseq Hosp Care Lvl 3 Diagnoses Hemorrhagic shock R57.8 GI bleed K92.1 GI bleed type/associated pathology: melena Anemia due to acute blood loss D62 Encephalopathy G93.40 Sepsis A41.9 Sepsis acute organ dysfunction status: unspecified Sepsis type: sepsis due to unspecified organism Cellulitis L03.221 Site of cellulitis: neck Hypernatremia E87.0 BRINDA (acute kidney injury) N17.9 Neoplasm of neck D49.89 Acute respiratory failure with hypoxia and hypercapnia J96.01; J96.02 Atrial fibrillation I48.20 Atrial fibrillation type: unspecified chronic Dementia F03.90 Dementia behavioral disturbance: without behavioral disturbance Dementia type: unspecified type Hypertension I10 Hypertension type: essential hypertension Dyslipidemia E78.5 (1) Atrial fibrillation Atrial fibrillation type: unspecified chronic Qualified Code(s): I48.20 - Chronic atrial fibrillation, unspecified (2) Cellulitis Site of cellulitis: neck Qualified Code(s): L03.221 - Cellulitis of neck (3) Dementia Dementia behavioral disturbance: without behavioral disturbance Dementia type: unspecified type Qualified Code(s): F03.90 - Unspecified dementia without behavioral disturbance (4) Sepsis Sepsis acute organ dysfunction status: unspecified Sepsis type: sepsis due to unspecified organism Qualified Code(s): A41.9 - Sepsis, unspecified organism (5) Hypertension Hypertension type: essential hypertension Qualified Code(s): I10 - Essential (primary) hypertension (6) GI bleed GI bleed type/associated pathology: melena Qualified Code(s): K92.1 - Melena
[2020-09-06] MEDS ORDERED: LACTATED RINGER'S 1,000 ML IV ONE (07:47)
[2020-09-06 08:19] LABS: Fibrinogen 441 mg/dl (184-400)
[2020-09-06] MEDS ORDERED: PANTOprazole 40 MG in DEXTROSE 5% 100 ML IV SCH (09:00)
[2020-09-06] MEDS: DONEPEZIL HCL 5 MG TAB PO SCH (09:24)
--- NOTE | 2020-09-06 11:04 | CT Scan Report ---
CT SCAN OF THE ABDOMEN AND PELVIS WITHOUT IV CONTRAST CLINICAL HISTORY: Generalized abdominal pain. Unspecified bleeding. COMPARISON STUDY: Abdominal CT dated 09/01/2020. TECHNIQUE: CT scan of the abdomen and pelvis is performed from the lung bases to the proximal femora. Images are reviewed in the axial, sagittal, and coronal planes. IV contrast was not administered for this examination. A dose lowering technique was utilized adhering to the principles of ALARA. The ex amination is degraded by motion artifact, as well as by streak artifact from the arms which could not be elevated above the abdomen. CT DOSE: 2066.18 mGy.cm FINDINGS: Lung bases: The heart is normal in size and without pericardial effusion. Pacemaker leads are noted. The coronary arteries are densely calcified. There are small left and trace right pleural effusions w ith bibasilar consolidation. Numerous subcentimeter pulmonary nodules are present at both lung bases. Hyperdense pleural lesions are again suggested and could represent pleural-based metastatic disease. There is a small hiatal hernia. An irregular right cardiophrenic soft tissue lesion is seen on image #36 and measures 4.4 x 1.6 cm. A 1.3 cm left cardiophrenic nodule is noted on image #29. Liver: The unenhanced liver is normal in size and contour. The liver demonstrates diffusely increased attenuation. There is no intrahepatic biliary ductal dilatation. A 2.9 cm cyst is noted in the left lobe. Gallbladder: Surgically absent noting clips in the gallbladder fossa. Spleen: Normal in size and attenuation. Pancreas: The unenhanced pancreas is atrophic and grossly unremarkable. Adrenal glands: Unremarkable. Kidneys: The unenhanced kidneys are atrophic and without hydronephrosis. There are no renal calculi i dentified. A 2.8 cm cyst is noted in the left kidney. Abdominal vasculature: There is advanced atherosclerotic calcification and mild ectasia of the abdomi nal aorta. The IVC is decompressed. Bowel: There is moderate constipation. No bowel obstruction is seen. The appendix is well-visualized and normal Peritoneum/retroperitoneum: There is no evidence of retroperitoneal hemorrhage. There is no intraperi toneal free air or abdominal ascites. There is a fat-containing umbilical hernia. Lymphadenopathy: None. Pelvic viscera: The bladder is decompressed around a [place] catheter and not well evaluated. The prost ate gland is mildly enlarged and heterogeneous. Skeletal structures: The skeletal structures are osteopenic. There is moderate to advanced lumbosacra l spondylosis. Arthritic change is noted in the hips and sacroiliac joints. No lytic or blastic lesio ns are seen. IMPRESSION: 1. Significantly streak and motion compromised examination. 2. No acute infectious or inflammatory findings are identified in the abdomen or pelvis. 3. Moderate constipation. 4. Left larger than right pleural effusions with bibasilar consolidation. This likely represents atel ectasis. Correlate clinically for evidence of superimposed pneumonia. 5. Lower lobe pulmonary nodules and pleural-based nodularity are unchanged from previous. This likely represents metastatic disease. 6. An irregular 4.4 cm right cardiophrenic lesion is unchanged end there is also a left cardiophrenic nodule. This is also concerning for metastatic disease. 7. The liver appears hyperdense which could be seen in the setting of iron overload or possibly amiod arone therapy. 6. Additional findings as above. ACT 112: Negative or not required by law. Electronically signed by: Fercho Kent M.D. 09/06/2020 11:03 AM
[2020-09-06] MEDS ORDERED: GLUCOSE 10 TABS/TUBE PO PRN (11:15)
[2020-09-06] MEDS ORDERED: DEXTROSE 50% 50 ML SYRINGE IV PRN (11:15)
[2020-09-06] MEDS ORDERED: CARBOHYDRATES FOR HYPOGLYCEMIA PO PRN (11:15)
[2020-09-06] MEDS ORDERED: GLUCOSE 40% GEL 15 GM TUBE PO PRN (11:15)
[2020-09-06] MEDS ORDERED: GLUCAGON FOR INJ 1 MG VIAL IM PRN (11:15)
--- NOTE | 2020-09-06 11:23 | Gastroenterology Progress Note ---
Date of Service September 06, 2020 Assessment & Plan (1) Melena: (2) GI bleed: possible PUD vs. metastatic disease of his SCC or AVM. Has continued bleeding this morning more bloody stools. Continue NPO. Continue Protonix drip at 8 mg/hr. Discussed with Yaritza (patient's daughter) who will consent for Mr. Wolf to have an EGD with Dr. Taylor today Supportive care per primary team. Recommend ongoing discussions with family about code status due to poor prognosis. Admission and Anticipated Discharge Date Admission Date: September 02, 2020 Supervising Physician Co-Signing Physician Notes I personally evaluated the patient and agree with the findings as documented by [employer] Exam: abd: soft, nt, nd remains confused/AMS. transfuse PRBC, rescuscitate today, plan for EGD this afternoon as he continues to have ongoing GI bleeding this morning and overnight. Subjective Patient unable to provide any history. Has been transferred to ICU due to significant drop in H&H from 8.8/28.0 to 5.7/18.1. Remains on a PPI ggt and is receiving a blood transfusion. Review of Systems Review of Systems: Unobtainable due to cognitive status Physical Exam Constitutional: + morbidly obese and + in distress Respiratory: + respiratory distress and + labored breathing Gastrointestinal (Abdomen): Inspection/Auscultation: normal bowel sounds Percussion/Palpation: abdomen soft Results & Data Results & Data ([facility]) Vital Signs (Past 12 Hours) Vital Signs Temp Pulse Resp BP Pulse Ox 09/06/20 08:01 36.9 C 112 H 18 112/57 L 98 09/06/20 05:01 72 22 97 09/06/20 05:00 88 23 83/41 L 96 09/06/20 04:00 37.1 C 102 H 22 92/38 L 97 09/06/20 03:01 101 H 22 99/45 L 97 09/06/20 03:00 103 H 25 H 88 L 09/06/20 02:01 105 H 20 111/52 L 90 09/06/20 02:00 111 H 23 88 L 09/06/20 01:01 106 H 21 95 09/06/20 01:00 93 H 22 98/74 L 96 09/06/20 00:37 99 H 91/46 L 09/06/20 00:15 108 H 21 91/46 L 95 09/06/20 00:01 107 H 25 H 92 09/06/20 00:00 37.7 C H 104 H 26 H 97/56 L 95 09/05/20 23:50 96 H 19 95/42 L 96 Laboratory Results Abnormal lab results 09/01/20 09/05/20 09/05/20 Range/Units 22:33 17:01 23:06 WBC (4.8-10.8) K/uL RBC (4.7-6.1) M/uL Hgb (14.0-18.0) g/dL POC Hgb (14.0-18.0) g/dl Hct (42-52) % POC Hct (42-52) % MCHC (32-36) g/dL RDW Std Deviation (36.4-46.3) fL RDW Coeff of Sheri (11.5-14.5) % Plt Count (130-400) K/uL Neut # (Auto) (1.4-6.5) K/uL Lymph # (Auto) (1.2-3.4) K/uL [place] # (Auto) (0.11-0.59) K/uL Immature Gran # (Auto) (0.00-0.02) K/uL PT (9.0-12.0) Seconds INR (0.9-1.1) Fibrinogen (184-400) mg/dl POC pH (7.35-7.45) POC pO2 (80-95) mmHg ABG pH (Temp Correct) (7.35-7.45) POC Sodium (135-144) mmol/L Sodium 156 H* 154 H (136-145) mmol/L Potassium 3.4 L (3.5-5.1) mmol/L Chloride 124 H 123 H (98-107) mmol/L BUN 50 H 49 H (7-18) mg/dl BUN/Creatinine Ratio 43.9 H 42.9 H (10-20) Glucose 109 H 184 H (70-99) mg/dl Lactate (0.4-2.0) mmol/L Calcium 7.6 L 7.3 L (8.5-10.1) mg/dl Phosphorus (2.5-4.9) mg/dl Magnesium (1.8-2.4) mg/dl Procalcitonin (0-0.5) ng/ml Crossmatch See Detail 09/06/20 09/06/20 09/06/20 Range/Units 05:28 05:28 05:28 WBC 12.52 H (4.8-10.8) K/uL RBC 1.92 L (4.7-6.1) M/uL Hgb 5.7 L* D (14.0-18.0) g/dL POC Hgb (14.0-18.0) g/dl Hct 18.1 L* (42-52) % POC Hct (42-52) % MCHC 31.5 L (32-36) g/dL RDW Std Deviation 54.9 H (36.4-46.3) fL RDW Coeff of Sheri 17.3 H (11.5-14.5) % Plt Count 120 L (130-400) K/uL Neut # (Auto) 11.29 H (1.4-6.5) K/uL Lymph # (Auto) 0.43 L (1.2-3.4) K/uL [place] # (Auto) 0.67 H (0.11-0.59) K/uL Immature Gran # (Auto) 0.06 H (0.00-0.02) K/uL PT (9.0-12.0) Seconds INR (0.9-1.1) Fibrinogen (184-400) mg/dl POC pH (7.35-7.45) POC pO2 (80-95) mmHg ABG pH (Temp Correct) (7.35-7.45) POC Sodium (135-144) mmol/L Sodium 149 H (136-145) mmol/L Potassium (3.5-5.1) mmol/L Chloride 120 H (98-107) mmol/L BUN 53 H (7-18) mg/dl BUN/Creatinine Ratio 42.5 H (10-20) Glucose 198 H (70-99) mg/dl Lactate (0.4-2.0) mmol/L Calcium 7.7 L (8.5-10.1) mg/dl Phosphorus 1.7 L D (2.5-4.9) mg/dl Magnesium 2.5 H (1.8-2.4) mg/dl Procalcitonin (0-0.5) ng/ml Crossmatch See Detail 09/06/20 09/06/20 09/06/20 Range/Units 05:34 05:34 05:57 WBC (4.8-10.8) K/uL RBC (4.7-6.1) M/uL Hgb (14.0-18.0) g/dL POC Hgb 6.5 L* (14.0-18.0) g/dl Hct (42-52) % POC Hct 19 L* (42-52) % MCHC (32-36) g/dL RDW Std Deviation (36.4-46.3) fL RDW Coeff of Sheri (11.5-14.5) % Plt Count (130-400) K/uL Neut # (Auto) (1.4-6.5) K/uL Lymph # (Auto) (1.2-3.4) K/uL [place] # (Auto) (0.11-0.59) K/uL Immature Gran # (Auto) (0.00-0.02) K/uL PT (9.0-12.0) Seconds INR (0.9-1.1) Fibrinogen (184-400) mg/dl POC pH 7.33 L (7.35-7.45) POC pO2 70 L (80-95) mmHg ABG pH (Temp Correct) 7.334 L (7.35-7.45) POC Sodium 147 H (135-144) mmol/L Sodium (136-145) mmol/L Potassium (3.5-5.1) mmol/L Chloride (98-107) mmol/L BUN (7-18) mg/dl BUN/Creatinine Ratio (10-20) Glucose (70-99) mg/dl Lactate 2.3 H* (0.4-2.0) mmol/L Calcium (8.5-10.1) mg/dl Phosphorus (2.5-4.9) mg/dl Magnesium (1.8-2.4) mg/dl Procalcitonin 0.51 H (0-0.5) ng/ml Crossmatch 09/06/20 09/06/20 Range/Units 06:40 06:40 WBC (4.8-10.8) K/uL RBC (4.7-6.1) M/uL Hgb (14.0-18.0) g/dL POC Hgb (14.0-18.0) g/dl Hct (42-52) % POC Hct (42-52) % MCHC (32-36) g/dL RDW Std Deviation (36.4-46.3) fL RDW Coeff of Sheri (11.5-14.5) % Plt Count (130-400) K/uL Neut # (Auto) (1.4-6.5) K/uL Lymph # (Auto) (1.2-3.4) K/uL [place] # (Auto) (0.11-0.59) K/uL Immature Gran # (Auto) (0.00-0.02) K/uL PT 12.4 H (9.0-12.0) Seconds INR 1.2 H (0.9-1.1) Fibrinogen 441 H (184-400) mg/dl POC pH (7.35-7.45) POC pO2 (80-95) mmHg ABG pH (Temp Correct) (7.35-7.45) POC Sodium (135-144) mmol/L Sodium (136-145) mmol/L Potassium (3.5-5.1) mmol/L Chloride (98-107) mmol/L BUN (7-18) mg/dl BUN/Creatinine Ratio (10-20) Glucose (70-99) mg/dl Lactate (0.4-2.0) mmol/L Calcium (8.5-10.1) mg/dl Phosphorus (2.5-4.9) mg/dl Magnesium (1.8-2.4) mg/dl Procalcitonin (0-0.5) ng/ml Crossmatch PG Care Time/CCT Total # of Minutes Spent Total Time Spent with Patient: Total time spent is greater than 50% in coordination of care (as documented) at patient's floor/unit and/or counseling patient: Coding Level of Care Code 23145 Subseq Hosp Care Lvl 3 Diagnoses Melena K92.1 GI bleed K92.2
[2020-09-06] MEDS ORDERED: RAPID SEQUENCE INDUCTION BAG ONE (11:34)
[2020-09-06] MEDS ORDERED: ROCURONIUM BROMIDE 10 MG/ML 5 ML VIAL IV ONE ×2 (11:44→12:20)
[2020-09-06] MEDS ORDERED: INSULIN ASPART 100 UNITS/ML 3 ML PEN SC SCH (12:00)
[2020-09-06] MEDS ORDERED: ETOMIDATE 2 MG/ML 20 ML VIAL IV ONE (12:20)
[2020-09-06] MEDS ORDERED: MIDAZOLAM HCL 5 MG/ML VIAL IV ONE (12:20)
[2020-09-06] MEDS ORDERED: CALCIUM CHLORIDE 10% 10 ML SYR IV ONE (12:20)
[2020-09-06] MEDS ORDERED: SODIUM BICARB 8.4% INJ 50 MEQ/50 ML SYR IV ONE (12:20)
[2020-09-06] MEDS ORDERED: LIDOCAINE HCL 2% MPF (LOCAL) 5 ML VIAL INFIL ONE (12:20)
--- NOTE | 2020-09-06 12:33 | Anesthesia Procedure Note ---
Anesthesia Procedure Note Intubation Note Vital Signs: Cariopulmonary Arrest Date of procedure: 09/06/20 Indication for intubation: Cardiac arrest Consent: Risk / Benefits Reviewed With: Emergency Monitors attached: Blood Pressure, CO2, EKG and Pulse Oximetry Time out completed: No Premedication: None Paralytic medication: None Equipment: Glidescope View: Grade 3 Endotracheal tube: Oral Attempts: 2 Tube placement confirmation: auscultation and Positive CO2 detection Procedure Summary: Checked on mona au to offer additional assistance with airway if needed. Patient was in cardiac arrest with chest compression in progress. Code being managed by pit recorder, but the team had difficulty securing the airway. Medical history included a large R parotid tumor. My first attempt utilized glidescope. The tip of the epiglottis was visualized, but the remainder of view was obscured by several focus of brown/green material that appeared to be very thick mucous versus tumor burden. I attempted to suction or scrape away some of this material while chest compressions were held, but it was not able to be removed. At this point, the glidescope was removed and chest compressions/bag ventilation was resumed. On second attempt, I attempted to push an endotracheal tube past this material, which we were able to do, although the cords were never directly visualized. Chest compression were again resumed and the tube placement was confirmed with auscultation and continuous colormetric CO2. The mona au team continued resuscitation efforts following intubation.
--- NOTE | 2020-09-06 12:37 | Critical Care Progress Note ---
Date of Service September 06, 2020 Assessment & Plan (1) Acute respiratory failure with hypoxia and hypercapnia: --Chest x-ray 09/03/2020 personally reviewed: Portable film, increased cardiac si lhouette. Right costophrenic angle is clean, left costophrenic angle is blunted. No clear lung infiltrate. CT abdomen pelvis: Lower part of the lung shows multiple pulmonary nodules bilaterally, small left-sided pleural effusion. The nodules are highly suspicious for metastatic disease --Acute blood loss anemia Patient initially came in with the same complaint He got transfused and he was hemoglobin was stable Patient again started having melanotic stools last night He got a hypotensive and was started on vasopressors GI on board --Metabolic encephalopathy Multifactorial Patient does have underlying history of dementia I think delirium from being in the hospital as well as getting medications is playing a significant role. Unsure if the patient's cancer is also playing a role when it comes to his encephalopathy. Aspiration precautions --Acute hypoxic hypercapnic respiratory failure Multifactorial I think patient has undiagnosed WEI/OHS which is playing a role for his hypercapnia COVID-19 PCR -ve on 09/02. Procalcitonin 3.9 Recommend keeping oxygen saturation between 88-92% --Hypernatremia Free water deficit 5 L Continue with D5 water --BRINDA Monitor BUNs/creatinine Avoid nephrotoxic medications --Multiple pulmonary nodules This likely represents metastatic disease given the location --Left-sided pleural effusion Small No need to do thoracentesis --Morbid obesity --Overall prognosis is very poor given the significant metastatic disease Plan: In/Out: +2035, urine output 1550 Patient had another melanotic stool while I was examining the patient. He is getting more tachycardic and tachypneic. Lactic acidosis is also seen. Could be from underlying bleed. We will get CT abdomen pelvis to make sure there is no retroperitoneal bleed. Start 2 units PRBC. We will give bolus 1 L normal saline For the lactic acidosis. I have personally spent 37 minutes of critical care time in the direct management of this patient. This is a life/limb threatening event. This includes time spent evaluating patient, direct bedside care, chart review, placing orders, interpretation of diagnostic studies, discussion with consultants, patient, and family members, as well as other required patient management activities. This time is exclusive of all separately billable procedures, and teaching time and separate from and in addition to any other critical care service time. Please note the above document was generated using voice recognition software. It may contain grammatical, syntax or spelling errors. (2) Encephalopathy: Admission and Anticipated Discharge Date Admission Date: September 02, 2020 Subjective Patient seen and examined at bedside. He was on Precedex 1.2 at the time of examination. Overnight again he was having melanotic stools with hemoglobin trending down to 5.7. Patient was getting 1 unit PRBC at the time of examination. He was also started on vasopressors. Review of Systems Review of Systems: Unobtainable due to mental health condition and Unobtainable due to cognitive status Physical Exam Physical Exam: Constitutional: No acute distress HEENT: PERRLA, right parotid ulcerating mass appreciated. Respiratory system: Decreased air entry bilaterally, no wheeze, rhonchi, mild crackles bilateral lower lobes CVS: S1-S2 positive Abdomen: Soft, nontender, nondistended, positive bowel sounds x4, obese Extremities: +2 pulses bilaterally radialis/ dorsalis pedis, no cyanosis, +2 pitting edema bilateral lower extremity, ecchymosis bilateral upper extremities dorsal surface Neuro: Patient responds to voice but does not follow commands, moves all extremities appropriately Psych: Unable to assess G/U: Positive [place] Skin: no rashes, warm and dry Lymphatic: no cervical or axillary lymphadenopathy Results & Data Results & Data ([facility]) Vital Signs (Past 12 Hours) Vital Signs Temp Pulse Resp BP Pulse Ox 09/06/20 11:43 37 C 146 H 18 149/62 H 95 09/06/20 11:41 166 H 18 92/41 L 97 09/06/20 11:00 36.6 C 133 H 28 H 92/52 L 98 09/06/20 10:30 36.7 C 135 H 28 H 120/45 L 98 09/06/20 09:30 36.7 C 117 H 28 H 104/49 L 96 09/06/20 09:00 36.6 C 109 H 26 H 114/62 96 09/06/20 08:30 36.8 C 134 H 18 118/57 L 94 09/06/20 08:16 37 C 146 H 18 149/62 H 95 09/06/20 08:01 36.9 C 112 H 18 112/57 L 98 09/06/20 05:01 72 22 97 09/06/20 05:00 88 23 83/41 L 96 09/06/20 04:00 37.1 C 102 H 22 92/38 L 97 09/06/20 03:01 101 H 22 99/45 L 97 09/06/20 03:00 103 H 25 H 88 L 09/06/20 02:01 105 H 20 111/52 L 90 09/06/20 02:00 111 H 23 88 L 09/06/20 01:01 106 H 21 95 09/06/20 01:00 93 H 22 98/74 L 96 09/06/20 00:37 99 H 91/46 L 09/06/20 05:28 09/06/20 05:28 Coding Level of Care Code Critical Care 1st 30-74 mins Diagnoses Acute respiratory failure with hypoxia and hypercapnia J96.01; J96.02 Encephalopathy G93.40 Time Spent (min) 37
--- NOTE | 2020-09-06 12:43 | Discharge Summary ---
Date of Service September 06, 2020 Admission HPI Per Admitting Provider History obtained through discussion with daughter - [phone] Joe Wolf is an 80yo male with history of Atrial Fibrillation, HTN, HLP and large SCC of right neck presenting with abdominal pain and SOB as well as nausea, lightheadedness, melena. Hgb=6.2 concerning for acute blood loss anemia possibly secondary to GIB. Patient has been in and out of hospitals over the last few weeks. 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 He was seen in the ER at [facility] and was sent to [facility] in [place]. They were told that the bleeding in the tumor was from an arterial source. The vessel was embolized and the patient was sent home. The PET scan was never completed. Approximately 2 weeks ago he developed weakness and shortness of breath. He was taken to [facility] and diagnosed with a UTI as well as having his Fentanyl patch discontinued. He returned home. He was seen by his home Physical Therapist on 08/28/20 and was thought to have right sided facial droop concerning for a new CVA. He returned to [facility] for workup. He was told that he did not have a stroke but that the neck tumor was compressing the nerves and structures in his neck. He returned to [place] on 08/29/[address] Mae from [facility] to begin a plan for chemotherapy. She felt it best to start chemotherapy and i mmunotherapy on an outpatient basis. The family wishes to pursue their cancer treatment locally so Dr. Mae discussed the plan with Dr. Salas in [place]. They have an appointment to see Dr. Salas on 09/05/20. Patient returned home from [place] last evening. He has been complaining of lightheadedness, nausea and abdominal pain as well as decreased PO intake. His daughter states he has had dark, tarry stools for the last 1.5 weeks. Patient states that he feels "sick" but does not offer more specific complaints at this time. ER Course: Vancomycin 2500mg, Protonix bolus and drip, Zofran 4mg IV, Morphine 2mg IV, Cefepime, 2u PRBCs started, ER reports dark, Heme+ stools Principal Diagnosis anemia acute GI bleeding hemorrhagic shock Discharge Exam Constitutional well nourished, + ill appearing and + morbidly obese; no acute distress Eyes PERRL, conjunctivae normal, anicteric sclerae + pinpoint pupils ENMT Mouth: oral mucous membranes not dry Neck + thick neck (large fungating mass on right neck, foul smelling, purulent) Respiratory + tachypneic; no respiratory distress and no labored breathing Auscultation: lungs clear to auscultation bilaterally; no crackles, no rales, no rhonchi and no wheezes Cardiovascular Rate/Rhythm: regular rhythm and + tachycardic Heart Sounds: no murmur and no cardiac rub Vessels: normal peripheral pulses and radial pulses present; no JVD Extremities: + edema Gastrointestinal (Abdomen) Inspection/Auscultation: abdomen normal to inspection and normal bowel sounds; abdomen not distended Percussion/Palpation: abdomen soft; abdomen nontender, no guarding, abdomen not rigid and no hepatosplenomegaly Musculoskeletal Head/Neck/Chest: normocephalic and head atraumatic Spine: no cervical spinal tenderness, no cervical muscular tenderness, no thoracic spinal tenderness and no lumbar spinal tenderness Skin no rashes, warm and dry Neurologic CN's II-XI intact bilaterally (mild facial asymmetry), moves all extremities, + confused and + obtunded Motor/Sensory: no tremor and no sensory deficit Psychiatric Orientation: + not alert Apperance: + disheveled Affect: euthymic affect; no anxious affect and no tearful affect Discharge Data Allergies Allergy/AdvReac Type Severity Reaction Status Date / Time No Known Allergies Allergy Verified 09/01/20 22:27 Consultations 09/02/20 00:47 ED Decision to Admit Stat 09/02/20 02:33 Consult Gastroenterology Routine 09/04/20 08:00 Consult Hematology Routine Consult Palliative Care Routine 09/04/20 17:13 Consult Pulmonology Routine Procedures Performed Operation Date: 09/03/20 08:00 <No data on this case meets the specified criteria> Operation Date: 09/06/20 12:35 <No data on this case meets the specified criteria> Ordered Studies 09/01/20 21:45 CT head/brain wo con Urgent CT soft tissue neck wo con Urgent 09/01/20 22:21 CT abd pelvis wo con Urgent 09/03/20 11:19 US venous doppler UE LT Routine 09/03/20 19:30 US point of care ultrasound Routine 09/06/20 07:25 CT abd pelvis wo con Stat 09/06/20 11:46 US point of care ultrasound Stat Hospital Course (1) Hemorrhagic shock: melena overnight levophed started this morning while preparing for intubation for EGD, patient lost pulse unable to resuscitate patient patient passed around 1220pm on 09-06 (2) GI bleed: PPI started for melena overnight this morning, continued to have multiple melenotic bowel movements GI consulted pre-EGD intubation planned -- patient lost pulse during intubation unable to be resuscitated (3) Anemia due to acute blood loss: 1-15 Hg 6.2, normochromic, normocytic not currently on any blood thinners. Concern for UGIB given complaint of abdominal pain, nausea as well as epigastric discomfort on exam. He is hemodynamically stable at present. -Transfuse 2u PRBCs 1-16 post transfusion hgb did fall, will transfuse another 2 units -Protonix bolus bid -GI Consultation appreciated, continues on protonix bolus bid -Zofran PRN nausea 1-18 Hg 9.1 today tachycardia improved after transfusions GI stated that his BM was brown and to hold off on invasive procedures for now 09-06 melena recurred Hg 6, given two units pRBC (4) Encephalopathy: several days ago, patient was conversational, alert 18 acutely worse, thought to be related to morphine in setting of ESRD, uremia, hypercapnia required multiple doses of haldol today due to picking at lines, bandages, hitting nurses continue sitter at bedside checked ABG which shows hypercapnia, which is likely exacerbating encephalopathy 09-05 precedex started by ICU, weaning off opiates and haldol 09-06 continues to be obtunded does not follow commands after intubation, planning to check MRI (5) Sepsis: 1-16 WBC 38.6 - Neutrophil predominant. Slight elevation in myelocytes/metamyelocytes as well. ?reactive in setting of acute stress, underlying malignancy, ?infection -Check peripheral smear -18 tachycardia and WBC > 12 leukocytosis improving cont empiric antibiotic coverage with Vancomycin and Cefepime - right neck mass foul smelling, red, likely cellulitis is source of sepsis WBC improving with antibiotics, cont current vanc, cefepime blood cultures NGTD urine culture negative, final (6) Cellulitis: involving the right neck fungating mass, which is foul smelling and purulent MRSA swab negative, vanc stopped cont cefepime (7) Hypernatremia: likely related to dehydration starting 1/2 NS at 80ml/hr repeat BMP in a couple hours and q8h after that (8) BRINDA (acute kidney injury): 09-01 Cr 2.37 today, uncertain baseline. 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 s/p embolization of bleeding vessel adjacent to the mass has not had complete staging as of yet Imaging performed on admit concerning for pulmonary metastases, possible malignant effusion as well as possible metastases to liver and spleen. missed his 09-[address] Lovelace. 09-[address] Major saw patient poor prognosis given fast growth, high tumor burden, comorbid conditions not a candidate for chemo or immunotherapy now due to delirium -- reassess as outpatient once stable palliative options may be available (10) Acute respiratory failure with hypoxia and hypercapnia: 09-04 ABG with pCO2 49, pH 7.3, oxygen 80% on RA requiring 3L oxymask likely related to sedating medications and underlying obstructive sleep apnea WEI Likely exacerbated by large right neck mass consulted pulmonary for eval of possible intubation vs Bipap 09-05 did not tolerate bipap well due to strap overlying tender right neck mass patient transferred to ICU for close monitoring (11) Atrial fibrillation: Patient with pacer in place. -Currently not on anticoagulation therapy given recent bleeding from tumor -Metoprolol IV -holding Diltiazem -Continue to monitor (12) Dementia: Patient with mild dementia -Continue Aricept (13) Hypertension: Blood pressure stable -Hold Metoprolol in setting of acute bleed -Continue to monitor (14) Dyslipidemia: Chronic. Stable -Continue Atorvastatin DVT NO chemoppx given concern for acute bleed, SCDs Code - Full per discussion with daughter Dispo - Admit to PCU POC - Blossom Kimble - [phone]. Updated on patient's status and care plan at time of admission. Total Time Total Time Spent Total Time Spent (In Minutes): 35 Total Time Includes: Examination of the Patient and Communication With Other Providers Discharge Plan Discharge Items Patient Disposition: Discharge Diagnosis: hemorrhagic shock gastrointestinal bleed acute blood loss anemia Addtl Attending Provider Instructions: Spoke with Daughter Yaritza who will make arrangements for patient Coding Level of Care Code D/C Day Management >30 mins Diagnoses Hemorrhagic shock R57.8 GI bleed K92.1 GI bleed type/associated pathology: melena Anemia due to acute blood loss D62 Encephalopathy G93.40 Sepsis A41.9 Sepsis acute organ dysfunction status: unspecified Sepsis type: sepsis due to unspecified organism Cellulitis L03.221 Site of cellulitis: neck Hypernatremia E87.0 BRINDA (acute kidney injury) N17.9 Neoplasm of neck D49.89 Acute respiratory failure with hypoxia and hypercapnia J96.01; J96.02 Atrial fibrillation I48.20 Atrial fibrillation type: unspecified chronic Dementia F03.90 Dementia behavioral disturbance: without behavioral disturbance Dementia type: unspecified type Hypertension I10 Hypertension type: essential hypertension Dyslipidemia E78.5
--- NOTE | 2020-09-06 12:48 | Communication Note ---
Date of Service: September 06, 2020 Critical CARE addendum: Patient was tachycardic in the 170s, hypotensive on Levophed 0.05. He was getting more in respiratory distress and tachypneic. Very pale skin. Saturating 88%. Plan was made to intubate. Given the history of right parotid mass bronchoscopy intubation was planned. After oxygenating the patient patient was given 100 mg of lidocaine, 25 mg of etomidate and 120 mg of rocuronium. Bronchoscope was introduced. Patient had very thick dry secretions in the mouth with big chunks. They were not able to be suctioned even with the help of yank and bronchoscope. Patient was oxygenated with bag mask. DL MAC 4 was also utilized but again vallecula was seen and the airway was obstructed by thick mucus. Before patient lost pulse and CPR was started. Anesthesia was bedside during code, tried with glide scope but faced similar difficulty. 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 Patient had another melanotic stools during CPR. Patient was given total of 6 epinephrine, 3 bicarb and 1 calcium chloride. Unfortunately patient was not able to be revived. Dr. Meraz was bedside was updated. Yaritza Wolf, patient's daughter was updated. I have personally spent 35 minutes of critical care time in the direct management of this patient. This is a life/limb threatening event. This includes time spent evaluating patient, direct bedside care, chart review, placing orders, interpretation of diagnostic studies, discussion with consultants, patient, and family members, as well as other required patient management activities. This time is exclusive of all separately billable procedures, and teaching time and separate from and in addition to any other critical care service time. Please note the above document was generated using voice recognition software. It may contain grammatical, syntax or spelling errors. Coding Level of Care Code Critical Care 1st 30-74 mins Time Spent (min) 35
--- NOTE | 2020-09-06 13:00 | Communication Note ---
Date of Service: September 06, 2020 PRONOUNCEMENT NOTE:- Date: 09/06/2020 Time: 12:21 PM I was contacted by nursing staff regarding the patients declining status and concerns for imminent demise. Assessment: JASON GARCIA was called as patient last pulse. CPR was performed. Patient got total of 6 epi, 3 bicarb and 1 calcium chloride. Unfortunately patient was not able to be revived. After approximately 30 minutes of performing CPR, patient was pronounced Pupils were fixed and dilated without response. No palpable pulses appreciated. No spontaneous breaths noted. Heart sounds were absent. No response to painful stimuli. Time of : 1221 as pronounced by myself. Patient's daughter Yaritza was called and informed, appropriate response to grief appreciated. Condolences provided. Questions were addressed and emotional support was provided. Patients primary service was contacted and made aware of patient demise. Please note the above document was generated using voice recognition software. It may contain grammatical, syntax or spelling errors.Any formal questions or concerns about the content, text or information contained within the body of this dictation should be directly addressed to the provider for clarification. Coding Level of Care Code None
--- NOTE | 2020-09-06 13:00 | Death Pronouncement Note ---
Date of Service September 06, 2020 Pronouncement Note Admission Date Admission Date: September 02, 2020 Date and Time of Date of : 09/06/20 Time of : 12:20 PCOD Preliminary cause of : Cardiac arrest Contributing Factors (1) Hemorrhagic shock: (2) GI bleed: (3) Anemia due to acute blood loss: (4) Encephalopathy: (5) Sepsis: (6) Cellulitis: (7) Hypernatremia: (8) BRINDA (acute kidney injury): (9) Neoplasm of neck: (10) Acute respiratory failure with hypoxia and hypercapnia: (11) Atrial fibrillation: (12) Dementia: (13) Hypertension: (14) Dyslipidemia: Hospital Course Hospital Course: Patient was admitted on 09-02 for weakness and several days of melena. Found have heme positive stools and anemia requiring two units PRBC. Patient was started on PPI. GI was consulted and decided to pursue conservative measures, as melena had improved and patient was having brown BM's. Patient was started on vanc and cefepime for sepsis thought to be related to cellulitis of right neck fungating mass versus pneumonia. MRSA swab was negative and so eventually vanc was stopped. Patient continued to complain of severe pain at right neck and ear. He required multiple doses of morphine which was later changed to dilaudid. Thought to be related to opiate pain medications, patient became encephalopathic. He was thrashing in the bed, hitting nurses. A sitter was present at bedside at all times. No physical restraints were used, but he did require haldol. He stopped following commands, would not answer questions. On 09-05 he was transferred to ICU to be started on precedex drip and weaned off all opiate medications. He had mild hypercapnic hypoxic respiratory failure related to WEI exacerbated by sedating medications, but was unable to tolerate the bipap due to large painful right neck mass. On 09-06 morning he developed shock requiring levophed. His hemoglobin dropped to 6, requiring 2 units PRBC. He was noted to have recurrence of melena. GI was again consulted. Around noon, patient was going to be intubated in preparation for EGD. During intubation, patient had cardiac arrest. Please see code note by Dr. Alejandre for full details. Patient was unable to be resuscitated. Daughter Yaritza was notified. Additional Data Confirmation of : no pulse, no respirations, no heart sounds and pupils fixed and dilated Family: contacted Attending/PCP notified?: Yes Attending physician: Xin Meraz MD Was code activated?: Yes Autopsy requested?: No nurse examiner notified?: No Organ bank notified?: No Coding Level of Care Code D/C Day Management >30 mins Diagnoses Hemorrhagic shock R57.8 GI bleed K92.1 GI bleed type/associated pathology: melena Anemia due to acute blood loss D62 Encephalopathy G93.40 Sepsis A41.9 Sepsis type: sepsis due to unspecified organism Sepsis acute organ dysfunction status: unspecified Cellulitis L03.221 Site of cellulitis: neck Hypernatremia E87.0 BRINDA (acute kidney injury) N17.9 Neoplasm of neck D49.89 Acute respiratory failure with hypoxia and hypercapnia J96.01; J96.02 Atrial fibrillation I48.20 Atrial fibrillation type: unspecified chronic Dementia F03.90 Dementia type: unspecified type Dementia behavioral disturbance: without behavioral disturbance Hypertension I10 Hypertension type: essential hypertension Dyslipidemia E78.5
== END 2020-09-06 12:21 | disposition expired | DRG 377 ==
LOC: ED 20:26 → 2S 09-02 01:48 → SUATTDRO 09-02 01:48 → 2S 09-02 02:27 → 1E 09-05 11:19